=== PATIENT | male | born 1975 | race Hispanic/Latino ===

== ENCOUNTER 2016-07-16 08:17 | Inpatient (IN) | payer OTHER, SELFPAY ==
[2016-07-16 08:18] VITALS: BMI 28.1
--- NOTE | 2016-07-16 08:38 | ED PDOC ---
Arrival/HPI - General Chief Complaint: Chest Pain Time Seen by Provider: 07/16/16 08:21 Historian: Patient, Family - History of Present Illness Narrative History of Present Illness (Text): 07/16/16 08:35 41 year old male presents to the emergency department with chest pain that began at 02:00 today. Patient states the pain is constant and radiating to the left shoulder/back. 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 Patient reports he is a smoker. He denies pleuritic pain. Denies leg pain or swelling. Denies headache or neck pain. Denies fever or trauma. States he awoke with this chest pain, and it has been constant. States pain not worse with movements or exertion. Denies recent URI symptoms or cough. PMD: Dr. Paula Colon ([facility]) Time/Duration: 24 hours Symptom Onset: Sudden Symptom Course: Unchanged Modifying Factors (Text): None Associated Symptoms (Text): None Past Medical History - Provider Review Nursing Documentation Reviewed: Yes - Infectious Disease Hx of Infectious Diseases: None - Tetanus Immunization Tetanus Immunization: Unknown - Cardiac Hx Hypertension: Yes - Integumentary Other/Comment: lump on left forehead pt stated "I have had that for years" 2cm x 2cm - Musculoskeletal/Rheumatological Hx Falls: No - Psychiatric Hx Depression: No Hx Emotional Abuse: No Hx Physical Abuse: No Hx Substance Use: No - Surgical History Other/Comment: sx 2008 2 discs cervical 2 discs lumbar spine - Anesthesia Hx Anesthesia: Yes Hx Anesthesia Reactions: No Hx Malignant Hyperthermia: No - Suicidal Assessment Feels Threatened In Home Enviroment: No Family/Social History - Physician Review Nursing Documentation Reviewed: Yes Family/Social History: Unknown Family HX, Other (denies CAD or NE in mother or father, uncle reportedly with hx of NE) Smoking Status: Heavy Smoker > 10 Cigarettes Daily Hx Alcohol Use: No Hx Substance Use: No Hx Substance Use Treatment: No Allergies/Home Meds Allergies/Adverse Reactions: Allergies No Known Allergies Allergy (Verified 07/16/16 08:26) Home Medications: Home Meds Medication Instructions Recorded Confirmed Clonazepam 0.2 mg PO BID 12/11/13 07/16/16 Metoprolol Succinate 100 mg PO DAILY 12/11/13 07/16/16 OXcarbazepine [Trileptal] 300 mg PO BID 07/16/16 07/16/16 amLODIPine [Norvasc] 5 mg PO DAILY 07/16/16 07/16/16 Review of Systems - Review of Systems Constitutional: Fatigue. absent: Fevers Eyes: absent: Eye Pain ENT: absent: Hearing Changes Respiratory: absent: SOB, Other Cardiovascular: Chest Pain. absent: Edema, Calf Pain, LEYVA Gastrointestinal: absent: Abdominal Pain, Diarrhea Genitourinary Male: absent: Dysuria Musculoskeletal: Back Pain. absent: Neck Pain Skin: absent: Rash Neurological: absent: Headache, Dizziness, Focal Weakness Endocrine: absent: Polyuria Hemo/Lymphatic: absent: Easy Bleeding Psychiatric: absent: Depression Physical Exam - Physical Exam Narrative Physical Exam (Text): Head: Atraumatic. Normocephalic. Eyes: PERRL. EOMI. Conjunctivae are not pale. ENT: Mucous membranes are moist and intact. Oropharynx is clear and symmetric. Neck: Supple. Full ROM. No JVD. No lymphadenopathy. Cardiovascular: Regular rate. Regular rhythm. Mild systolic murmur. BP and pulses equal in both upper extremities. Pulmonary/Chest: No evidence of respiratory distress. Clear to auscultation bilaterally. No wheezing, rales or rhonchi. Abdominal: Soft and non-distended. There is no tenderness. No rebound, guarding, or rigidity. No organomegaly. Good bowel sounds. Back: No CVA tenderness. No reproducible back pain. Extremities: No edema. No cyanosis. No clubbing. Full range of motion in all extremities. No calf tenderness. No pain with palpation or ROM of shoulder. Skin: Skin is warm and dry. No petechiae. No purpura. Neurological: Alert, awake, and oriented to person, place, time, and situation. Normal speech. Psychiatric: Good eye contact. Normal interaction, affect, and behavior. Vital Signs Reviewed: Yes Vital Signs Temp Pulse Resp BP Pulse Ox 07/16/16 10:50 80 26 H 140/100 H 100 07/16/16 10:49 78 15 100 07/16/16 10:44 74 18 110/72 100 07/16/16 10:15 75 18 154/106 H 100 07/16/16 08:22 98.3 F 77 19 151/104 H 99 Temperature: Afebrile Blood Pressure: Hypertensive Pulse: Regular Respiratory Rate: Normal Appearance: Positive for: Non-Toxic, Uncomfortable Pain Distress: Mild Mental Status: Positive for: Alert and Oriented X 3 Medical Decision Making ED Course and Treatment: Differential Diagnosis include but are not limited to: Plan: Will obtain chest x-ray and check labs. Prior Visits: Notes and results from previous visits were reviewed. Patient last seen in ED on 12/11/13 and admitted. Progress Notes: Dr. Dejesus was paged at 08:38AM to review initial EKG. Patient has prior EKG from 12/11/13 which was reviewed. He did have some st changes noted on EKG from this date, although current EKG appears to reveal hyperacute t wave morphology and st segment elevations in inferior leads. EKG reviewed with Dr. Dejesus, on -call cardiac cath ag equipment field service technician. Patient had episode of chest pain at work recently. He states that he was recently seen by a ag equipment field service technician over the past two weeks and has a "normal' stress test and echocardiogram. Patient has equal pulses and blood pressure in both upper extremities. Mediastinum is not widened on chest x-ray. Troponin is in indeterminate range at 0.05. Patient was reevaluated and states pain had initially resolved spotaneously but has returned at 10:15 and is radiating to the left upper back. Patient took his aspirin and metoprolo PRIOR TO ARRIVAL. Patient noted to become diaphoretic and bradycardic. Repeat EKG ordered. Repeat EKG was performed at 10:23 based on new and worsening symptoms. EKG findings were consistent with acute myocardial infarction. [facility] was called. Repeat EKG and patient's new and worsening symptoms reviewed with on- call cath ag equipment field service technician, Dr. Dejesus. Plavix and heparin ordered. Morphine ordered for pain with no relief. Nausea intermittent, improved. I updated patient's family with patients change in EKG and condition, as well as discussed with patient need for emergency cardiology evaluation and intervention. BP remained stable in ED. Care transferred to house doctor in ED for transportation to cardiac cath. Case d/w Dr. Mcpherson, oncall physician, accepts care to his service. - Critical Care Critical Care Minutes: 45 minutes - Lab Interpretations Lab Results: 07/16/16 09:02 07/16/16 09:02 Lab Results 07/16/16 10:00: Urine Color Yellow, Urine Appearance Clear, Urine pH 6.0, Ur Specific [place] 1.020, Urine Protein Negative, Urine Glucose (UA) Negative, Urine Ketones Negative, Urine Blood Negative, Urine Nitrate Negative, Urine Bilirubin Negative, Urine Urobilinogen 0.2, Ur Leukocyte Esterase Negative 07/16/16 09:02: WBC 11.9 H, RBC 4.48, Hgb 15.1, Hct 43.5, MCV 97.1, MCH 33.7, MCHC 34.7, RDW 13.3, Plt Count 313, MPV 10.9, Gran % 63.5, Lymph % (Auto) 27.5, [place] % (Auto) 6.5 H, Eos % (Auto) 1.8, Baso % (Auto) 0.7, Gran # 7.58 H, Lymph # 3.3, [place] # 0.8 H, Eos # 0.2, Baso # 0.08, PT 10.0, INR 0.93, APTT 23.5 L, D- Dimer, Quantitative 0.19, Sodium 143, Potassium 4.7, Chloride 102, Carbon Dioxide 30, Anion Gap 16, BUN 8, Creatinine 0.8, Est GFR ( Amer) > 60, Est GFR (Non-Af Amer) > 60, Random Glucose 127 H, Calcium 10.8 H, Total Bilirubin 0.5, AST 24, ALT 32, Alkaline Phosphatase 74, Lactate Dehydrogenase 407, Total Creatine Kinase 61, Troponin I 0.05, Total Protein 7.5, Albumin 4.2, Globulin 3.3, Albumin/Globulin Ratio 1.3 - RAD Interpretation Radiology Orders: 07/16/16 08:37 CHEST PORTABLE [RAD] Stat - EKG Interpretation EKG Interpretation (Text): 07/16/16 18:38 EKG 08:21 normal sinus rhythm, st changes in inferior leads and lateral leads, possible early repolarization cannot exclude ischemia, compared to EKG from 2013 EKG 10:23 normal sinus rhythm rate of [address] elevations in inferior leads and leads v4-v6, acutely elevated when compared to previous Interpreted by ED Physician: Yes Type: 12 lead EKG - Medication Orders Current Medication Orders: Alprazolam (Xanax) 0.25 mg PO TID ELOISA PRN Reason: Protocol Stop: 07/23/16 18:01 Last Admin: 07/16/16 18:05 Dose: 0.25 MG Behavioural Document 07/16/16 18:05 GLI (Rec: 07/16/16 18:[address]) Maintenance Maintenance Dose Yes Nonmedicinal Nonmedicinal Interventions Redirect Behavior Behavior for Medication: Anxiety Atorvastatin Calcium (Lipitor) 80 mg PO DIN [facility] Last Admin: 07/16/16 18:04 Dose: 80 MG Clopidogrel Bisulfate (Plavix) 75 mg PO DAILY [facility] Sodium Chloride (Sodium Chloride 0.9%) 1,000 mls @ 100 mls/hr IV .Q10H [facility] Stop: 07/16/16 21:29 Last Admin: 07/16/16 18:21 Dose: 100 MLS/HR eMAR Start Stop Document 07/16/16 18:21 GLI (Rec: 07/16/16 18:[address]) Intravenous Solution Start Date 07/16/16 Start Time 18:21 End Date 07/16/16 Nitroglycerin/Dextrose (Nitroglycerin 50 Mg/250 Ml D5w) 250 mls @ 1.5 mls/hr IV .Q24H PRN; Protocol; 5 MCG/MIN PRN Reason: chest pain Last Admin: 07/16/16 12:00 Dose: 1.5 MLS/HR eMAR Start Stop Document 07/16/16 12:00 GLI (Rec: 07/16/16 12:[address]) Intravenous Solution Start Date 07/16/16 Start Time 12:00 End Date 07/16/16 Metoprolol Tartrate (Lopressor) 25 mg PO Q6H [facility] Last Admin: 07/16/16 18:05 Dose: 25 MG MAR Pulse and Blood Pressure Document 07/16/16 18:05 GLI (Rec: 07/16/16 18:[address]) Pulse Pulse Rate (60-90 beats/min) 90 Blood Pressure Blood Pressure (100/60-150/90 mm Hg) 121/88 Morphine Sulfate (Morphine) 2 mg IVP Q2H PRN PRN Reason: Pain, moderate (4-7) Last Admin: 07/16/16 18:14 Dose: 2 MG MAR Pain Assessment Document 07/16/16 18:14 GLI (Rec: 07/16/16 18:[address]) Pain Reassessment Is this a pain reassessment? No Sleep Is patient sleeping during reassessment? No Presence of Pain Presence of Pain Yes Pain Scale Used Pain Scale Used Numeric Location Left, Right or Bilateral Left Pain Location Body Site Chest Description Description Constant Intensity of Pain at present 10 Pain Behavior Rubbing Site Facial Grimacing Aggravating Factors Changing Position Alleviating Factors Medication Effects of Pain restless IVP Administration Document 07/16/16 18:14 GLI (Rec: 07/16/16 18:[address]) Charges for Administration # of IVP Administrations 1 Oxcarbazepine (Trileptal) 300 mg PO BID ELOISA PRN Reason: Protocol Last Admin: 07/16/16 18:04 Dose: 300 MG Behavioural Document 07/16/16 18:04 GLI (Rec: 07/16/16 18:[address]) Maintenance Maintenance Dose Yes Nonmedicinal Nonmedicinal Interventions Redirect Behavior Behavior for Medication: Anxiety Ramipril (Altace) 5 mg PO DAILY ELOISA Discontinued Medications Alprazolam (Xanax) 0.25 mg PO STAT STA PRN Reason: Protocol Stop: 07/16/16 12:14 Last Admin: 07/16/16 12:18 Dose: 0.25 MG Behavioural Document 07/16/16 12:18 [facility] (Rec: 07/16/16 12:[address]) Maintenance Maintenance Dose Yes Nonmedicinal Nonmedicinal Interventions Redirect Re-Assess: Reassess Psych Meds Document 07/16/16 13:18 GLI (Rec: 07/16/16 16:[address]) Reassess Psych Med Effective Aspirin (Aspirin Chewable) 81 mg PO STAT STA Stop: 07/16/16 08:41 Last Admin: 07/16/16 08:59 Dose: Atropine Sulfate (Atropine) Confirm Administered Dose 1 mg .ROUTE .STK-MED ONE Stop: 07/16/16 10:39 Last Admin: 07/16/16 11:40 Dose: Clopidogrel Bisulfate (Plavix) Confirm Administered Dose 600 mg .ROUTE .STK-MED ONE Stop: 07/16/16 10:30 Last Admin: 07/16/16 10:51 Dose: Clopidogrel Bisulfate (Plavix) 600 mg PO STAT STA Stop: 07/16/16 10:28 Last Admin: 07/16/16 10:28 Dose: 600 MG Fentanyl (Fentanyl) Confirm Administered Dose 100 mcg .ROUTE .STK-MED ONE Stop: 07/16/16 10:40 Last Admin: 07/16/16 11:14 Dose: 100 MCG Comments: IV. 50 mcg @ [address] Dejesus. 50 mcg @ [address] Dejesus MAR Pain Assessment Document 07/16/16 11:14 [facility] (Rec: 07/16/16 11:40 KMR [facility]) Pain Reassessment Is this a pain reassessment? No Sleep Is patient sleeping during reassessment? No Heparin Sodium (Porcine) (Heparin) Confirm Administered Dose 5,000 units .ROUTE .STK-MED ONE Stop: 07/16/16 10:29 Last Admin: 07/16/16 10:51 Dose: Heparin Sodium (Porcine) (Heparin) 5,000 units IV ONCE ONE PRN Reason: Protocol Stop: 07/16/16 10:28 Last Admin: 07/16/16 10:50 Dose: 5,000 UNITS eMAR Start Stop Document 07/16/16 10:50 [facility] (Rec: 07/16/16 10:50 [facility] [id number]) Intravenous Solution Start Date 07/16/16 Start Time 10:27 End Date 07/16/16 End time 10:29 Total Infusion Time 2 Heparin Sodium (Porcine) (Heparin) Confirm Administered Dose 10,000 units .ROUTE .STK-MED ONE Stop: 07/16/16 10:39 Last Admin: 07/16/16 11:13 Dose: 3,000 UNITS Comments: IV per Dr. Dejesus Nitroglycerin/Dextrose (Nitroglycerin 50 Mg/250 Ml D5w) Confirm Administered Dose 250 mls @ ud IV .STK-MED ONE Stop: 07/16/16 10:41 Last Admin: 07/16/16 11:20 Dose: 0.2 MG Comments: IC by Dr Dejesus eMAR Start Stop Document 07/16/16 11:20 [facility] (Rec: 07/16/16 11:42 [facility] Intravenous Solution Start Date 07/16/16 Start Time 11:20 End Date 07/16/16 End time 11:20 Total Infusion Time 0 Heparin Sodium (Porcine) (Heparin 1000 Units/500 Ml Ns) Confirm Administered Dose 1,500 mls @ ud IV .STK-MED ONE Stop: 07/16/16 10:41 Sodium Chloride (Sodium Chloride 0.9%) 500 mls @ 1,000 mls/hr IV .Q30M STA Stop: 07/16/16 11:11 Last Admin: 07/16/16 10:53 Dose: 1,000 MLS/HR eMAR Start Stop Document 07/16/16 10:53 [facility] (Rec: 07/16/16 10:54 [facility] [id number]) Intravenous Solution Start Date 07/16/16 Start Time 10:53 End Date 07/16/16 End time 11:25 Total Infusion Time 32 Iodixanol (Visipaque 320 Mg/Ml 100 Ml) Confirm Administered Dose 100 ml IV .STK- MED ONE Stop: 07/16/16 10:41 Last Admin: 07/16/16 11:43 Dose: Iodixanol (Visipaque 320 Mg/Ml 200 Ml) Confirm Administered Dose 200 ml IV .STK- MED ONE Stop: 07/16/16 10:41 Last Admin: 07/16/16 11:05 Dose: 200 ML Comments: During cath eMAR Start Stop Document 07/16/16 11:05 [facility] (Rec: 07/16/16 11:43 [facility] Intravenous Solution Start Date 07/16/16 Start Time 11:05 End Date 07/16/16 End time 11:05 Total Infusion Time 0 Iohexol (Omnipaque 350mg/Ml 50 Ml) Confirm Administered Dose 50 ml .ROUTE .STK- MED ONE Stop: 07/16/16 10:41 Last Admin: 07/16/16 11:05 Dose: 50 ML Comments: During cath Lidocaine HCl (Lidocaine 2% 20ml Vial) Confirm Administered Dose 20 ml .ROUTE .STK-MED ONE Stop: 07/16/16 10:39 Last Admin: 07/16/16 11:05 Dose: 8 ML Comments: SC into right groin Midazolam HCl (Versed Inj) Confirm Administered Dose 2 mg .ROUTE .STK-MED ONE Stop: 07/16/16 10:40 Last Admin: 07/16/16 11:04 Dose: 2 MG Comments: IV by Dr. Dejesus Morphine Sulfate (Morphine) Confirm Administered Dose 2 mg .ROUTE .STK-MED ONE Stop: 07/16/16 10:38 Last Admin: 07/16/16 10:35 Dose: 2 MG MAR Pain Assessment Document 07/16/16 10:35 [facility] (Rec: 07/16/16 10:53 [facility] [id number]) Pain Reassessment Is this a pain reassessment? No Sleep Is patient sleeping during reassessment? No Presence of Pain Presence of Pain Yes Pain Scale Used Pain Scale Used Numeric Location Pain Location Body Site Chest Description Intensity of Pain at present 10 Re-Assess: MAR Pain Assessment Document 07/16/16 11:35 GLI (Rec: 07/16/16 16:05 GLI [id number]) Pain Reassessment Is this a pain reassessment? Yes Sleep Is patient sleeping during reassessment? Yes Nitroglycerin (Nitrostat Sl Tab) Confirm Administered Dose 0.4 mg SL .STK-MED ONE Stop: 07/16/16 11:53 Last Admin: 07/16/16 11:58 Dose: 0.4 MG Non-Formulary Medication (Clonazepam [Clonazepam]) 0.2 mg PO BID ELOISA Ondansetron HCl (Zofran Inj) Confirm Administered Dose 4 mg .ROUTE .STK-MED ONE Stop: 07/16/16 10:49 Last Admin: 07/16/16 11:08 Dose: Ondansetron HCl (Zofran Inj) 4 mg IVP ONCE ONE Stop: 07/16/16 10:48 Last Admin: 07/16/16 10:48 Dose: 4 MG IVP Administration Document 07/16/16 10:48 [facility] (Rec: 07/16/16 10:54 [facility] [id number]) Charges for Administration # of IVP Administrations 1 - Scribe Statement The provider has reviewed the documentation as recorded by the Shilo Galarza Provider Scribe Attestation: All medical record entries made by the Shilo were at my direction and personally dictated by me. I have reviewed the chart and agree that the record accurately reflects my personal performance of the history, physical exam, medical decision making, and the department course for this patient. I have also personally directed, reviewed, and agree with the discharge instructions and disposition. Disposition/Present on Arrival - Present on Arrival Any Indicators Present on Arrival: No History of DVT/PE: No History of Uncontrolled Diabetes: No Urinary Catheter: No History of Decub. Ulcer: No History Surgical Site Infection Following: None - Disposition Have Diagnosis and Disposition been Completed?: Yes Diagnosis: Acute myocardial infarction Disposition: HOSPITALIZED Disposition Time: 10:45 Patient Plan: Admission, ICU Condition: CRITICAL
[2016-07-16 09:03] LABS: ADD MANUAL DIFF? NO
[2016-07-16 09:06] LABS: BASO # 0.08 [, K/mm3] (0.0-2.0); BASO % 0.7 % (0.0-3.0); EOS # 0.2 (0.0-0.7); EOS % 1.8 % (1.5-5.0); GRAN # 7.58 (1.4-6.5); GRAN % 63.5 % (50.0-68.0); HEMATOCRIT 43.5 % (42.0-52.0); LYMPH # 3.3 (1.2-3.4); LYMPH % 27.5 % (22.0-35.0); MEAN CELL VOLUME 97.1 fL (80.0-105.0); MEAN CORPUSCULAR HEMOGLOBIN 33.7 pg (25.0-35.0); MEAN CORPUSCULAR HGB CONC 34.7 g/dl (31.0-37.0); MEAN PLATELET VOLUME 10.9 fl (7.0-11.0); MONO # 0.8 (0.1-0.6); MONO % 6.5 % (1.0-6.0); PLATELET COUNT 313 [, 10^3/uL] (120.0-450.0); RED CELL DISTRIBUTION WIDTH 13.3 % (11.5-14.5); WHITE BLOOD COUNT 11.9 [, 10^3/ul] (4.5-11.0)
[2016-07-16 09:19] LABS: ALB/GLOB RATIO 1.3 (1.1-1.8); ALKALINE PHOSPHATASE 74 U/L (38-133); ALT/SGPT 32 U/L (7-56); AST/SGOT 24 U/L (15-59); BILIRUBIN,TOTAL 0.5 mg/dL (0.2-1.3); BLOOD UREA NITROGEN 8 mg/dL (7-21); CALCIUM 10.8 mg/dL (8.4-10.5); CARBON DIOXIDE 30 mmol/L (21-33); CHLORIDE 102 mmol/L (98-107); GFR AFRICAN-AMERICAN > 60; GLUCOSE,RANDOM 127 mg/dL (70-110); POTASSIUM 4.7 mmol/L (3.6-5.0); SODIUM 143 mmol/L (132-148); TOTAL PROTEIN 7.5 g/dL (5.8-8.3)
[2016-07-16 09:24] LABS: INR 0.93 (0.93-1.08); PARTIAL THROMBOPLASTIN TIME 23.5 Seconds (23.7-30.8)
[2016-07-16 09:25] LABS: D DIMER 0.19 mg/L FEU (0-0.50)
[2016-07-16 09:31] LABS: TROPONIN I 0.05 ng/mL
[2016-07-16 10:04] LABS: URINE BILIRUBIN NEGATIVE (NEGATIVE); URINE BLOOD NEGATIVE (NEGATIVE); URINE GLUCOSE (UA) NEGATIVE (NEGATIVE); URINE KETONE NEGATIVE (NEGATIVE); URINE LEUKOCYTE ESTERASE NEGATIVE Leu/uL (NEGATIVE); URINE PROTEIN NEGATIVE mg/dL (<30 mg/dL); URINE UROBILINOGEN 0.2 E.U./dL (<1 E.U./dL)
[2016-07-16 10:09] LABS: URINE APPEARANCE CLEAR (CLEAR); URINE COLOR YELLOW (YELLOW)
[2016-07-16] MEDS ORDERED: Nitroglycerin 2% Ointment Foilpak UD TOP STA (10:12)
[2016-07-16] MEDS ORDERED: Morphine 2 mg/ml ISec ONE (10:37)
[2016-07-16] MEDS ORDERED: Lidocaine 2% Inj (20ml) ONE (10:38)
[2016-07-16] MEDS ORDERED: Midazolam 2 MG/2 ML VIAL ONE (10:39)
[2016-07-16] MEDS ORDERED: Nitroglycerin 50mg in D5W 250 ML IV ONE (10:40)
[2016-07-16] MEDS ORDERED: Iohexol 350mgl/ml 50 ML ONE (10:40)
[2016-07-16] MEDS ORDERED: Iodixanol 320 MG/ML 100 ML BOTTLE IV ONE (10:40)
[2016-07-16] MEDS ORDERED: Iodixanol 320 MG/ML 200 ML BOTTLE IV ONE (10:40)
[2016-07-16] MEDS ORDERED: Sodium Chloride 0.9% 500 ML IV STA (10:42)
--- NOTE | 2016-07-16 11:42 | CP.PCM.PN ---
Subjective - Date & Time of Evaluation Date of Evaluation: 07/16/16 Time of Evaluation: 10:27 - Subjective Subjective: Responded stat to "[facility] in the ER". After initial treatment in the ER,with O2 and cardiac moniter in place and accompanied by the staff from the ER and myself,pt was transferred to the dental laboratory technician apprentice and endorsed to the staff there. Objective - Vital Signs/Intake and Output Vital Signs (last 24 hours): Temp Pulse Resp BP Pulse Ox 98.3 F 74 18 110/72 100 07/16/16 08:22 07/16/16 10:44 07/16/16 10:44 07/16/16 10:44 07/16/16 10:44 - Medications Medications: Current Medications Amlodipine Besylate (Norvasc) 5 mg PO DAILY ELOISA Atorvastatin Calcium (Lipitor) 80 mg PO DIN ELOISA Metoprolol Succinate (Toprol Xl) 50 mg PO DAILY ELOISA Oxcarbazepine (Trileptal) 300 mg PO BID ELOISA PRN Reason: Protocol - Labs Labs: PT 10.0 Seconds (9.9-11.8) 07/16/16 09:02 INR 0.93 (0.93-1.08) 07/16/16 09:02 APTT 23.5 Seconds (23.7-30.8) L 07/16/16 09:02
[2016-07-16] MEDS: Nitroglycerin 50mg in D5W 250 ML IV PRN (12:00)
[2016-07-16] MEDS: Morphine 2 mg/ml ISec IVP PRN ×3 (12:00→20:57)
[2016-07-16] MEDS: Sodium Chloride 0.9% 1,000 ML IV SCH ×2 (12:06→18:21)
--- NOTE | 2016-07-16 12:49 | RAD ---
HISTORY: Chest pain COMPARISON: 12/11/2013. FINDINGS: LUNGS: No active pulmonary disease. PLEURA: No significant pleural effusion identified, no pneumothorax apparent. CARDIOVASCULAR: No radiographic findings to suggest acute or significant cardiovascular disease. OSSEOUS STRUCTURES: No significant abnormalities. VISUALIZED UPPER ABDOMEN: Normal. OTHER FINDINGS: None. IMPRESSION: No active disease. No significant interval change compared to the prior examination(s).
--- NOTE | 2016-07-16 15:51 | CARD ---
APPROVED REPORT EKG Measurement Heart [id number] <Conclusion> Normal sinus rhythm Inferior infarct, possibly acute Lateral injury pattern ACUTE LA Abnormal ECG
--- NOTE | 2016-07-16 15:56 | CARD ---
APPROVED REPORT EKG Measurement Heart [id number] <Conclusion> Normal sinus rhythm Early repolarization vs early injury pattern Normal ECG
[2016-07-16] MEDS ORDERED: CLONAZEPAM PO SCH (18:00)
--- NOTE | 2016-07-16 20:13 | CARDCATH ---
PROCEDURE DATE: 07/16/2016 HISTORY: This is a 41-year-old man with a history of hypertension and tobacco abuse who presents to the Emergency Room with severe chest discomfort. He reportedly has had chest pain on and off for the past week and had a recent stress test and echocardiogram which were reportedly unremarkable. Initial EKG was nondiagnostic; however, repeat cardiogram with persistent pain and marked bradycardia revealed evidence of marked inferolateral ST elevations. He was brought emergently to the cardiac catheterization lab. INDICATION: Acute myocardial infarction. FINDINGS: HEMODYNAMICS: The aortic pressure was 140/90 with a left ventricular pressure of 140/15. CORONARY ANATOMY: 1. The left mainstem was short and normal. 2. Left anterior descending artery had mild irregularities in its mid and distal segment. A large first diagonal branch had a long 90% stenosis. This was a moderate size vessel. 3. The left circumflex artery gave rise to 2 obtuse marginal branches, the second which was large and occluded proximally. 4. The right coronary artery was codominant and had mild irregularities. LEFT VENTRICULOGRAPHY: Hand injection performed in the left ventricle revealing evidence of relatively normal wall motion with an ejection fraction of 60%. CORONARY INTERVENTION: The patient received 5000 units of heparin in the Emergency Room. However, the ACT was still only 160 seconds. An additional 3000 units of heparin was administered. A 3.5 EBU guide catheter was utilized and the lesion in the obtuse marginal branch successfully crossed with use of a Irma wire. Following this, initial inflations were performed with a 2.5 x 10 mm balloon. Subsequently, after reconstitution f the flow there was evidence of a long diffuse 90% stenosis in the proximal segment of the first obtuse marginal branch. Subsequently, a 3.0 x 30 mm Resolut drug-eluting stent was taken and advanced into the obtuse marginal and inflated to 14 atmospheres. There was 0% residual stenosis following the intervention. There was no evidence of significant thrombus seen. VLAD grade 0 flow was present before intervention and VLAD grade 3 flow present following intervention. RIGHT FEMORAL ARTERIOGRAPHY: Right femoral arteriogram revealed no evidence of significant disease and appropriate level of arterial puncture. The puncture site was then closed with deployment of an Angio-Seal device. CONCLUSION: Acute myocardial infarction secondary to occluded large obtuse marginal branch, severe first diagonal disease and normal LV function. Staged PCI of obtuse marginal branch with a 3.0 x 30 mm Resolut drug-eluting stent. RECOMMENDATIONS: Aspirin and Plavix therapy will be continued for at least 1 year. Beta jose and statin therapy as well as TUNG inhibitor has been initiated. Consideration will be given to staged PCI of this diagonal branch. Hector Dejesus MD cc: [id number] TT: 07/16/2016 20:13:03 sn MTDD
--- NOTE | 2016-07-16 20:20 | CON ---
DATE: 07/16/2016 REQUESTING PHYSICIAN: Dr. Mcpherson REASON FOR CONSULTATION: Acute myocardial infarction. HISTORY: This is a 41-year-old man who presents to the Emergency Room with severe retrosternal chest discomfort. Initial electrocardiogram was nondiagnostic. While in the Emergency Room, he had worse jackie pain with an episode of bradycardia. Repeat electrocardiogram showed evidence of marked ST elev ations in the inferolateral leads. He was brought emergently to the cardiac catheterization lab. He continues to have ongoing chest pain. He apparently has been having pain for the past 2 weeks and w as seen by his physician and underwent a stress test and echocardiogram which was reportedly unremark able. He has no prior cardiac history. He is a smoker of 1-2 packs per day. He also has a history of hypertension. There is no family history of premature heart disease. His cholesterol status is u ncertain. PAST MEDICAL HISTORY: Notable for the problems mentioned above. He underwent prior back surgery for lumbar and cervical disk issues. MEDICATIONS AT HOME: Metoprolol, Norvasc, and Trileptal, as well as clonazepam. ALLERGIES: He has no reported allergies. 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 He drinks occasionally. FAMILY HISTORY: Both parents are alive and well. REVIEW OF SYSTEMS: A 10 point review of systems limited, but unremarkable. PHYSICAL EXAMINATION: GENERAL: He is an anxious appearing middle-aged man. VITAL SIGNS: His blood pressure is 110/70 with a pulse of 74 in sinus, respirations are 16. He is a febrile. HEENT: Male pattern baldness present. Normocephalic, atraumatic. NECK: Supple, no JVD. CHEST: A few scattered rhonchi. HEART: PMI normal position. No pathologic gallops noted. ABDOMEN: Soft, nontender with normoactive bowel sounds. EXTREMITIES: No clubbing, cyanosis or edema. SKIN: Warm and dry. PSYCHIATRIC: Normal mood and affect. DIAGNOSTIC DATA: Electrocardiogram reveals sinus rhythm with marked ST elevations in the inferolater al leads. Chest x-ray will be reviewed. DIAGNOSTIC DATA: White count is 11.9. Hemoglobin and hematocrit 15.1 and 43.5 with a platelet count of 313,000. PT, PTT are normal. Potassium 4.7. BUN and creatinine 8 and 0.8. Glucose 127. Initi al troponin 0.05. IMPRESSION: 1. Acute inferolateral wall myocardial infarction. 2. History of hypertension and tobacco abuse. RECOMMENDATIONS: The patient will be brought emergently to the catheterization lab to undergo cardia c catheterization and possible coronary intervention if suitable anatomy is found. Risks and benefit s have been discussed with him. Smoking abstinence will be encouraged. Further plans will be made b ased upon the results of catheterization. Thank you for this consultation. Hector Dejesus MD cc: [id number] TT: 07/16/2016 20:19:55 Confirmation # [id number] Dictation # [id number]
--- NOTE | 2016-07-16 20:40 | CON ---
DATE: 07/16/2016 SUBJECTIVE: This is a 41-year-old gentleman without significant past medical history who presented with chest pain that began at 2:00 p.m. today. The pain was described as constant, radiating to the left shoulder. The patient did have similar episodes about 2 weeks ago, which was attributed to musculoskeletal origin at that time. The pain resolved at that time as well; however, came back earlier today. The pain appeared to be getting worse with exertion and relieved to some degree at rest. However, pain again is constant. PAST MEDICAL HISTORY: Hypertension. SOCIAL HISTORY: The patient is a heavy smoker. He smokes more than 10 cigarettes a day. No alcohol or illicit drug abuse. FAMILY HISTORY: Noncontributory. MEDICATIONS AT HOME: Metoprolol, Trileptal, and Norvasc. ALLERGIES: NKDA. REVIEW OF SYSTEMS: Revealed 12 organ system other than mentioned in history of present illness is negative. PHYSICAL EXAMINATION: VITAL SIGNS: Heart rate 78, blood pressure 130/86, oxygen saturation 100% on nasal cannula, respiratory rate 18, temperature 98.2. HEAD AND NECK: Atraumatic. LUNGS: Clear to auscultation bilaterally. HEART: Regular rate and rhythm. S1, S2 normal. ABDOMEN: Soft, nontender, nondistended. MUSCULOSKELETAL: No C/C/E. NEUROLOGIC: The patient moves all extremities spontaneously. SKIN: Moist. PSYCHIATRIC: The patient is alert and oriented x 3. LABORATORY DATA: WBC 11.9, hemoglobin 15.1, platelet count 313. Sodium 143, potassium 4.7, chloride 102, carbon dioxide 30, BUN 8, creatinine 0.8, glucose 127, AST 24, ALT 32, troponin 0.05. INR 0.923, PTT 23.5. EKG showed ST elevation in III, aVF, V4, V5, V6, and reciprocal changes avL. Chest x-ray showed no active disease, no significant interval change compared with the prior examination. ASSESSMENT AND PLAN: This is a 41-year-old gentleman with ST elevated myocardial infarction, status post percutaneous coronary intervention and stent placement in the right coronary artery. The patient had some chest pain after procedure. Nitroglycerin drip started. Morphine given. The patient will be continued on Plavix, aspirin, Leif inhibitors, beta blockers, Lipitor. We will continue to target euvolemia, euglycemia, normothermia and oxygen saturation more than 90%. We will continue with deep venous thrombosis and gastrointestinal prophylaxis. Addendum: patient started to have chest pain post procedure. Nitro drip started , Dr. Dejesus notified--agreed with nitro, ordered Ms04, no trip to director of labor and delivery. ccm time 40 min Giancarlo Harrell MD cc: [id number] TT: 07/16/2016 20:40:08 Confirmation # [id number] Dictation # [id number] MTDD
--- NOTE | 2016-07-16 21:21 | CP.PCM.HP ---
History of Present Illness - History of Present Illness History of Present Illness: CC: Chest Pain History of Present Illness: A 41 year old male presents to the emergency department with chest pain that began at 02:00 today. Patient states the pain is constant and radiating to the left shoulder/back. 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 Patient reports he is a smoker. He denies pleuritic pain. Denies leg pain or swelling. Denies headache or neck pain. Denies fever or trauma. States he awoke with this chest pain, and it has been constant. States pain not worse with movements or exertion. Denies recent URI symptoms or cough. In the ER, Code heart was called for worsening symptoms and ST elevation in the inferior leads. Emergent Cardiac Catheterization showed 1st Obtuse Marginal Branch of the LCX Coronary artery was completely occluded and angioplasty with stent was done. EF 60%. Currently still C/o on and off chest pain, and on nitroglycerine drip. Denies dyspnea or orthopnea. Had recent Cardiac Stress test and Holter monitor for persistent tachycardia. PMD: Dr. Paula Colon ([facility]) Present on Admission - Present on Admission Any Indicators Present on Admission: No History of DVT/PE: No History of Uncontrolled Diabetes: No Urinary Catheter: No Decubitus Ulcer Present: No Review of Systems - Review of Systems All systems: reviewed and no additional remarkable complaints except - Cardiovascular Cardiovascular: As Per HPI Past Patient History - Infectious Disease Hx of Infectious Diseases: None - Tetanus Immunizations Tetanus Immunization: Unknown - Past Medical History & Family History Past Medical History?: Yes Pertinent Family History: Uncle Heart attack - Past Social History Smoking Status: Heavy Smoker > 10 Cigarettes Daily Alcohol: Social Drugs: Denies - CARDIAC Hx Hypertension: Yes - INTEGUMENTARY Other/Comment: lump on left forehead pt stated "I have had that for years" 2cm x 2cm - MUSCULOSKELETAL/RHEUMATOLOGICAL Hx Falls: No - PSYCHIATRIC Hx Depression: No Hx Emotional Abuse: No Hx Physical Abuse: No Hx Substance Use: No - SURGICAL HISTORY Other/Comment: sx 2008 2 discs cervical 2 discs lumbar spine - ANESTHESIA Hx Anesthesia: Yes Hx Anesthesia Reactions: No Hx Malignant Hyperthermia: No Meds Allergies/Adverse Reactions: Allergies Allergy/AdvReac Type Severity Reaction Status Date / Time No Known Allergies Allergy Verified 07/16/16 08:26 Physical Exam - Constitutional Appears: Well, No Acute Distress - Head Exam Head Exam: ATRAUMATIC, NORMAL INSPECTION, NORMOCEPHALIC - Eye Exam Eye Exam: EOMI, Normal appearance, PERRL Pupil Exam: NORMAL ACCOMODATION, PERRL - ENT Exam ENT Exam: Mucous Membranes Moist, Normal Exam - Neck Exam Neck exam: Positive for: Full Rom, Normal Inspection - Respiratory Exam Respiratory Exam: Clear to Auscultation Bilateral, NORMAL BREATHING PATTERN. absent: Rales - Cardiovascular Exam Cardiovascular Exam: REGULAR RHYTHM, +S1, +S2 - GI/Abdominal Exam GI & Abdominal Exam: Normal Bowel Sounds, Soft. absent: Tenderness - Extremities Exam Extremities exam: Positive for: full ROM, normal capillary refill, normal inspection. Negative for: pedal edema Additional comments: Right Groin with no hematoma. Dorsalis pedis palpable and good volumem warm LE on the same side of the cath site. - Back Exam Back exam: FULL ROM, NORMAL INSPECTION - Neurological Exam Neurological exam: Alert, CN II-XII Intact, Normal Gait, Oriented x3, Reflexes Normal - Psychiatric Exam Psychiatric exam: Normal Affect, Normal Mood - Skin Skin Exam: Dry, Intact, Normal Color, Warm Results - Vital Signs Recent Vital Signs: Last Vital Signs Temp 98.2 F 07/16/16 11:30 Pulse 90 07/16/16 18:05 Resp 20 07/16/16 16:31 BP 121/88 07/16/16 18:05 Pulse Ox 99 07/16/16 16:31 - Labs Result Diagrams: 07/16/16 09:02 07/16/16 09:02 Labs: Laboratory Results - last 24 hr 07/16/16 07/16/16 11:10 14:14 Troponin I 1.91 H* D TSH 3rd Generation 1.35 - EKG Data Interpretation: Acute Ischemia EKG comments: ST Elevation Inferior Leads. - Imaging and Cardiology Chest x-ray Status: Report reviewed by me Additional comment: No Acute cardiopulmonary finding Assessment & Plan (1) Acute myocardial infarction Assessment and Plan: S/p Cardiac Catheterization and angioplasty with Stent in LCX 1st OM Oxygen Continue Tridil drip Plavix/ASA/Lopressor/Altase Morphine PRN Status: Acute Priority: High
[2016-07-17] MEDS: Morphine 2 mg/ml ISec IVP PRN ×3 (01:00→20:53)
[2016-07-17 05:56] LABS: ADD MANUAL DIFF? NO
[2016-07-17 06:02] LABS: BASO # 0.03 [, K/mm3] (0.0-2.0); BASO % 0.2 % (0.0-3.0); EOS # 0.1 (0.0-0.7); EOS % 0.3 % (1.5-5.0); GRAN # 14.06 (1.4-6.5); GRAN % 79.1 % (50.0-68.0); HEMATOCRIT 35.5 % (42.0-52.0); LYMPH # 2.4 (1.2-3.4); LYMPH % 13.3 % (22.0-35.0); MEAN CORPUSCULAR HEMOGLOBIN 33.6 pg (25.0-35.0); MEAN CORPUSCULAR HGB CONC 34.6 g/dl (31.0-37.0); MEAN PLATELET VOLUME 10.6 fl (7.0-11.0); MONO # 1.3 (0.1-0.6); MONO % 7.1 % (1.0-6.0); PLATELET COUNT 265 [, 10^3/uL] (120.0-450.0); RED CELL DISTRIBUTION WIDTH 13.5 % (11.5-14.5); WHITE BLOOD COUNT 17.8 [, 10^3/ul] (4.5-11.0)
[2016-07-17 06:48] LABS: BLOOD UREA NITROGEN 10 mg/dL (7-21); CALCIUM 8.8 mg/dL (8.4-10.5); CARBON DIOXIDE 29 mmol/L (21-33); CHLORIDE 103 mmol/L (98-107); CHOLESTEROL 118 mg/dL (130-200); GFR AFRICAN-AMERICAN > 60; GLUCOSE,RANDOM 103 mg/dL (70-110); POTASSIUM 3.9 mmol/L (3.6-5.0); SODIUM 139 mmol/L (132-148)
--- NOTE | 2016-07-17 08:03 | CP.PCM.PN ---
Subjective - Date & Time of Evaluation Date of Evaluation: 07/17/16 Time of Evaluation: 08:00 - Subjective Subjective: Continued CP in ICU. On IV NTG and got MS. Still pain across the chest. Cath report noted. S/P acute ILMI with PCI 2nd OM yesterday. Residual diag br. stenoses noted. V/S noted. RSR PE: Lungs: clear Cor.: S1S2 Abd.: soft Ext.: no edema Neuro.: alert I/O 2000/800 Labs noted: trop 26.6 yesterday. TC = 118, LDL= 61 ECG: RSR, mild ST elevations 2,3,F, V 5,6. Peaked T waves V2,3 Objective - Vital Signs/Intake and Output Vital Signs (last 24 hours): Temp Pulse Resp BP Pulse Ox 98.2 F 77 20 117/71 96 07/16/16 11:30 07/17/16 06:30 07/17/16 06:30 07/17/16 06:30 07/17/16 06:30 - Medications Medications: Current Medications Alprazolam (Xanax) 0.25 mg PO TID [facility] PRN Reason: Protocol Stop: 07/23/16 18:01 Last Admin: 07/16/16 18:05 Dose: 0.25 mg Aspirin (Aspirin) 325 mg PO DAILY [facility] Atorvastatin Calcium (Lipitor) 80 mg PO DIN [facility] Last Admin: 07/16/16 18:04 Dose: 80 mg Clopidogrel Bisulfate (Plavix) 75 mg PO DAILY [facility] Nitroglycerin/Dextrose (Nitroglycerin 50 Mg/250 Ml D5w) 250 mls @ 1.5 mls/hr IV .Q24H PRN; Protocol; 5 MCG/MIN PRN Reason: chest pain Last Admin: 07/16/16 12:00 Dose: 1.5 mls/hr Metoprolol Tartrate (Lopressor) 25 mg PO Q6H [facility] Last Admin: 07/17/16 05:57 Dose: 25 mg Morphine Sulfate (Morphine) 2 mg IVP Q2H PRN PRN Reason: Pain, moderate (4-7) Last Admin: 07/17/16 01:00 Dose: 2 mg Oxcarbazepine (Trileptal) 300 mg PO BID [facility] PRN Reason: Protocol Last Admin: 07/16/16 18:04 Dose: 300 mg Ramipril (Altace) 5 mg PO DAILY [facility] - Labs Labs: 07/17/16 05:50 07/17/16 06:36 PT 10.0 Seconds (9.9-11.8) 07/16/16 09:02 INR 0.93 (0.93-1.08) 07/16/16 09:02 APTT 23.5 Seconds (23.7-30.8) L 07/16/16 09:02 Assessment and Plan - Assessment and Plan (Free Text) Plan: Assessment. Continue CP s/p acute ILMI with PCI 2nd OM Residual large diag br. stenoses Smoker Discogenic disease/back surgery Plan: NPO Cardiac cath later this AM. Case D/W Dr. Dejesus. Additional recs to follow.
--- NOTE | 2016-07-17 08:54 | CP.PCM.PN ---
Subjective - Date & Time of Evaluation Date of Evaluation: 07/17/16 Time of Evaluation: 07:15 - Subjective Subjective: Seen and examined at the bed side. S/P Cardiac Cath and has been complaining chest pain despite Nitroglycerin Infusion overnight. Patient is also on Plavix, BB, Altace, Statin,and Oxygen. Chest pain 8/10 on and off despite iv Morphine with radiation to the left shoulder and Jaw. Repeat troponin is high 26.5. The Privacy Manager reevaluated the patient and going for repeat Cardiac catheterization. Denies sob. Objective - Vital Signs/Intake and Output Vital Signs (last 24 hours): Temp Pulse Resp BP Pulse Ox 98.2 F 77 20 117/71 96 07/16/16 11:30 07/17/16 06:30 07/17/16 06:30 07/17/16 06:30 07/17/16 06:30 - Medications Medications: Current Medications Alprazolam (Xanax) 0.25 mg PO TID [facility] PRN Reason: Protocol Stop: 07/23/16 18:01 Last Admin: 07/16/16 18:05 Dose: 0.25 mg Aspirin (Aspirin) 325 mg PO DAILY [facility] Atorvastatin Calcium (Lipitor) 80 mg PO DIN [facility] Last Admin: 07/16/16 18:04 Dose: 80 mg Clopidogrel Bisulfate (Plavix) 75 mg PO DAILY [facility] Nitroglycerin/Dextrose (Nitroglycerin 50 Mg/250 Ml D5w) 250 mls @ 1.5 mls/hr IV .Q24H PRN; Protocol; 5 MCG/MIN PRN Reason: chest pain Last Admin: 07/16/16 12:00 Dose: 1.5 mls/hr Metoprolol Tartrate (Lopressor) 25 mg PO Q6H [facility] Last Admin: 07/17/16 05:57 Dose: 25 mg Morphine Sulfate (Morphine) 2 mg IVP Q2H PRN PRN Reason: Pain, moderate (4-7) Last Admin: 07/17/16 01:00 Dose: 2 mg Oxcarbazepine (Trileptal) 300 mg PO BID [facility] PRN Reason: Protocol Last Admin: 07/16/16 18:04 Dose: 300 mg Ramipril (Altace) 5 mg PO DAILY [facility] - Labs Labs: 07/17/16 05:50 07/17/16 06:36 PT 10.0 Seconds (9.9-11.8) 07/16/16 09:02 INR 0.93 (0.93-1.08) 07/16/16 09:02 APTT 23.5 Seconds (23.7-30.8) L 07/16/16 09:02 - Constitutional Appears: Non-toxic, In Acute Distress - Head Exam Head Exam: ATRAUMATIC, NORMAL INSPECTION, NORMOCEPHALIC - Eye Exam Eye Exam: EOMI, Normal appearance, PERRL Pupil Exam: NORMAL ACCOMODATION, PERRL - ENT Exam ENT Exam: Mucous Membranes Moist, Normal Exam - Neck Exam Neck Exam: Full ROM, Normal Inspection. absent: Lymphadenopathy - Respiratory Exam Respiratory Exam: Clear to Ausculation Bilateral, NORMAL BREATHING PATTERN - Cardiovascular Exam Cardiovascular Exam: REGULAR RHYTHM, +S1, +S2. absent: Murmur - GI/Abdominal Exam GI & Abdominal Exam: Soft, Normal Bowel Sounds. absent: Tenderness - Extremities Exam Extremities Exam: Full ROM, Normal Capillary Refill, Normal Inspection. absent : Joint Swelling, Pedal Edema - Back Exam Back Exam: NORMAL INSPECTION - Neurological Exam Neurological Exam: Alert, Awake, CN II-XII Intact, Normal Gait, Oriented x3 - Psychiatric Exam Psychiatric exam: Normal Affect, Normal Mood - Skin Skin Exam: Dry, Intact, Normal Color, Warm Assessment and Plan (1) Acute myocardial infarction Assessment & Plan: R/O Coronary Spasm Vs Thrombosis Vs Dissection EKG stat O2 Via NC Add ASA Morphine IV PRN Continue Current Care including Tridil drip Will Repeat Trop Status: Acute
[2016-07-17] MEDS ORDERED: Lidocaine 2% Inj (20ml) ONE (09:28)
[2016-07-17] MEDS ORDERED: Iodixanol 320 MG/ML 200 ML BOTTLE IV ONE (09:29)
[2016-07-17] MEDS ORDERED: Midazolam 2 MG/2 ML VIAL ONE ×2 (09:29→10:59)
[2016-07-17] MEDS ORDERED: Iodixanol 320 MG/ML 100 ML BOTTLE IV ONE (09:29)
[2016-07-17] MEDS ORDERED: Iohexol 350mgl/ml 50 ML ONE (09:29)
[2016-07-17] MEDS ORDERED: Metoprolol Succinate 50 mg XL Tab PO SCH (10:00)
--- NOTE | 2016-07-17 10:36 | CARD ---
APPROVED REPORT EKG Measurement Heart [id number] 164P-6 [id number] <Conclusion> Normal sinus rhythm Left axis deviation Evolving ILMI T waves are peaked V2,3
[2016-07-17] MEDS ORDERED: Eptifibatide 0.75 mg/ml 100 ML IV ONE (10:53)
[2016-07-17] MEDS ORDERED: Eptifibatide 20 mg/10mL Inj IVP ONE (10:54)
[2016-07-17] MEDS ORDERED: Sodium Chloride 0.9% 1,000 ML IV SCH (11:30)
[2016-07-17 11:57] LABS: HEMATOCRIT 37.3 % (42.0-52.0); MEAN CELL VOLUME 97.1 fL (80.0-105.0); MEAN CORPUSCULAR HEMOGLOBIN 33.3 pg (25.0-35.0); MEAN CORPUSCULAR HGB CONC 34.3 g/dl (31.0-37.0); MEAN PLATELET VOLUME 10.7 fl (7.0-11.0); RED CELL DISTRIBUTION WIDTH 13.7 % (11.5-14.5); WHITE BLOOD COUNT 17.6 [, 10^3/ul] (4.5-11.0)
--- NOTE | 2016-07-17 11:57 | CARDCATH ---
PROCEDURE DATE: 07/17/2016 CARDIAC CATHETERIZATION AND CORONARY INTERVENTION REPORT HISTORY: This is a 41-year-old man who underwent emergency PCI of his left circumflex artery yesterd ay in the setting of an acute anterolateral wall myocardial infarction. He had recurrent pain overni ght and again early this morning. His EKG improved. However, his troponin was elevated. Repeat car diac catheterization was advised given his symptoms. INDICATION: As above. FINDINGS: The aortic pressure was 130/76, and left ventricular pressure was not measured. CORONARY ANATOMY: 1. The left main stem was normal. 2. The left anterior descending artery had mild irregularities present, and an 80% stenosis of a fir st diagonal branch, which was unchanged. 3. The left circumflex artery revealed occlusion of the previously placed stent in a large obtuse ma rginal branch. 4. The right coronary artery was not injected. CORONARY INTERVENTION: Given the above findings, attempted PCI of the occluded obtuse marginal was t hen performed. A 3.5 EBU guide catheter was utilized, and 4000 units of heparin was administered. T he ACT was greater than 200 seconds during the procedure. A Ivins wire was advanced, and attempts w ere made to cross through the stented segment. However, this was unsuccessful. A 2.5 mm x 12 mm bal loon was then taken and advanced over the wire. Multiple attempts were made to advance the wire dist ally. However, this was unsuccessful. The system was removed, and alternative wires were attempted. A Choice PT wire, as well as a [place] wire, was utilized. Ultimately, a trace PT extra support wire was delivered distally through a 2.5 mm balloon. However, the 2.5 mm balloon could not be full y advanced through the stented segment. An injection was made through the balloon confirming that th e distal vessel had been accessed. Subsequently, the trace PT extra support wire was again reintrodu mariia, and a 1.5 mm x 20 mm balloon taken and advanced distally beyond the stent. Multiple inflations were performed distally and within the stented segment. The 1.5 mm balloon was then removed, and a 2 .5 mm balloon advanced distally. Low pressure inflations were performed beyond the stent and through out the stented segment. Subsequently, there appeared to be a hazy region in the proximal area of th e stent, and a 3.0 mm x 15 mm Resolute drug-eluting stent was deployed overlapping the first stent. There was 0% residual stenosis at that site. Followup injection showed evidence of a hazy region and possible dissection at the distal edge of the original stent. For this, a 2.75 mm x 12 mm Resolute drug-eluting stent was taken and advanced to the site and inflated to 12 atmospheres. Multiple high pressure inflations were performed within the stented segment. There was no evidence of residual les ion following intervention. IV Integrilin was administered as well. VLAD grade III flow was present at the end of the procedure. However, there did appear to be some vessel cutoff of sub-branches in the distal segment of the vessel. CONCLUSION: Acute thrombosis of previously placed stent and obtuse marginal branch, successful recan alization and PCI utilizing 2 additional stents and multiple balloon inflations. RECOMMENDATIONS: IV Integrilin will be continued for 18 hours. Aspirin and Plavix therapy will be c ontinued as well. A platelet reactivity test was performed revealing adequate inhibition with Plavix use. Continued risk factor control and smoking abstinence will be recommended. Hector Dejesus MD cc: [id number] TT: 07/17/2016 11:57:11 jn
--- NOTE | 2016-07-17 12:28 | PN ---
DATE: 07/17/2016 The patient is seen and examined at bedside. He is a little bit somnolent, however, easily arousable, alert and oriented x 3. He is status post repeated PCI with 2 stents in OM-1. PHYSICAL EXAMINATION: At present time: VITAL SIGNS: Heart rate 85, oxygen saturation 95%, respiratory rate ____, blood pressure 117/68. HEAD AND NECK: Atraumatic. LUNGS: Clear to auscultation bilaterally. HEART: Regular rate and rhythm. S1, S2 normal. ABDOMEN: Soft, nontender, nondistended. MUSCULOSKELETAL: No C/C/E. NEUROLOGIC: The patient moves all extremities spontaneously. SKIN: Moist. PSYCHIATRIC: The patient is alert and oriented x 3. LABORATORY DATA: WBC 17.8, hemoglobin 12.3, platelet count 265. Sodium 139, potassium 3.9, chloride 103, carbon dioxide 29, BUN 10, creatinine 0.7, glucose 103. MEDICATIONS: Ramipril, aspirin, Integrilin, Lipitor, metoprolol, morphine p.r.n., nitroglycerin drip, Plavix, normal saline, Trileptal, Xanax. ASSESSMENT AND PLAN: This is a 41-year-old gentleman who presented with ST elevated myocardial infarction, status post percutaneous coronary intervention yesterday. He continued to have chest pain and was started on nitroglycerin and morphine p.r.n.. However, chest pain persisted. He was taken back to coronary lab where another percutaneous coronary intervention with placement of 2 drug-eluting stents was done, and the patient was transferred back to ICU for further management and monitoring. PRU was more than 100. Chest pain substantially improved. I discussed antiplatelet therapy with Dr. Dejesus, and decision was made to proceed with Effient rather than Plavix at present time. We will continue to target euvolemia, euglycemia, normothermia, and oxygen saturation more than 90%. We will continue with dual antiplatelet therapy+integrillin, statins, beta-blockers, nitroglycerin drip. ccm time 40 min Giancarlo Harrell MD cc: [id number] TT: 07/17/2016 12:27:34 Confirmation # [id number] Dictation # [id number] jn SENTHIL
[2016-07-17] MEDS: Eptifibatide 0.75 mg/ml 100 ML IV SCH ×2 (13:08→18:06)
--- NOTE | 2016-07-17 17:06 | CARD ---
APPROVED REPORT EKG Measurement Heart [id number] [id number] <Conclusion> Normal sinus rhythm Inferior-posterior infarct, evolving LVH by voltage. LAD
[2016-07-17] MEDS: Nitroglycerin 50mg in D5W 250 ML IV PRN (18:10)
[2016-07-17] MEDS ORDERED: Nitroglycerin 50mg in D5W 250 ML IV PRN (18:10)
[2016-07-17] MEDS ORDERED: Menthol/Phenol (Cepastat) Lozenge MT PRN (18:35)
[2016-07-17] MEDS ORDERED: Benzocaine/Menthol (Cepacol) Lozenge MT PRN (18:48)
[2016-07-17 19:37] LABS: ADD MANUAL DIFF? NO
[2016-07-17 19:41] LABS: BASO # 0.01 [, K/mm3] (0.0-2.0); BASO % 0.1 % (0.0-3.0); GRAN # 13.27 (1.4-6.5); HEMATOCRIT 31.8 % (42.0-52.0); LYMPH # 1.5 (1.2-3.4); LYMPH % 9.2 % (22.0-35.0); MEAN CELL VOLUME 96.7 fL (80.0-105.0); MEAN CORPUSCULAR HEMOGLOBIN 33.1 pg (25.0-35.0); MEAN CORPUSCULAR HGB CONC 34.3 g/dl (31.0-37.0); MONO # 1.6 (0.1-0.6); MONO % 9.7 % (1.0-6.0); PLATELET COUNT 245 [, 10^3/uL] (120.0-450.0); RED CELL DISTRIBUTION WIDTH 13.4 % (11.5-14.5); WHITE BLOOD COUNT 16.4 [, 10^3/ul] (4.5-11.0)
[2016-07-17 19:52] LABS: INR 1.01 (0.93-1.08); PARTIAL THROMBOPLASTIN TIME 27.5 Seconds (23.7-30.8)
[2016-07-17 19:53] LABS: ALB/GLOB RATIO 1.2 (1.1-1.8); ALKALINE PHOSPHATASE 47 U/L (38-133); ALT/SGPT 88 U/L (7-56); AST/SGOT 524 U/L (15-59); BILIRUBIN,TOTAL 0.4 mg/dL (0.2-1.3); BLOOD UREA NITROGEN 11 mg/dL (7-21); CALCIUM 8.4 mg/dL (8.4-10.5); CARBON DIOXIDE 29 mmol/L (21-33); CHLORIDE 100 mmol/L (98-107); GFR AFRICAN-AMERICAN > 60; GLUCOSE,RANDOM 134 mg/dL (70-110); MAGNESIUM 1.8 mg/dL (1.7-2.2); PHOSPHOROUS 3.3 mg/dL (2.5-4.5); POTASSIUM 3.5 mmol/L (3.6-5.0); SODIUM 134 mmol/L (132-148); TOTAL PROTEIN 5.9 g/dL (5.8-8.3)
[2016-07-17] MEDS ORDERED: Nitroglycerin 0.2 mg/hr Top Patch TD STA (20:44)
[2016-07-17] MEDS ORDERED: Famotidine 20mg/50ml 50 ML IVPB STA (20:46)
--- NOTE | 2016-07-17 20:53 | CP.PCM.PCO ---
Physician Communication Note - Physician Communication Note Physician Communication Note: Pt c/o CP; Dr. Hutchison didn't want to see stat EKG but said it was normal
[2016-07-18] MEDS: Eptifibatide 0.75 mg/ml 100 ML IV SCH (02:00)
[2016-07-18 02:39] LABS: TROPONIN I 70.4 ng/mL
[2016-07-18 07:49] LABS: ADD MANUAL DIFF? NO
[2016-07-18 07:57] LABS: BASO # 0.02 [, K/mm3] (0.0-2.0); BASO % 0.1 % (0.0-3.0); GRAN % 76.9 % (50.0-68.0); HEMATOCRIT 31.1 % (42.0-52.0); MEAN CELL VOLUME 95.4 fL (80.0-105.0); MEAN CORPUSCULAR HEMOGLOBIN 33.1 pg (25.0-35.0); MEAN CORPUSCULAR HGB CONC 34.7 g/dl (31.0-37.0); MEAN PLATELET VOLUME 10.7 fl (7.0-11.0); MONO # 2.2 (0.1-0.6); PLATELET COUNT 229 [, 10^3/uL] (120.0-450.0); RED CELL DISTRIBUTION WIDTH 13.2 % (11.5-14.5); WHITE BLOOD COUNT 18.5 [, 10^3/ul] (4.5-11.0)
--- NOTE | 2016-07-18 08:00 | CP.PCM.PN ---
Subjective - Date & Time of Evaluation Date of Evaluation: 07/18/16 Time of Evaluation: 08:00 - Subjective Subjective: S/P re-cath yesterday>occluded, thrombosed stent in OM>opened with additional stents placed>see report. Case d/w Dr. Dejesus. Today still left sided chest pain on and off> on IV NTG and MS PRN. Got integrillin. On Effient now. V/S noted. RSR PE: Lungs: clear Cor.: S1S2 Abd.: soft Ext.: no edema Neuro.: alert I/O 2650/700 Labs 07/17 noted. trops 105 > 70. Today's labs pending. ECG 07/17: RSR, evolving IMI, mild ST elevations 2,3,F, V 5,6. Peaked T waves V2, 3 Echo: prelim: Nl. LV fx. Objective - Vital Signs/Intake and Output Vital Signs (last 24 hours): Temp Pulse Resp BP Pulse Ox 98.2 F 103 H 35 H 117/61 91 L 07/18/16 04:00 07/18/16 06:00 07/18/16 03:00 07/18/16 06:00 07/18/16 03:00 Intake and Output: 07/18/16 07/18/16 06:59 18:59 Intake Total 1150 Output Total 700 Balance 450 - Medications Medications: Current Medications Alprazolam (Xanax) 0.25 mg PO TID [facility] PRN Reason: Protocol Stop: 07/23/16 18:01 Last Admin: 07/17/16 18:11 Dose: Not Given Aspirin (Aspirin) 325 mg PO DAILY [facility] Last Admin: 07/17/16 13:20 Dose: 325 mg Atorvastatin Calcium (Lipitor) 80 mg PO DIN [facility] Last Admin: 07/17/16 18:08 Dose: 80 mg Benzocaine/Menthol (Cepacol Sore Throat) 1 meera MT Q4H PRN PRN Reason: Sore Throat Last Admin: 07/17/16 19:14 Dose: 1 meera Nitroglycerin/Dextrose (Nitroglycerin 50 Mg/250 Ml D5w) 250 mls @ 1.5 mls/hr IV .Q24H PRN; Protocol; 5 MCG/MIN PRN Reason: Other Metoprolol Tartrate (Lopressor) 25 mg PO Q6H [facility] Last Admin: 07/18/16 06:00 Dose: 25 mg Morphine Sulfate (Morphine) 2 mg IVP Q2H PRN PRN Reason: Pain, moderate (4-7) Last Admin: 07/17/16 20:53 Dose: 2 mg Oxcarbazepine (Trileptal) 300 mg PO BID ELOISA PRN Reason: Protocol Last Admin: 07/17/16 18:08 Dose: 300 mg Prasugrel (Effient) 10 mg PO DAILY [facility] Prasugrel (Effient) 60 mg PO ONCE ONE Stop: 07/18/16 10:01 Ramipril (Altace) 5 mg PO DAILY [facility] Last Admin: 07/17/16 13:20 Dose: 5 mg - Labs Labs: 07/17/16 19:36 07/17/16 19:36 PT 10.9 Seconds (9.9-11.8) 07/17/16 19:36 INR 1.01 (0.93-1.08) 07/17/16 19:36 APTT 27.5 Seconds (23.7-30.8) 07/17/16 19:36 Assessment and Plan - Assessment and Plan (Free Text) Plan: Assessment. CP s/p MO with PCIs Continue CP>re-cath 07/17/16: thrombosed OM stent> reopened with 2 additional Hector s/p acute ILMI with PCI 2nd OM 07/16/16 Residual large diag br. stenosis Smoker Discogenic disease/back surgery Plan: Continue in CCU with IV NTG, IV MS Await AM labs, trops, ECG Check echo OOB to chair as tolerated Monitor: labs, I/O, sats., trops., ECG. Will follow.
[2016-07-18 08:12] LABS: BLOOD UREA NITROGEN 10 mg/dL (7-21); CALCIUM 8.4 mg/dL (8.4-10.5); CARBON DIOXIDE 31 mmol/L (21-33); CHLORIDE 101 mmol/L (98-107); GFR AFRICAN-AMERICAN > 60; GLUCOSE,RANDOM 120 mg/dL (70-110); POTASSIUM 3.5 mmol/L (3.6-5.0); SODIUM 136 mmol/L (132-148)
[2016-07-18] MEDS ORDERED: Potassium Chloride 20 mEq ER Tab PO SCH (09:00)
[2016-07-18 10:03] LABS: MAGNESIUM 1.7 mg/dL (1.7-2.2); PHOSPHOROUS 3.5 mg/dL (2.5-4.5)
[2016-07-18] MEDS: Morphine 2 mg/ml ISec IVP PRN ×3 (10:36→19:17)
--- NOTE | 2016-07-18 11:48 | CARD ---
APPROVED REPORT EXAM: Two-dimensional and M-mode echocardiogram with Doppler and color Doppler. Other Information Quality : GoodRhythm : INDICATION Acute UT, s/p PCI 2D DIMENSIONS Left Atrium (2D)4.0 (1.6-4.0cm)IVSd1.1 (0.7-1.1cm) LVDd4.8 (3.9-5.9cm)PWd1.2 (0.7-1.1cm) LVDs2.9 (2.5-4.0cm)FS (%) 40.3 % LVEF (%)70.0 (>50%) M-Mode DIMENSIONS Aortic Root3.10 (2.2-3.7cm)Aortic Cusp Exc.2.10 (1.5-2.0cm) Aortic Valve AoV Peak Yiprzlgm810.0cm/s Mitral Valve MV E Xjyvnykr592.0cm/sMV A Rnyhibjh27.5cm/sE/A ratio1.2 TDI E/Lateral E'0.0E/Medial E'0.0 Tricuspid Valve TR Peak [id number]/sRAP [id number] Peak Gr.6mmHg [id number] LEFT VENTRICLE The left ventricle is normal size. There is normal left ventricular wall thickness. The left ventricular function is normal. The left ventricular ejection fraction is within the normal range. There is normal LV segmental wall motion. RIGHT VENTRICLE The right ventricle is normal size. ATRIA The left atrium size is normal. The right atrium size is normal. The interatrial septum is intact with no evidence for an atrial septal defect. AORTIC VALVE The aortic valve is normal in structure. MITRAL VALVE The mitral valve is normal in structure. TRICUSPID VALVE The tricuspid valve is normal in structure. There is trace tricuspid regurgitation. PULMONIC VALVE The pulmonic valve is not well visualized. GREAT VESSELS The aortic root is normal in size. PERICARDIAL EFFUSION There is no pericardial effusion. <Conclusion> The left ventricle is normal size. There is normal left ventricular wall thickness. The left ventricular function is normal.
--- NOTE | 2016-07-18 12:18 | CARD ---
APPROVED REPORT EKG Measurement Heart [id number] <Conclusion> Normal sinus rhythm Left axis deviation ILMI, evolving LVH by voltage No change
--- NOTE | 2016-07-18 12:29 | CP.CCUPN ---
<Janell Garcia - Last Filed: 07/18/16 13:24> CCU Subjective - Physician Review Events Since Last Encounter (Free Text): 07/18/16 08:17 Patient seen and examined bedside. Patient still complaining of substernal CP radiating to neck and left arm. Patient was seen by Dr. Hutchison overnight, troponins trending down, stated to continue monitoring clinically. 07/18/16 13:00 Patient complains of persistent CP, diaphoresis, SOB, headache. Critical Care Time Spent (in minutes): 35 CCU Objective - Vital Signs / Intake & Output Intake and Output (Last 8hrs): Intake & Output 07/17/16 07/18/16 07/18/16 22:59 06:59 14:59 Intake Total 1500 1150 Output Total 700 Balance 1500 450 Intake: IV 1000 650 IVF 1000 650 Oral 500 500 Output: Urine 700 Urine, Voided 700 Other: Voiding Method Urinal # Voids Urine, Voided 3 # Bowel Movements 0 - Physical Exam Head: Positive for: Atraumatic, Normocephalic Pupils: Positive for: PERRL Extroacular Muscles: Positive for: EOMI Conjunctiva: Positive for: Normal Mouth: Positive for: Moist Mucous Membranes Nose (External): Positive for: Atraumatic Nose (Internal): Positive for: Normal Inspection Neck: Positive for: Normal Range of Motion Respiratory/Chest: Positive for: Clear to Auscultation, Respiratory Distress Cardiovascular: Positive for: Tachycardic Abdomen: Positive for: Normal Bowel Sounds. Negative for: Tenderness, Distention, Peritoneal Signs Upper Extremity: Positive for: Normal Inspection Lower Extremity: Positive for: Normal Inspection Neurological: Positive for: GCS=15 Skin: Positive for: Warm, Diaphoretic Psychiatric: Positive for: Alert, Oriented x 3 - Medications Active Medications: Active Medications Generic Name Dose Route Start Last Admin Trade Name Freq PRN Reason Stop Dose Admin Alprazolam 0.25 mg 07/16/16 18:00 07/18/16 10:35 Xanax PO 07/23/16 18:01 0.25 mg TID ELOISA Administration Protocol Aspirin 325 mg 07/17/16 10:00 07/18/16 10:35 Aspirin PO 325 mg DAILY ELOISA Administration Atorvastatin Calcium 80 mg 07/16/16 17:00 07/17/16 18:08 Lipitor PO 80 mg DIN ELOISA Administration Benzocaine/Menthol 1 meera 07/17/16 18:48 07/17/16 19:14 Cepacol Sore Throat MT 1 meera Q4H PRN Administration Sore Throat Famotidine 40 mg 07/18/16 22:00 Pepcid PO HS ELOISA Heparin Sodium (Porcine) 5,000 units 07/18/16 10:00 07/18/16 10:37 Heparin SC 5,000 units Q12 ELOISA Administration Protocol Nitroglycerin/Dextrose 250 mls @ 1.5 mls/hr 07/17/16 18:10 Nitroglycerin 50 Mg/250 Ml D5w IV .Q24H PRN Other Protocol 5 MCG/MIN Metoprolol Tartrate 25 mg 07/16/16 12:15 07/18/16 06:00 Lopressor PO 25 mg Q6H ELOISA Administration Morphine Sulfate 2 mg 07/16/16 11:51 07/18/16 10:36 Morphine IVP 2 mg Q2H PRN Administration Pain, moderate (4-7) Oxcarbazepine 300 mg 07/16/16 18:00 07/18/16 10:35 Trileptal PO 300 mg BID [facility] Administration Protocol Prasugrel 10 mg 07/19/16 10:00 Effient PO DAILY [facility] Ramipril 5 mg 07/16/16 12:02 07/17/16 13:20 Altace PO 5 mg DAILY [facility] Administration - Patient Studies Lab Studies: Lab Studies 07/18/16 07/18/16 07/18/16 Range/Units 07:45 07:32 01:35 WBC 18.5 H (4.5-11.0) 10^3/ul RBC 3.26 L (3.5-6.1) 10^6/uL Hgb 10.8 L (14.0-18.0) gm/dL Hct 31.1 L (42.0-52.0) % MCV 95.4 (80.0-105.0) fL MCH 33.1 (25.0-35.0) pg MCHC 34.7 (31.0-37.0) g/dl RDW 13.2 (11.5-14.5) % Plt Count 229 (120.0-450.0) 10^3/uL MPV 10.7 (7.0-11.0) fl Gran % 76.9 H (50.0-68.0) % Lymph % (Auto) 11.0 L (22.0-35.0) % Hopkins % (Auto) 12.0 H (1.0-6.0) % Eos % (Auto) 0.0 L (1.5-5.0) % Baso % (Auto) 0.1 (0.0-3.0) % Gran # 14.20 H (1.4-6.5) Lymph # 2.0 (1.2-3.4) Hopkins # 2.2 H (0.1-0.6) Eos # 0.0 (0.0-0.7) Baso # 0.02 (0.0-2.0) K/mm3 PT (9.9-11.8) Seconds INR (0.93-1.08) APTT (23.7-30.8) Seconds Sodium 136 (132-148) mmol/L Potassium 3.5 L (3.6-5.0) mmol/L Chloride 101 (98-107) mmol/L Carbon Dioxide 31 (21-33) mmol/L Anion Gap 8 L (10-20) BUN 10 (7-21) mg/dL Creatinine 0.7 (0.5-1.4) mg/dL Est GFR ( Amer) > 60 Est GFR (Non-Af Amer) > 60 Random Glucose 120 H (70-110) mg/dL Hemoglobin A1c (4.2-6.5) % Calcium 8.4 (8.4-10.5) mg/dL Phosphorus 3.5 (2.5-4.5) mg/dL Magnesium 1.7 (1.7-2.2) mg/dL Total Bilirubin (0.2-1.3) mg/dL AST (15-59) U/L ALT (7-56) U/L Alkaline Phosphatase (38-133) U/L Lactate Dehydrogenase 2717 H 2811 H (333-699) U/L Total Creatine Kinase 1534 H 2523 H (35-230) U/L CK-MB (CK-2) 33.4 H 58.4 H (0.0-3.6) ng/mL CK-MB (CK-2) % 2.2 L 2.3 L (2.5-3.0) % Troponin I 49.90 H* D 70.40 H* D ng/mL Total Protein (5.8-8.3) g/dL Albumin (3.0-4.8) g/dL Globulin gm/dL Albumin/Globulin Ratio (1.1-1.8) 07/17/16 07/17/16 Range/Units 19:36 05:50 WBC 16.4 H (4.5-11.0) 10^3/ul RBC 3.29 L (3.5-6.1) 10^6/uL Hgb 10.9 L (14.0-18.0) gm/dL Hct 31.8 L (42.0-52.0) % MCV 96.7 (80.0-105.0) fL MCH 33.1 (25.0-35.0) pg MCHC 34.3 (31.0-37.0) g/dl RDW 13.4 (11.5-14.5) % Plt Count 245 (120.0-450.0) 10^3/uL MPV 10.0 (7.0-11.0) fl Gran % 81.0 H (50.0-68.0) % Lymph % (Auto) 9.2 L (22.0-35.0) % Hopkins % (Auto) 9.7 H (1.0-6.0) % Eos % (Auto) 0.0 L (1.5-5.0) % Baso % (Auto) 0.1 (0.0-3.0) % Gran # 13.27 H (1.4-6.5) Lymph # 1.5 (1.2-3.4) Hopkins # 1.6 H (0.1-0.6) Eos # 0.0 (0.0-0.7) Baso # 0.01 (0.0-2.0) K/mm3 PT 10.9 (9.9-11.8) Seconds INR 1.01 (0.93-1.08) APTT 27.5 (23.7-30.8) Seconds Sodium 134 (132-148) mmol/L Potassium 3.5 L (3.6-5.0) mmol/L Chloride 100 (98-107) mmol/L Carbon Dioxide 29 (21-33) mmol/L Anion Gap 9 L (10-20) BUN 11 (7-21) mg/dL Creatinine 0.7 (0.5-1.4) mg/dL Est GFR ( Amer) > 60 Est GFR (Non-Af Amer) > 60 Random Glucose 134 H (70-110) mg/dL Hemoglobin A1c 6.0 (4.2-6.5) % Calcium 8.4 (8.4-10.5) mg/dL Phosphorus 3.3 (2.5-4.5) mg/dL Magnesium 1.8 (1.7-2.2) mg/dL Total Bilirubin 0.4 (0.2-1.3) mg/dL AST 524 H (15-59) U/L ALT 88 H (7-56) U/L Alkaline Phosphatase 47 (38-133) U/L Lactate Dehydrogenase 2834 H (333-699) U/L Total Creatine Kinase 3897 H (35-230) U/L CK-MB (CK-2) 125.0 H (0.0-3.6) ng/mL CK-MB (CK-2) % 3.2 H (2.5-3.0) % Troponin I 105.00 H* D ng/mL Total Protein 5.9 (5.8-8.3) g/dL Albumin 3.2 (3.0-4.8) g/dL Globulin 2.6 gm/dL Albumin/Globulin Ratio 1.2 (1.1-1.8) Laboratory Results - last 24 hr 07/17/16 07/17/16 07/18/16 05:50 19:36 01:35 WBC 16.4 H RBC 3.29 L Hgb 10.9 L Hct 31.8 L MCV 96.7 MCH 33.1 MCHC 34.3 RDW 13.4 Plt Count 245 MPV 10.0 Gran % 81.0 H Lymph % (Auto) 9.2 L Hopkins % (Auto) 9.7 H Eos % (Auto) 0.0 L Baso % (Auto) 0.1 Gran # 13.27 H Lymph # 1.5 Hopkins # 1.6 H Eos # 0.0 Baso # 0.01 PT 10.9 INR 1.01 APTT 27.5 Sodium 134 Potassium 3.5 L Chloride 100 Carbon Dioxide 29 Anion Gap 9 L BUN 11 Creatinine 0.7 Est GFR ( Amer) > 60 Est GFR (Non-Af Amer) > 60 Random Glucose 134 H Hemoglobin A1c 6.0 Calcium 8.4 Phosphorus 3.3 Magnesium 1.8 Total Bilirubin 0.4 AST 524 H ALT 88 H Alkaline Phosphatase 47 Lactate Dehydrogenase 2834 H 2811 H Total Creatine Kinase 3897 H 2523 H CK-MB (CK-2) 125.0 H 58.4 H CK-MB (CK-2) % 3.2 H 2.3 L Troponin I 105.00 H* D 70.40 H* D Total Protein 5.9 Albumin 3.2 Globulin 2.6 Albumin/Globulin Ratio 1.2 07/18/16 07/18/16 07:32 07:45 WBC 18.5 H RBC 3.26 L Hgb 10.8 L Hct 31.1 L MCV 95.4 MCH 33.1 MCHC 34.7 RDW 13.2 Plt Count 229 MPV 10.7 Gran % 76.9 H Lymph % (Auto) 11.0 L Hopkins % (Auto) 12.0 H Eos % (Auto) 0.0 L Baso % (Auto) 0.1 Gran # 14.20 H Lymph # 2.0 Hopkins # 2.2 H Eos # 0.0 Baso # 0.02 PT INR APTT Sodium 136 Potassium 3.5 L Chloride 101 Carbon Dioxide 31 Anion Gap 8 L BUN 10 Creatinine 0.7 Est GFR ( Amer) > 60 Est GFR (Non-Af Amer) > 60 Random Glucose 120 H Hemoglobin A1c Calcium 8.4 Phosphorus 3.5 Magnesium 1.7 Total Bilirubin AST ALT Alkaline Phosphatase Lactate Dehydrogenase 2717 H Total Creatine Kinase 1534 H CK-MB (CK-2) 33.4 H CK-MB (CK-2) % 2.2 L Troponin I 49.90 H* D Total Protein Albumin Globulin Albumin/Globulin Ratio EKG/Cardiology Studies: Cardiology / EKG Studies 07/17/16 11:17 ELECTROCARDIOGRAM Urgent Comment: 12 lead EKG upon arrival in unit Reason For Exam: post ptca 07/17/16 19:08 EKG [ELECTROCARDIOGRAM] Stat Comment: Reason For Exam: Pressure chest pain 07/18/16 08:53 EKG [ELECTROCARDIOGRAM] Stat Comment: Reason For Exam: followup 07/19/16 06:00 ELECTROCARDIOGRAM Routine Comment: Reason For Exam: CP Review of Systems - Constitutional Constitutional: Sweats. absent: Fever - EENT Eyes: absent: Change in Vision Ears: absent: Dizziness - Cardiovascular Cardiovascular: Chest Pain, Dyspnea, Pain Radiating to Arm/Neck/Jaw, Lightheadedness - Respiratory Respiratory: Dyspnea, Dyspnea on Exertion, Pain on Inspiration - Gastrointestinal Gastrointestinal: Nausea. absent: Abdominal Pain, Vomiting - Genitourinary Genitourinary: absent: Dysuria - Integumentary Integumentary: absent: New Lesions - Neurological Neurological: Headaches (mild) Critical Care Progress Note - Ventilator Checklist PUD Prophalyxis: Yes - Nutrition Nutrition: Nutrition Category Date Time Status Heart Healthy Diet [DIET] Diets 07/16/16 Dinner Ordered Assessment/Plan - Assessment and Plan (Free Text) Assessment: 41 yo M w h/o HTN and tobacco abuse admitted to ICU with acute inferolateral STEMI now s/p cath x2 withe persistent CP Plan: Neuro: AAO x 3 CV: Mild tachycardia low 100s. EKG shows no changes. Troponin continues to trend down. Spoke with Dr. Dejesus, continue nitro drip, lipitor, lopressor, ramipril, ASA, effient. Morphine PRN CP Pulm: Will place on NRB, monitor resp function GI: GI ppx Endo: No acute issues Renal: Renal function stable. ID: Afebrile. WBC count up to 18.5. Will obtain blood and urine cx and r/o occult infection. Heme: Hb down to 10.8 from 15.1 at admission. No signs of bleeding. CT A/P ordered by primary team to r/o retroperitoneal hematoma-- will hold off until patient is clinically stable. FEN: Continue HHD Mild hypokalemia 3.5 - replaced. Borderline Magnesium 1.7. Mag ox 400 x2. Recheck labs in AM. DVT/GI ppx: Effient, Pepcid, HHD - Date & Time Date: 07/18/16 Time: 13:15 <Polo Mckeon - Last Filed: 07/18/16 14:14> CCU Objective - Vital Signs / Intake & Output Vital Signs (Last 4 hours): Vital Signs Pulse Resp BP Pulse Ox 07/18/16 13:34 109 H 105/69 07/18/16 12:00 108 H 41 H 105/69 100 07/18/16 11:00 108 H 38 H 118/65 91 L 07/18/16 10:35 110/67 Intake and Output (Last 8hrs): Intake & Output 07/17/16 07/18/16 07/18/16 22:59 06:59 14:59 Intake Total 1500 1150 Output Total 700 Balance 1500 450 Intake: IV 1000 650 IVF 1000 650 Oral 500 500 Output: Urine 700 Urine, Voided 700 Other: Voiding Method Urinal Urinal # Voids Urine, Voided 3 # Bowel Movements 0 - Medications Active Medications: Active Medications Generic Name Dose Route Start Last Admin Trade Name Freq PRN Reason Stop Dose Admin Alprazolam 0.25 mg 07/16/16 18:00 07/18/16 10:35 Xanax PO 07/23/16 18:01 0.25 mg TID [facility] Administration Protocol Aspirin 325 mg 07/17/16 10:00 07/18/16 10:35 Aspirin PO 325 mg DAILY ELOISA Administration Atorvastatin Calcium 80 mg 07/16/16 17:00 07/17/16 18:08 Lipitor PO 80 mg DIN ELOISA Administration Benzocaine/Menthol 1 meera 07/17/16 18:48 07/17/16 19:14 Cepacol Sore Throat MT 1 meera Q4H PRN Administration Sore Throat Famotidine 40 mg 07/18/16 22:00 Pepcid PO HS [facility] Nitroglycerin/Dextrose 250 mls @ 1.5 mls/hr 07/17/16 18:10 Nitroglycerin 50 Mg/250 Ml D5w IV .Q24H PRN Other Protocol 5 MCG/MIN Magnesium Oxide 400 mg 07/18/16 18:00 Mag-Ox PO 07/19/16 10:01 BID [facility] Metoprolol Tartrate 25 mg 07/16/16 12:15 07/18/16 13:34 Lopressor PO 25 mg Q6H ELOISA Administration Morphine Sulfate 2 mg 07/16/16 11:51 07/18/16 13:33 Morphine IVP 2 mg Q2H PRN Administration Pain, moderate (4-7) Oxcarbazepine 300 mg 07/16/16 18:00 07/18/16 10:35 Trileptal PO 300 mg BID [facility] Administration Protocol Prasugrel 10 mg 07/19/16 10:00 Effient PO DAILY ELOISA Ramipril 5 mg 07/16/16 12:02 07/18/16 10:35 Altace PO 5 mg DAILY ELOISA Administration - Patient Studies Lab Studies: Lab Studies 07/18/16 07/18/16 07/18/16 Range/Units 13:21 12:58 07:45 WBC 18.5 H (4.5-11.0) 10^3/ul RBC 3.26 L (3.5-6.1) 10^6/uL Hgb 10.8 L (14.0-18.0) gm/dL Hct 31.1 L (42.0-52.0) % MCV 95.4 (80.0-105.0) fL MCH 33.1 (25.0-35.0) pg MCHC 34.7 (31.0-37.0) g/dl RDW 13.2 (11.5-14.5) % Plt Count 229 (120.0-450.0) 10^3/uL MPV 10.7 (7.0-11.0) fl Gran % 76.9 H (50.0-68.0) % Lymph % (Auto) 11.0 L (22.0-35.0) % Hopkins % (Auto) 12.0 H (1.0-6.0) % Eos % (Auto) 0.0 L (1.5-5.0) % Baso % (Auto) 0.1 (0.0-3.0) % Gran # 14.20 H (1.4-6.5) Lymph # 2.0 (1.2-3.4) Hopkins # 2.2 H (0.1-0.6) Eos # 0.0 (0.0-0.7) Baso # 0.02 (0.0-2.0) K/mm3 PT (9.9-11.8) Seconds INR (0.93-1.08) APTT (23.7-30.8) Seconds pCO2 27 L (35-45) mm/Hg pO2 115.0 H (80-100) mm/Hg HCO3 24.7 (21-28) mmol/L ABG pH 7.57 H (7.35-7.45) ABG Total CO2 25.5 (22-28) mmol.L ABG O2 Saturation 98.7 H (95-98) % ABG O2 Content 14.4 L (15-23) ML/dl ABG Base Excess 3.2 H (-2.0-3.0) mmol/L ABG Hemoglobin 10.5 L (11.7-17.4) g/dL ABG Carboxyhemoglobin 2.1 H (0.5-1.5) % POC ABG HHb (Measured) 1.3 (0-5) % ABG Methemoglobin 0.7 (0.0-3.0) % ABG O2 Capacity 14.6 L (16-24) mL/dl Hgb O2 Saturation 96.0 (95.0-98.0) % FiO2 100.0 % Sodium 136 (132-148) mmol/L Potassium 3.5 L (3.6-5.0) mmol/L Chloride 101 (98-107) mmol/L Carbon Dioxide 31 (21-33) mmol/L Anion Gap 8 L (10-20) BUN 10 (7-21) mg/dL Creatinine 0.7 (0.5-1.4) mg/dL Est GFR ( Amer) > 60 Est GFR (Non-Af Amer) > 60 Random Glucose 120 H (70-110) mg/dL Calcium 8.4 (8.4-10.5) mg/dL Phosphorus (2.5-4.5) mg/dL Magnesium (1.7-2.2) mg/dL Total Bilirubin (0.2-1.3) mg/dL AST (15-59) U/L ALT (7-56) U/L Alkaline Phosphatase (38-133) U/L Lactate Dehydrogenase 2717 H (333-699) U/L Total Creatine Kinase 1534 H (35-230) U/L CK-MB (CK-2) 33.4 H (0.0-3.6) ng/mL CK-MB (CK-2) % 2.2 L (2.5-3.0) % Troponin I 44.30 H* 49.90 H* D ng/mL Total Protein (5.8-8.3) g/dL Albumin (3.0-4.8) g/dL Globulin gm/dL Albumin/Globulin Ratio (1.1-1.8) 07/18/16 07/18/16 07/17/16 Range/Units 07:32 01:35 19:36 WBC 16.4 H (4.5-11.0) 10^3/ul RBC 3.29 L (3.5-6.1) 10^6/uL Hgb 10.9 L (14.0-18.0) gm/dL Hct 31.8 L (42.0-52.0) % MCV 96.7 (80.0-105.0) fL MCH 33.1 (25.0-35.0) pg MCHC 34.3 (31.0-37.0) g/dl RDW 13.4 (11.5-14.5) % Plt Count 245 (120.0-450.0) 10^3/uL MPV 10.0 (7.0-11.0) fl Gran % 81.0 H (50.0-68.0) % Lymph % (Auto) 9.2 L (22.0-35.0) % Hopkins % (Auto) 9.7 H (1.0-6.0) % Eos % (Auto) 0.0 L (1.5-5.0) % Baso % (Auto) 0.1 (0.0-3.0) % Gran # 13.27 H (1.4-6.5) Lymph # 1.5 (1.2-3.4) Hopkins # 1.6 H (0.1-0.6) Eos # 0.0 (0.0-0.7) Baso # 0.01 (0.0-2.0) K/mm3 PT 10.9 (9.9-11.8) Seconds INR 1.01 (0.93-1.08) APTT 27.5 (23.7-30.8) Seconds pCO2 (35-45) mm/Hg pO2 (80-100) mm/Hg HCO3 (21-28) mmol/L ABG pH (7.35-7.45) ABG Total CO2 (22-28) mmol.L ABG O2 Saturation (95-98) % ABG O2 Content (15-23) ML/dl ABG Base Excess (-2.0-3.0) mmol/L ABG Hemoglobin (11.7-17.4) g/dL ABG Carboxyhemoglobin (0.5-1.5) % POC ABG HHb (Measured) (0-5) % ABG Methemoglobin (0.0-3.0) % ABG O2 Capacity (16-24) mL/dl Hgb O2 Saturation (95.0-98.0) % FiO2 % Sodium 134 (132-148) mmol/L Potassium 3.5 L (3.6-5.0) mmol/L Chloride 100 (98-107) mmol/L Carbon Dioxide 29 (21-33) mmol/L Anion Gap 9 L (10-20) BUN 11 (7-21) mg/dL Creatinine 0.7 (0.5-1.4) mg/dL Est GFR ( Amer) > 60 Est GFR (Non-Af Amer) > 60 Random Glucose 134 H (70-110) mg/dL Calcium 8.4 (8.4-10.5) mg/dL Phosphorus 3.5 3.3 (2.5-4.5) mg/dL Magnesium 1.7 1.8 (1.7-2.2) mg/dL Total Bilirubin 0.4 (0.2-1.3) mg/dL AST 524 H (15-59) U/L ALT 88 H (7-56) U/L Alkaline Phosphatase 47 (38-133) U/L Lactate Dehydrogenase 2811 H 2834 H (333-699) U/L Total Creatine Kinase 2523 H 3897 H (35-230) U/L CK-MB (CK-2) 58.4 H 125.0 H (0.0-3.6) ng/mL CK-MB (CK-2) % 2.3 L 3.2 H (2.5-3.0) % Troponin I 70.40 H* D 105.00 H* D ng/mL Total Protein 5.9 (5.8-8.3) g/dL Albumin 3.2 (3.0-4.8) g/dL Globulin 2.6 gm/dL Albumin/Globulin Ratio 1.2 (1.1-1.8) Laboratory Results - last 24 hr 07/17/16 07/18/16 07/18/16 19:36 01:35 07:32 WBC 16.4 H RBC 3.29 L Hgb 10.9 L Hct 31.8 L MCV 96.7 MCH 33.1 MCHC 34.3 RDW 13.4 Plt Count 245 MPV 10.0 Gran % 81.0 H Lymph % (Auto) 9.2 L Hopkins % (Auto) 9.7 H Eos % (Auto) 0.0 L Baso % (Auto) 0.1 Gran # 13.27 H Lymph # 1.5 Hopkins # 1.6 H Eos # 0.0 Baso # 0.01 PT 10.9 INR 1.01 APTT 27.5 pCO2 pO2 HCO3 ABG pH ABG Total CO2 ABG O2 Saturation ABG O2 Content ABG Base Excess ABG Hemoglobin ABG Carboxyhemoglobin POC ABG HHb (Measured) ABG Methemoglobin ABG O2 Capacity Hgb O2 Saturation FiO2 Sodium 134 Potassium 3.5 L Chloride 100 Carbon Dioxide 29 Anion Gap 9 L BUN 11 Creatinine 0.7 Est GFR ( Amer) > 60 Est GFR (Non-Af Amer) > 60 Random Glucose 134 H Calcium 8.4 Phosphorus 3.3 3.5 Magnesium 1.8 1.7 Total Bilirubin 0.4 AST 524 H ALT 88 H Alkaline Phosphatase 47 Lactate Dehydrogenase 2834 H 2811 H Total Creatine Kinase 3897 H 2523 H CK-MB (CK-2) 125.0 H 58.4 H CK-MB (CK-2) % 3.2 H 2.3 L Troponin I 105.00 H* D 70.40 H* D Total Protein 5.9 Albumin 3.2 Globulin 2.6 Albumin/Globulin Ratio 1.2 07/18/16 07/18/16 07/18/16 07:45 12:58 13:21 WBC 18.5 H RBC 3.26 L Hgb 10.8 L Hct 31.1 L MCV 95.4 MCH 33.1 MCHC 34.7 RDW 13.2 Plt Count 229 MPV 10.7 Gran % 76.9 H Lymph % (Auto) 11.0 L Hopkins % (Auto) 12.0 H Eos % (Auto) 0.0 L Baso % (Auto) 0.1 Gran # 14.20 H Lymph # 2.0 Hopkins # 2.2 H Eos # 0.0 Baso # 0.02 PT INR APTT pCO2 27 L pO2 115.0 H HCO3 24.7 ABG pH 7.57 H ABG Total CO2 25.5 ABG O2 Saturation 98.7 H ABG O2 Content 14.4 L ABG Base Excess 3.2 H ABG Hemoglobin 10.5 L ABG Carboxyhemoglobin 2.1 H POC ABG HHb (Measured) 1.3 ABG Methemoglobin 0.7 ABG O2 Capacity 14.6 L Hgb O2 Saturation 96.0 FiO2 100.0 Sodium 136 Potassium 3.5 L Chloride 101 Carbon Dioxide 31 Anion Gap 8 L BUN 10 Creatinine 0.7 Est GFR ( Amer) > 60 Est GFR (Non-Af Amer) > 60 Random Glucose 120 H Calcium 8.4 Phosphorus Magnesium Total Bilirubin AST ALT Alkaline Phosphatase Lactate Dehydrogenase 2717 H Total Creatine Kinase 1534 H CK-MB (CK-2) 33.4 H CK-MB (CK-2) % 2.2 L Troponin I 49.90 H* D 44.30 H* Total Protein Albumin Globulin Albumin/Globulin Ratio EKG/Cardiology Studies: Cardiology / EKG Studies 07/17/16 19:08 EKG [ELECTROCARDIOGRAM] Stat Comment: Reason For Exam: Pressure chest pain 07/18/16 08:53 EKG [ELECTROCARDIOGRAM] Stat Comment: Reason For Exam: followup 07/18/16 12:53 ELECTROCARDIOGRAM Stat Comment: Reason For Exam: CP 07/19/16 06:00 ELECTROCARDIOGRAM Routine Comment: Reason For Exam: CP Critical Care Progress Note - Nutrition Nutrition: Nutrition Category Date Time Status Heart Healthy Diet [DIET] Diets 07/16/16 Dinner Ordered Attending/Attestation - Attestation I have personally seen and examined this patient.: Yes I have fully participated in the care of the patient.: Yes I have reviewed all pertinent clinical information: Yes Notes (Text): 07/18/16 14:12 The patient was seen and examined at the bedside. Patient care was discussed with resident Medical records, lab studies, and imaging were reviewed and management issues were discussed and formulated. Last 24H events reviewed. Agree with above treatment plans as outlined in 's note with addition of the following: -hemodynamic monitoring to maintain MAP>65; currently stable -f\u ECho; f\u serial CE and ECG -continue ACS medications (Asa, Effient, Statin , BBlocker and TUNG) -continue Nitro drip and morphine PRN -pt continue to have chest pain, this was discussed with cardiology team who are following closely -o2 supplementation to maintain Spo2>90 Pao2>60; currently on 100% non- rebreather mask -f\u Bun\Cr and U\o -PO diet (cardiac ) and aspiration precautions -LE pulse checks -f\u LE duplex -f\u cultures -DVT \ PUD prophylaxis CCm f\u 35min
--- NOTE | 2016-07-18 12:37 | CARD ---
APPROVED REPORT EKG Measurement Heart [id number] <Conclusion> Sinus tachycardia Left axis deviation ILMI, evolving with persistent ST elevations
[2016-07-18 13:23] LABS: ARTERIAL BLOOD GAS HCO3 24.7 mmol/L (21-28); ARTERIAL BLOOD GAS O2 CAPACITY 14.6 mL/dl (16-24); ARTERIAL BLOOD GAS O2 CONTENT 14.4 ML/dl (15-23); ARTERIAL BLOOD GAS PH 7.57 (7.35-7.45); CARBOXYHEMOGLOBIN 2.1 % (0.5-1.5); HHB 1.3 % (0-5); METHEMOGLOBIN 0.7 % (0.0-3.0)
--- NOTE | 2016-07-18 13:48 | RAD ---
PROCEDURE: Portable chest HISTORY: CP COMPARISON: 07/16/2016. TECHNIQUE: Technique: Single view portable semi erect @ 13:04. FINDINGS: No active pulmonary disease. No pulmonary nodules, masses or infiltrates. No evidence of acute, significant cardiovascular disease. No significant pleural, osseous or subdiaphragmatic abnormalities. IMPRESSION: No active disease. No acute/significant interval changes.
[2016-07-18] MEDS: Magnesium Oxide 400 mg Tab UD PO SCH (17:28)
--- NOTE | 2016-07-19 01:29 | CP.PCM.PN ---
Subjective - Date & Time of Evaluation Date of Evaluation: 07/18/16 Time of Evaluation: 19:00 - Subjective Subjective: As er the Notes, he has been complaining of Chest pain after Second CAth Chart Reviewed and HGb dropped significantly and CT abdomen/Pelvis Ordered too R /O Retroperitoneal Hematoma. Objective - Vital Signs/Intake and Output Vital Signs (last 24 hours): Temp Pulse Resp BP Pulse Ox 98.4 F 115 H 46 H 122/66 100 07/19/16 00:00 07/18/16 23:00 07/18/16 23:00 07/18/16 23:00 07/18/16 23:00 - Medications Medications: Current Medications Alprazolam (Xanax) 0.25 mg PO TID [facility] PRN Reason: Protocol Stop: 07/23/16 18:01 Last Admin: 07/18/16 17:27 Dose: 0.25 mg Aspirin (Aspirin) 325 mg PO DAILY [facility] Last Admin: 07/18/16 10:35 Dose: 325 mg Atorvastatin Calcium (Lipitor) 80 mg PO DIN [facility] Last Admin: 07/18/16 17:28 Dose: 80 mg Benzocaine/Menthol (Cepacol Sore Throat) 1 meera MT Q4H PRN PRN Reason: Sore Throat Last Admin: 07/17/16 19:14 Dose: 1 meera Famotidine (Pepcid) 40 mg PO HS [facility] Last Admin: 07/18/16 22:44 Dose: 40 mg Nitroglycerin/Dextrose (Nitroglycerin 50 Mg/250 Ml D5w) 250 mls @ 1.5 mls/hr IV .Q24H PRN; Protocol; 5 MCG/MIN PRN Reason: Other Last Admin: 07/18/16 19:27 Dose: 1.5 mls/hr Magnesium Oxide (Mag-Ox) 400 mg PO BID [facility] Stop: 07/19/16 10:01 Last Admin: 07/18/16 17:28 Dose: 400 mg Metoprolol Tartrate (Lopressor) 25 mg PO Q6H [facility] Last Admin: 07/18/16 17:29 Dose: 25 mg Morphine Sulfate (Morphine) 2 mg IVP Q2H PRN PRN Reason: Pain, moderate (4-7) Last Admin: 07/18/16 19:17 Dose: 2 mg Oxcarbazepine (Trileptal) 300 mg PO BID [facility] PRN Reason: Protocol Last Admin: 07/18/16 17:25 Dose: 300 mg Prasugrel (Effient) 10 mg PO DAILY [facility] Ramipril (Altace) 5 mg PO DAILY [facility] Last Admin: 07/18/16 10:35 Dose: 5 mg - Labs Labs: 07/18/16 07:45 07/18/16 07:45 PT 10.9 Seconds (9.9-11.8) 07/17/16 19:36 INR 1.01 (0.93-1.08) 07/17/16 19:36 APTT 27.5 Seconds (23.7-30.8) 07/17/16 19:36 Assessment and Plan (1) Acute myocardial infarction Assessment & Plan: Continue [employer] Recommendations 2. H/H drop R/O Retroperitoneal Hematoma CT abdomen/Pelvis W/O Contrast Monitor H/H Continue to Monitor in ICU/CCU 3. SCD after Ruling out DVT Status: Acute
[2016-07-19] MEDS ORDERED: DiphenhydrAMINE 50 mg/ml Inj IVP ONE (01:50)
[2016-07-19 06:06] LABS: ADD MANUAL DIFF? NO
[2016-07-19] MEDS: Morphine 2 mg/ml ISec IVP PRN (06:16)
[2016-07-19 06:34] LABS: BASO # 0.01 [, K/mm3] (0.0-2.0); BASO % 0.1 % (0.0-3.0); GRAN # 15.65 (1.4-6.5); GRAN % 79.4 % (50.0-68.0); HEMATOCRIT 31.1 % (42.0-52.0); LYMPH % 10.2 % (22.0-35.0); MEAN CELL VOLUME 95.7 fL (80.0-105.0); MEAN CORPUSCULAR HEMOGLOBIN 33.5 pg (25.0-35.0); MEAN PLATELET VOLUME 11.1 fl (7.0-11.0); MONO % 10.3 % (1.0-6.0); PLATELET COUNT 237 [, 10^3/uL] (120.0-450.0); RED CELL DISTRIBUTION WIDTH 13.3 % (11.5-14.5); WHITE BLOOD COUNT 19.7 [, 10^3/ul] (4.5-11.0)
[2016-07-19 06:38] LABS: ALB/GLOB RATIO 1.1 (1.1-1.8); ALKALINE PHOSPHATASE 54 U/L (38-133); ALT/SGPT 52 U/L (7-56); AST/SGOT 99 U/L (15-59); BLOOD UREA NITROGEN 13 mg/dL (7-21); CARBON DIOXIDE 28 mmol/L (21-33); CHLORIDE 101 mmol/L (98-107); GFR AFRICAN-AMERICAN > 60; GLUCOSE,RANDOM 114 mg/dL (70-110); POTASSIUM 3.8 mmol/L (3.6-5.0); SODIUM 136 mmol/L (132-148); TOTAL PROTEIN 6.4 g/dL (5.8-8.3)
--- NOTE | 2016-07-19 07:24 | CARD ---
APPROVED REPORT EKG Measurement Heart [id number] <Conclusion> Sinus tachycardia Left axis deviation Lateral infarct, possibly acute Evolvong Inferior-posterior infarct Abnormal ECG
--- NOTE | 2016-07-19 07:53 | CP.CCUPN ---
<Janell Garcia - Last Filed: 07/19/16 11:21> CCU Subjective - Physician Review Events Since Last Encounter (Free Text): 07/19/16 11:21 Patient seen and examined bedside. No acute events overnight. Patient states CP is improved. Currently admits to 4/10 L-sided CP with movement. Admits to CP with inspiration. Denies SOB, abd pain, n/v, fevers, chills, diaphoresis, headache, dizziness. Off nitro drip as per cardiology, OOB to chair, tolerating diet without problems. Critical Care Time Spent (in minutes): 35 CCU Objective - Vital Signs / Intake & Output Vital Signs (Last 4 hours): Vital Signs Temp Pulse Resp BP Pulse Ox 07/19/16 07:40 98.2 F 07/19/16 06:16 112 H 117/67 07/19/16 06:00 106 H 29 H 114/74 100 07/19/16 05:00 113 H 28 H 117/67 99 07/19/16 04:00 111 H 32 H 116/73 99 - Physical Exam Head: Positive for: Atraumatic, Normocephalic Pupils: Positive for: PERRL Extroacular Muscles: Positive for: EOMI Conjunctiva: Positive for: Normal Mouth: Positive for: Moist Mucous Membranes Pharnyx: Positive for: Muffled/Hoarse Voice Nose (External): Positive for: Atraumatic Nose (Internal): Positive for: Normal Inspection Neck: Positive for: Normal Range of Motion Respiratory/Chest: Positive for: Clear to Auscultation, Respiratory Distress Cardiovascular: Positive for: Tachycardic Abdomen: Positive for: Normal Bowel Sounds. Negative for: Tenderness, Distention, Peritoneal Signs Upper Extremity: Positive for: Normal Inspection Lower Extremity: Positive for: Normal Inspection Neurological: Positive for: GCS=15 Skin: Positive for: Warm, Diaphoretic Psychiatric: Positive for: Alert, Oriented x 3 - Medications Active Medications: Active Medications Generic Name Dose Route Start Last Admin Trade Name Freq PRN Reason Stop Dose Admin Alprazolam 0.25 mg 07/16/16 18:00 07/18/16 17:27 Xanax PO 07/23/16 18:01 0.25 mg TID ELOISA Administration Protocol Aspirin 325 mg 07/17/16 10:00 07/18/16 10:35 Aspirin PO 325 mg DAILY ELOISA Administration Atorvastatin Calcium 80 mg 07/16/16 17:00 07/18/16 17:28 Lipitor PO 80 mg DIN ELOISA Administration Benzocaine/Menthol 1 meera 07/17/16 18:48 07/17/16 19:14 Cepacol Sore Throat MT 1 meera Q4H PRN Administration Sore Throat Famotidine 40 mg 07/18/16 22:00 07/18/16 22:44 Pepcid PO 40 mg HS ELOISA Administration Nitroglycerin/Dextrose 250 mls @ 1.5 mls/hr 07/17/16 18:10 07/18/16 19:27 Nitroglycerin 50 Mg/250 Ml D5w IV 1.5 mls/hr .Q24H PRN Administration Other Protocol 5 MCG/MIN Magnesium Oxide 400 mg 07/18/16 18:00 07/18/16 17:28 Mag-Ox PO 07/19/16 10:01 400 mg BID ELOISA Administration Metoprolol Tartrate 25 mg 07/16/16 12:15 07/19/16 06:16 Lopressor PO 25 mg Q6H ELOISA Administration Morphine Sulfate 2 mg 07/16/16 11:51 07/19/16 06:16 Morphine IVP 2 mg Q2H PRN Administration Pain, moderate (4-7) Oxcarbazepine 300 mg 07/16/16 18:00 07/18/16 17:25 Trileptal PO 300 mg BID ELOISA Administration Protocol Prasugrel 10 mg 07/19/16 10:00 Effient PO DAILY ELOISA Ramipril 5 mg 07/16/16 12:02 07/18/16 10:35 Altace PO 5 mg DAILY [facility] Administration - Patient Studies Lab Studies: Lab Studies 07/19/16 07/18/16 07/18/16 Range/Units 05:30 13:21 12:58 WBC 19.7 H (4.5-11.0) 10^3/ul RBC 3.25 L (3.5-6.1) 10^6/uL Hgb 10.9 L (14.0-18.0) gm/dL Hct 31.1 L (42.0-52.0) % MCV 95.7 (80.0-105.0) fL MCH 33.5 (25.0-35.0) pg MCHC 35.0 (31.0-37.0) g/dl RDW 13.3 (11.5-14.5) % Plt Count 237 (120.0-450.0) 10^3/uL MPV 11.1 H (7.0-11.0) fl Gran % 79.4 H (50.0-68.0) % Lymph % (Auto) 10.2 L (22.0-35.0) % [place] % (Auto) 10.3 H (1.0-6.0) % Eos % (Auto) 0.0 L (1.5-5.0) % Baso % (Auto) 0.1 (0.0-3.0) % Gran # 15.65 H (1.4-6.5) Lymph # 2.0 (1.2-3.4) [place] # 2.0 H (0.1-0.6) Eos # 0.0 (0.0-0.7) Baso # 0.01 (0.0-2.0) K/mm3 pCO2 27 L (35-45) mm/Hg pO2 115.0 H (80-100) mm/Hg HCO3 24.7 (21-28) mmol/L ABG pH 7.57 H (7.35-7.45) ABG Total CO2 25.5 (22-28) mmol.L ABG O2 Saturation 98.7 H (95-98) % ABG O2 Content 14.4 L (15-23) ML/dl ABG Base Excess 3.2 H (-2.0-3.0) mmol/L ABG Hemoglobin 10.5 L (11.7-17.4) g/dL ABG Carboxyhemoglobin 2.1 H (0.5-1.5) % POC ABG HHb (Measured) 1.3 (0-5) % ABG Methemoglobin 0.7 (0.0-3.0) % ABG O2 Capacity 14.6 L (16-24) mL/dl Hgb O2 Saturation 96.0 (95.0-98.0) % FiO2 100.0 % Sodium 136 (132-148) mmol/L Potassium 3.8 (3.6-5.0) mmol/L Chloride 101 (98-107) mmol/L Carbon Dioxide 28 (21-33) mmol/L Anion Gap 11 (10-20) BUN 13 (7-21) mg/dL Creatinine 0.7 (0.5-1.4) mg/dL Est GFR ( Amer) > 60 Est GFR (Non-Af Amer) > 60 Random Glucose 114 H (70-110) mg/dL Calcium 8.7 (8.4-10.5) mg/dL Phosphorus (2.5-4.5) mg/dL Magnesium (1.7-2.2) mg/dL Total Bilirubin 1.0 (0.2-1.3) mg/dL AST 99 H (15-59) U/L ALT 52 (7-56) U/L Alkaline Phosphatase 54 (38-133) U/L Lactate Dehydrogenase (333-699) U/L Total Creatine Kinase (35-230) U/L CK-MB (CK-2) (0.0-3.6) ng/mL CK-MB (CK-2) % (2.5-3.0) % Troponin I 21.70 H* D 44.30 H* ng/mL Total Protein 6.4 (5.8-8.3) g/dL Albumin 3.3 (3.0-4.8) g/dL Globulin 3.1 gm/dL Albumin/Globulin Ratio 1.1 (1.1-1.8) 07/18/16 07/18/16 Range/Units 07:45 07:32 WBC 18.5 H (4.5-11.0) 10^3/ul RBC 3.26 L (3.5-6.1) 10^6/uL Hgb 10.8 L (14.0-18.0) gm/dL Hct 31.1 L (42.0-52.0) % MCV 95.4 (80.0-105.0) fL MCH 33.1 (25.0-35.0) pg MCHC 34.7 (31.0-37.0) g/dl RDW 13.2 (11.5-14.5) % Plt Count 229 (120.0-450.0) 10^3/uL MPV 10.7 (7.0-11.0) fl Gran % 76.9 H (50.0-68.0) % Lymph % (Auto) 11.0 L (22.0-35.0) % [place] % (Auto) 12.0 H (1.0-6.0) % Eos % (Auto) 0.0 L (1.5-5.0) % Baso % (Auto) 0.1 (0.0-3.0) % Gran # 14.20 H (1.4-6.5) Lymph # 2.0 (1.2-3.4) [place] # 2.2 H (0.1-0.6) Eos # 0.0 (0.0-0.7) Baso # 0.02 (0.0-2.0) K/mm3 pCO2 (35-45) mm/Hg pO2 (80-100) mm/Hg HCO3 (21-28) mmol/L ABG pH (7.35-7.45) ABG Total CO2 (22-28) mmol.L ABG O2 Saturation (95-98) % ABG O2 Content (15-23) ML/dl ABG Base Excess (-2.0-3.0) mmol/L ABG Hemoglobin (11.7-17.4) g/dL ABG Carboxyhemoglobin (0.5-1.5) % POC ABG HHb (Measured) (0-5) % ABG Methemoglobin (0.0-3.0) % ABG O2 Capacity (16-24) mL/dl Hgb O2 Saturation (95.0-98.0) % FiO2 % Sodium 136 (132-148) mmol/L Potassium 3.5 L (3.6-5.0) mmol/L Chloride 101 (98-107) mmol/L Carbon Dioxide 31 (21-33) mmol/L Anion Gap 8 L (10-20) BUN 10 (7-21) mg/dL Creatinine 0.7 (0.5-1.4) mg/dL Est GFR ( Amer) > 60 Est GFR (Non-Af Amer) > 60 Random Glucose 120 H (70-110) mg/dL Calcium 8.4 (8.4-10.5) mg/dL Phosphorus 3.5 (2.5-4.5) mg/dL Magnesium 1.7 (1.7-2.2) mg/dL Total Bilirubin (0.2-1.3) mg/dL AST (15-59) U/L ALT (7-56) U/L Alkaline Phosphatase (38-133) U/L Lactate Dehydrogenase 2717 H (333-699) U/L Total Creatine Kinase 1534 H (35-230) U/L CK-MB (CK-2) 33.4 H (0.0-3.6) ng/mL CK-MB (CK-2) % 2.2 L (2.5-3.0) % Troponin I 49.90 H* D ng/mL Total Protein (5.8-8.3) g/dL Albumin (3.0-4.8) g/dL Globulin gm/dL Albumin/Globulin Ratio (1.1-1.8) Laboratory Results - last 24 hr 07/18/16 07/18/16 07/18/16 07:32 07:45 12:58 WBC 18.5 H RBC 3.26 L Hgb 10.8 L Hct 31.1 L MCV 95.4 MCH 33.1 MCHC 34.7 RDW 13.2 Plt Count 229 MPV 10.7 Gran % 76.9 H Lymph % (Auto) 11.0 L [place] % (Auto) 12.0 H Eos % (Auto) 0.0 L Baso % (Auto) 0.1 Gran # 14.20 H Lymph # 2.0 [place] # 2.2 H Eos # 0.0 Baso # 0.02 pCO2 pO2 HCO3 ABG pH ABG Total CO2 ABG O2 Saturation ABG O2 Content ABG Base Excess ABG Hemoglobin ABG Carboxyhemoglobin POC ABG HHb (Measured) ABG Methemoglobin ABG O2 Capacity Hgb O2 Saturation FiO2 Sodium 136 Potassium 3.5 L Chloride 101 Carbon Dioxide 31 Anion Gap 8 L BUN 10 Creatinine 0.7 Est GFR ( Amer) > 60 Est GFR (Non-Af Amer) > 60 Random Glucose 120 H Calcium 8.4 Phosphorus 3.5 Magnesium 1.7 Total Bilirubin AST ALT Alkaline Phosphatase Lactate Dehydrogenase 2717 H Total Creatine Kinase 1534 H CK-MB (CK-2) 33.4 H CK-MB (CK-2) % 2.2 L Troponin I 49.90 H* D 44.30 H* Total Protein Albumin Globulin Albumin/Globulin Ratio 07/18/16 07/19/16 13:21 05:30 WBC 19.7 H RBC 3.25 L Hgb 10.9 L Hct 31.1 L MCV 95.7 MCH 33.5 MCHC 35.0 RDW 13.3 Plt Count 237 MPV 11.1 H Gran % 79.4 H Lymph % (Auto) 10.2 L [place] % (Auto) 10.3 H Eos % (Auto) 0.0 L Baso % (Auto) 0.1 Gran # 15.65 H Lymph # 2.0 [place] # 2.0 H Eos # 0.0 Baso # 0.01 pCO2 27 L pO2 115.0 H HCO3 24.7 ABG pH 7.57 H ABG Total CO2 25.5 ABG O2 Saturation 98.7 H ABG O2 Content 14.4 L ABG Base Excess 3.2 H ABG Hemoglobin 10.5 L ABG Carboxyhemoglobin 2.1 H POC ABG HHb (Measured) 1.3 ABG Methemoglobin 0.7 ABG O2 Capacity 14.6 L Hgb O2 Saturation 96.0 FiO2 100.0 Sodium 136 Potassium 3.8 Chloride 101 Carbon Dioxide 28 Anion Gap 11 BUN 13 Creatinine 0.7 Est GFR ( Amer) > 60 Est GFR (Non-Af Amer) > 60 Random Glucose 114 H Calcium 8.7 Phosphorus Magnesium Total Bilirubin 1.0 AST 99 H ALT 52 Alkaline Phosphatase 54 Lactate Dehydrogenase Total Creatine Kinase CK-MB (CK-2) CK-MB (CK-2) % Troponin I 21.70 H* D Total Protein 6.4 Albumin 3.3 Globulin 3.1 Albumin/Globulin Ratio 1.1 EKG/Cardiology Studies: Cardiology / EKG Studies 07/18/16 08:53 EKG [ELECTROCARDIOGRAM] Stat Comment: Reason For Exam: followup 07/18/16 12:53 ELECTROCARDIOGRAM Stat Comment: Reason For Exam: CP 07/19/16 06:00 ELECTROCARDIOGRAM Routine Comment: Reason For Exam: CP Review of Systems - Constitutional Constitutional: absent: Fever, Chills - EENT Eyes: absent: Blurred Vision Ears: absent: Dizziness - Cardiovascular Cardiovascular: Chest Pain (4/10 Left). absent: Diaphoresis, Lightheadedness - Respiratory Respiratory: Pain on Inspiration. absent: Dyspnea - Gastrointestinal Gastrointestinal: Constipation. absent: Abdominal Pain, Nausea, Vomiting - Genitourinary Genitourinary: absent: Dysuria - Integumentary Integumentary: absent: New Lesions, Skin Ulcer - Psychiatric Psychiatric: Anxiety Critical Care Progress Note - Ventilator Checklist PUD Prophalyxis: Yes DVT Prophylaxis: Yes - Nutrition Nutrition: Nutrition Category Date Time Status Heart Healthy Diet [DIET] Diets 07/16/16 Dinner Ordered Assessment/Plan - Assessment and Plan (Free Text) Assessment: 41 yo M w h/o HTN and tobacco abuse admitted to ICU with acute inferolateral STEMI now s/p cath x2 Plan: Neuro: AAO x 3, Significant anxiety CV: Mild tachycardia low 100s. EKG shows no changes. Troponin continues to trend down. Off nitro drip. Continue lipitor, lopressor, ramipril, ASA, effient. Morphine PRN CP. CTA chest to r/o PE. BL LE venous dopplers showed no signs of DVT yesterday. Pulm: Will place on NRB, monitor resp function GI: GI ppx Transaminitis improving. Continue to trend Endo: No acute issues Renal: Renal function stable. ID: Afebrile. WBC count up to 19.7. Blood cultures negative at 25 hours. Will obtain blood and urine cx and r/o occult infection. Heme: Hb down to 10.9 from 15.1 at admission, but stable. No signs of bleeding. CT A/P shows no retroperitoneal hematoma. FEN: Continue HHD Mild hypokalemia yesterday resolved s/p replacement. Recheck labs in AM. DVT/GI ppx: Effient, Pepcid, HHD Dispo: CTA to r/o PE. If CTA negative to PE, will transfer to telemetry - Date & Time Date: 07/19/16 Time: 11:26 <Polo Mckeon - Last Filed: 07/19/16 13:07> CCU Objective - Vital Signs / Intake & Output Vital Signs (Last 4 hours): Vital Signs Pulse Resp BP Pulse Ox 07/19/16 11:56 126 H 07/19/16 11:52 124 H 136/81 07/19/16 09:37 138/73 07/19/16 09:00 120 H 128/77 96 07/19/16 08:37 119 H 22 138/73 95 Intake and Output (Last 8hrs): Intake & Output 07/18/16 07/19/16 07/19/16 22:59 06:59 14:59 Other: Voiding Method Urinal - Medications Active Medications: Active Medications Generic Name Dose Route Start Last Admin Trade Name Freq PRN Reason Stop Dose Admin Alprazolam 0.5 mg 07/19/16 09:34 07/19/16 10:58 Xanax PO 07/23/16 18:01 Not Given TID [facility] Protocol Aspirin 325 mg 07/17/16 10:00 07/19/16 09:39 Aspirin PO 325 mg DAILY ELOISA Administration Atorvastatin Calcium 80 mg 07/16/16 17:00 07/18/16 17:28 Lipitor PO 80 mg DIN ELOISA Administration Benzocaine/Menthol 1 meera 07/17/16 18:48 07/17/16 19:14 Cepacol Sore Throat MT 1 meera Q4H PRN Administration Sore Throat Famotidine 40 mg 07/18/16 22:00 07/18/16 22:44 Pepcid PO 40 mg HS ELOISA Administration Sodium Chloride 1,000 mls @ 75 mls/hr 07/19/16 10:30 07/19/16 11:04 Sodium Chloride 0.9% IV 75 mls/hr .[id number] ELOISA Administration Metoprolol Tartrate 50 mg 07/19/16 11:00 07/19/16 11:52 Lopressor PO 50 mg Q6H ELOISA Administration Morphine Sulfate 2 mg 07/16/16 11:51 07/19/16 06:16 Morphine IVP 2 mg Q2H PRN Administration Pain, moderate (4-7) Oxcarbazepine 300 mg 07/16/16 18:00 07/19/16 09:39 Trileptal PO 300 mg BID ELOISA Administration Protocol Prasugrel 10 mg 07/19/16 10:00 07/19/16 09:40 Effient PO 10 mg DAILY ELOISA Administration Ramipril 5 mg 07/16/16 12:02 07/19/16 09:37 Altace PO 5 mg DAILY ELOISA Administration - Patient Studies Lab Studies: Microbiology Studies 07/18/16 10:00 Blood Culture - Preliminary Blood NO GROWTH AFTER 24 HOURS Lab Studies 07/19/16 07/18/16 07/18/16 Range/Units 05:30 13:21 12:58 WBC 19.7 H (4.5-11.0) 10^3/ul RBC 3.25 L (3.5-6.1) 10^6/uL Hgb 10.9 L (14.0-18.0) gm/dL Hct 31.1 L (42.0-52.0) % MCV 95.7 (80.0-105.0) fL MCH 33.5 (25.0-35.0) pg MCHC 35.0 (31.0-37.0) g/dl RDW 13.3 (11.5-14.5) % Plt Count 237 (120.0-450.0) 10^3/uL MPV 11.1 H (7.0-11.0) fl Gran % 79.4 H (50.0-68.0) % Lymph % (Auto) 10.2 L (22.0-35.0) % [place] % (Auto) 10.3 H (1.0-6.0) % Eos % (Auto) 0.0 L (1.5-5.0) % Baso % (Auto) 0.1 (0.0-3.0) % Gran # 15.65 H (1.4-6.5) Lymph # 2.0 (1.2-3.4) [place] # 2.0 H (0.1-0.6) Eos # 0.0 (0.0-0.7) Baso # 0.01 (0.0-2.0) K/mm3 pCO2 27 L (35-45) mm/Hg pO2 115.0 H (80-100) mm/Hg HCO3 24.7 (21-28) mmol/L ABG pH 7.57 H (7.35-7.45) ABG Total CO2 25.5 (22-28) mmol.L ABG O2 Saturation 98.7 H (95-98) % ABG O2 Content 14.4 L (15-23) ML/dl ABG Base Excess 3.2 H (-2.0-3.0) mmol/L ABG Hemoglobin 10.5 L (11.7-17.4) g/dL ABG Carboxyhemoglobin 2.1 H (0.5-1.5) % POC ABG HHb (Measured) 1.3 (0-5) % ABG Methemoglobin 0.7 (0.0-3.0) % ABG O2 Capacity 14.6 L (16-24) mL/dl Hgb O2 Saturation 96.0 (95.0-98.0) % FiO2 100.0 % Sodium 136 (132-148) mmol/L Potassium 3.8 (3.6-5.0) mmol/L Chloride 101 (98-107) mmol/L Carbon Dioxide 28 (21-33) mmol/L Anion Gap 11 (10-20) BUN 13 (7-21) mg/dL Creatinine 0.7 (0.5-1.4) mg/dL Est GFR ( Amer) > 60 Est GFR (Non-Af Amer) > 60 Random Glucose 114 H (70-110) mg/dL Calcium 8.7 (8.4-10.5) mg/dL Phosphorus 3.4 (2.5-4.5) mg/dL Magnesium 2.2 (1.7-2.2) mg/dL Total Bilirubin 1.0 (0.2-1.3) mg/dL AST 99 H (15-59) U/L ALT 52 (7-56) U/L Alkaline Phosphatase 54 (38-133) U/L Troponin I 21.70 H* D 44.30 H* ng/mL Total Protein 6.4 (5.8-8.3) g/dL Albumin 3.3 (3.0-4.8) g/dL Globulin 3.1 gm/dL Albumin/Globulin Ratio 1.1 (1.1-1.8) Laboratory Results - last 24 hr 07/18/16 07/18/16 07/19/16 12:58 13:21 05:30 WBC 19.7 H RBC 3.25 L Hgb 10.9 L Hct 31.1 L MCV 95.7 MCH 33.5 MCHC 35.0 RDW 13.3 Plt Count 237 MPV 11.1 H Gran % 79.4 H Lymph % (Auto) 10.2 L [place] % (Auto) 10.3 H Eos % (Auto) 0.0 L Baso % (Auto) 0.1 Gran # 15.65 H Lymph # 2.0 [place] # 2.0 H Eos # 0.0 Baso # 0.01 pCO2 27 L pO2 115.0 H HCO3 24.7 ABG pH 7.57 H ABG Total CO2 25.5 ABG O2 Saturation 98.7 H ABG O2 Content 14.4 L ABG Base Excess 3.2 H ABG Hemoglobin 10.5 L ABG Carboxyhemoglobin 2.1 H POC ABG HHb (Measured) 1.3 ABG Methemoglobin 0.7 ABG O2 Capacity 14.6 L Hgb O2 Saturation 96.0 FiO2 100.0 Sodium 136 Potassium 3.8 Chloride 101 Carbon Dioxide 28 Anion Gap 11 BUN 13 Creatinine 0.7 Est GFR ( Amer) > 60 Est GFR (Non-Af Amer) > 60 Random Glucose 114 H Calcium 8.7 Phosphorus 3.4 Magnesium 2.2 Total Bilirubin 1.0 AST 99 H ALT 52 Alkaline Phosphatase 54 Troponin I 44.30 H* 21.70 H* D Total Protein 6.4 Albumin 3.3 Globulin 3.1 Albumin/Globulin Ratio 1.1 EKG/Cardiology Studies: Cardiology / EKG Studies 07/18/16 12:53 ELECTROCARDIOGRAM Stat Comment: Reason For Exam: CP 07/19/16 06:00 ELECTROCARDIOGRAM Routine Comment: Reason For Exam: CP Critical Care Progress Note - Nutrition Nutrition: Nutrition Category Date Time Status Heart Healthy Diet [DIET] Diets 07/16/16 Dinner Ordered Attending/Attestation - Attestation I have personally seen and examined this patient.: Yes I have fully participated in the care of the patient.: Yes I have reviewed all pertinent clinical information: Yes Notes (Text): 07/19/16 12:00 The patient was seen and examined at the bedside. Patient care was discussed with resident Medical records, lab studies, and imaging were reviewed and management issues were discussed and formulated. Last 24H events reviewed. Agree with above treatment plans as outlined in 's note with addition of the following: -hemodynamic monitoring to maintain MAP>65; currently stable -f\u ECho; f\u serial CE and ECG -continue ACS medications (Asa, Effient, Statin , BBlocker and TUNG) -pt stated his chest pain is improved -o2 supplementation to maintain Spo2>90 Pao2>60; currently on NC -start incentive spirometry -f\u CTA chest -B\L lower lobe consolidations noted with air bronchograms; suspicious for PNA -start broad spectum Abx for hospital acquired PNA and f\u cultures -consider ID eval -f\u Bun\Cr and U\o -PO diet (cardiac ) and aspiration precautions -f\u LE duplex -DVT \ PUD prophylaxis CCm f\u 35min 07/19/16 13:06 Addendum: -moderate pericardial effusion seen on CT chest -stat Echo ordered -CT surgery eval -cardiology team aware
[2016-07-19 09:19] LABS: MAGNESIUM 2.2 mg/dL (1.7-2.2); PHOSPHOROUS 3.4 mg/dL (2.5-4.5)
[2016-07-19 09:24] LABS: CALCIUM 8.7 mg/dL (8.4-10.5)
[2016-07-19] MEDS: Magnesium Oxide 400 mg Tab UD PO SCH (09:40)
--- NOTE | 2016-07-19 09:45 | CT ---
PROCEDURE: CT Abdomen and Pelvis without intravenous contrast HISTORY: R/O Retroperitoneal Hematoma COMPARISON: None. TECHNIQUE: Axial and reformatted coronal and sagittal CT images of the abdomen and pelvis were obtained without IV or oral contrast administration.. Contrast Dose: 0 Radiation dose: Total exam DLP = 648.69 mGy-cm. FINDINGS: LOWER THORAX: Small bilateral pleural effusions associated with bilateral lower lobe consolidation. Small to moderate amount of pericardial effusion LIVER: No evidence of acute pathology. Mild hepatomegaly is seen. GALLBLADDER AND BILE DUCTS: No evidence of cholecystitis. The gallbladder is contracted. PANCREAS: Unremarkable. No gross lesion or ductal dilatation. SPLEEN: Unremarkable. ADRENALS: Unremarkable. No mass. KIDNEYS AND URETERS: Unremarkable. No hydronephrosis. No solid mass. Nonspecific mild perinephric stranding seen bilaterally. VASCULATURE: Unremarkable. No aortic aneurysm. BOWEL: Unremarkable. No obstruction. No gross mural thickening. APPENDIX: Unremarkable. Normal appendix. PERITONEUM: Unremarkable. No free fluid. No free air. LYMPH NODES: Unremarkable. No enlarged lymph nodes. BLADDER: The urinary bladder is mildly distended. REPRODUCTIVE: Unremarkable. BONES: No acute fracture. OTHER FINDINGS: None. IMPRESSION: No evidence of retroperitoneal hematoma or fluid collection. No evidence of ascites or hematoma in the abdomen and pelvis. Small bilateral pleural effusions associated with almost complete collapse of the lower lobes . Small to moderate size pericardial effusion. Cardiomegaly. No CT evidence of acute pathology in the abdomen and pelvis.
[2016-07-19] MEDS ORDERED: POLYETHYLENE GLYCOL 3350 17 GM/Dose PACKET PO ONE (10:47)
[2016-07-19] MEDS ORDERED: Iodixanol 320 MG/ML 100 ML BOTTLE IV ONE (10:49)
[2016-07-19] MEDS: Sodium Chloride 0.9% 1,000 ML IV SCH (11:04)
--- NOTE | 2016-07-19 11:16 | PN ---
DATE: 07/19/2016 SUBJECTIVE: The patient is seen lying in bed in the ICU. He remains on intravenous nitroglycerin. He feels somewhat better. His chest pain is improved. At this time, there is a pleuritic component to his pain. His dyspnea is improved as well. He remains somewhat tachycardic. He appears somewhat anxious as well. CURRENT MEDICATIONS: Include intravenous nitroglycerin, Altace 5 mg daily, aspirin, Effient 10 mg da alethea, Lipitor 80 mg daily, metoprolol 25 mg q. 6 hours, morphine p.r.n., Nicoderm patch, Pepcid 40 mg daily, Trileptal 300 mg b.i.d. and Xanax. OBJECTIVE: GENERAL: He is a middle-aged man who appears somewhat anxious. VITAL SIGNS: His blood pressure is 116/66 with a pulse of 115, in sinus, respirations are 14, he is afebrile. HEENT: No JVD. CHEST: A few scattered rhonchi. HEART: PMI in normal position. No pathologic murmur or gallops audible. ABDOMEN: Soft, nontender, normoactive bowel sounds. EXTREMITIES: No edema. DIAGNOSTIC DATA: Potassium is 3.8, BUN and creatinine 13 and 0.7. Hemoglobin and hematocrit are 10. 9 and 31.7 with a white count 19.7, platelet count 237,000. Troponin is 21.7, down from 44.3 yesterd ay. Electrocardiogram reveals sinus rhythm with a recent inferolateral myocardial infarction pattern . Chest x-ray revealed a normal cardiac silhouette with clear lung barboza. IMPRESSION: 1. Recent inferolateral myocardial infarction, secondary to occluded large obtuse marginal branch. 2. Status post percutaneous coronary intervention of obtuse marginal branch with acute stent thrombo sis and vessel closure, status post repeat percutaneous intervention. 3. Persistent pain postoperatively, somewhat improved today. 4. Persistent tachycardia. 5. Chest pain today, sounds somewhat pleuritic in nature, doubt cardiac ischemia. Consideration for possible pulmonary embolus has been raised, although this would be somewhat less likely given his re cent anticoagulation with antiplatelet therapy, heparin and Integrilin. RECOMMENDATIONS: IV nitroglycerin will be discontinued. He should be gotten out of bed. Followup e nzymes will be planned for the morning. His beta jose dose will be increased as tolerated. Tiffany nued smoking abstinence is advised. His CT angiogram will be checked and followed. We will continue to follow along closely through his hospital stay and make further recommendations as appropriate. Hector Dejesus MD cc: [id number] TT: 07/19/2016 11:15:30 Confirmation # [id number] Dictation # [id number]
--- NOTE | 2016-07-19 12:04 | CT ---
PROCEDURE: CT Chest with contrast (Pulmonary Angiogram) HISTORY: r/o PE COMPARISON: None available. TECHNIQUE: Axial computed tomography images were obtained of the chest in the pulmonary arterial phase of enhancement. Coronal and sagittal reformatted images were created and reviewed. Intravenous contrast dose: 100 cc of Visipaque Radiation dose: Total exam DLP = 574 mGy-cm. FINDINGS: PULMONARY ARTERIES: Unremarkable. No pulmonary embolism. AORTA: No acute findings. No thoracic aortic aneurysm. LUNGS: Consolidation in both lung bases adjacent to small effusions PLEURAL SPACES: There is a moderate size pericardial effusion measuring 16 mm in thickness. Small bilateral pleural effusions are seen with adjacent consolidation HEART: Unremarkable. No cardiomegaly. No significant pericardial effusion. LYMPH NODES: No lymphadenopathy. BONES, CHEST WALL: Unremarkable. No fracture or destructive lesion OTHER FINDINGS: Unremarkable. IMPRESSION: Moderate size pericardial effusion. Small bilateral pleural effusions with adjacent consolidation. No evidence of pulmonary embolus
[2016-07-19] MEDS: Vancomycin 1gm in NS 250ml 250 ML IVPB SCH (12:36)
--- NOTE | 2016-07-19 16:38 | CARD ---
APPROVED REPORT EKG Measurement Heart [id number] MD [id number] <Conclusion> Sinus tachycardia Left anterior fascicular block Inferolateral MA with persisting ST elevations multiple leads, consider pericarditis, pericardial effusion, etc.
[2016-07-19] MEDS ORDERED: Piperacill/Tazo 4.5gm in NS 100 ML IVPB SCH (18:00)
--- NOTE | 2016-07-19 18:23 | US ---
HISTORY: Leg pain and swelling. Evaluate for DVT PHYSICIAN(S): Derrick Haider MD. TECHNIQUE: Duplex sonography and color-flow Doppler with graded compression were used to evaluate the deep venous systems of both lower extremities. FINDINGS: The visualized deep venous systems of both lower extremities are sonographically normal and compressible. Normal wave forms and augmentation are seen. There is no sonographic evidence for deep venous thrombosis in the visualized segments of both lower extremities. IMPRESSION: No sonographic evidence for deep venous thrombosis in the visualized segments of both lower extremities.
[2016-07-19] MEDS: Meropenem 1 GM in Sodium Chloride 0.9% 100 ML IVPB SCH (21:41)
--- NOTE | 2016-07-19 23:56 | CP.PCM.PN ---
Subjective - Date & Time of Evaluation Date of Evaluation: 07/19/16 Time of Evaluation: 20:15 - Subjective Subjective: Still continues to complain cp, and persistent Tachycardia. He states the chest pain is better than last night. Admits using drugs and was in Rehab Objective - Vital Signs/Intake and Output Vital Signs (last 24 hours): Temp Pulse Resp BP Pulse Ox 98.6 F 106 H 34 H 112/71 93 L 07/19/16 20:00 07/19/16 21:00 07/19/16 21:00 07/19/16 21:00 07/19/16 21:00 Intake and Output: 07/19/16 07/20/16 18:59 06:59 Intake Total 1864 Output Total 500 Balance 1364 - Medications Medications: Current Medications Acetaminophen (Tylenol 325mg Tab) 650 mg PO Q6H PRN PRN Reason: Fever >100.4 F Last Admin: 07/19/16 16:16 Dose: 650 mg Alprazolam (Xanax) 0.5 mg PO Q8 [facility] PRN Reason: Protocol Stop: 07/23/16 18:01 Last Admin: 07/19/16 20:00 Dose: 0.5 mg Aspirin (Aspirin) 325 mg PO DAILY [facility] Last Admin: 07/19/16 09:39 Dose: 325 mg Atorvastatin Calcium (Lipitor) 80 mg PO DIN [facility] Last Admin: 07/19/16 17:31 Dose: 80 mg Benzocaine/Menthol (Cepacol Sore Throat) 1 meera MT Q4H PRN PRN Reason: Sore Throat Last Admin: 07/17/16 19:14 Dose: 1 meera Famotidine (Pepcid) 40 mg PO HS [facility] Last Admin: 07/19/16 21:41 Dose: 40 mg Sodium Chloride (Sodium Chloride 0.9%) 1,000 mls @ 75 mls/hr IV .[id number] [facility] Last Admin: 07/19/16 11:04 Dose: 75 mls/hr Vancomycin HCl (Vancomycin 1gm) 250 mls @ 167 mls/hr IVPB Q12H [facility] PRN Reason: Protocol Last Admin: 07/19/16 12:36 Dose: 167 mls/hr Meropenem 1 gm/ Sodium (Chloride) 100 mls @ 100 mls/hr IVPB Q8 [facility] PRN Reason: Protocol Stop: 07/26/16 22:01 Last Admin: 07/19/16 21:41 Dose: 100 mls/hr Metoprolol Tartrate (Lopressor) 50 mg PO Q6H [facility] Last Admin: 07/19/16 17:32 Dose: 50 mg Morphine Sulfate (Morphine) 2 mg IVP Q2H PRN PRN Reason: Pain, moderate (4-7) Last Admin: 07/19/16 06:16 Dose: 2 mg Oxcarbazepine (Trileptal) 300 mg PO BID [facility] PRN Reason: Protocol Last Admin: 07/19/16 17:31 Dose: 300 mg Prasugrel (Effient) 10 mg PO DAILY [facility] Last Admin: 07/19/16 09:40 Dose: 10 mg Ramipril (Altace) 5 mg PO DAILY [facility] Last Admin: 07/19/16 09:37 Dose: 5 mg - Labs Labs: 07/19/16 05:30 07/19/16 05:30 PT 10.9 Seconds (9.9-11.8) 07/17/16 19:36 INR 1.01 (0.93-1.08) 07/17/16 19:36 APTT 27.5 Seconds (23.7-30.8) 07/17/16 19:36 - Constitutional Appears: In Acute Distress - Head Exam Head Exam: ATRAUMATIC, NORMAL INSPECTION, NORMOCEPHALIC - Eye Exam Eye Exam: EOMI, Normal appearance, PERRL Pupil Exam: NORMAL ACCOMODATION, PERRL - ENT Exam ENT Exam: Mucous Membranes Moist, Normal Exam - Neck Exam Neck Exam: Full ROM, Normal Inspection. absent: Lymphadenopathy - Respiratory Exam Respiratory Exam: Clear to Ausculation Bilateral, NORMAL BREATHING PATTERN - Cardiovascular Exam Cardiovascular Exam: Tachycardia, REGULAR RHYTHM, +S1, +S2. absent: Murmur - GI/Abdominal Exam GI & Abdominal Exam: Soft, Normal Bowel Sounds. absent: Tenderness - Exam Bimanual exam: NORMAL BIMANUAL EXAM - Extremities Exam Extremities Exam: absent: Joint Swelling, Pedal Edema - Back Exam Back Exam: NORMAL INSPECTION - Neurological Exam Neurological Exam: Alert, Awake, CN II-XII Intact, Normal Gait, Oriented x3 - Psychiatric Exam Psychiatric exam: Normal Affect, Normal Mood - Skin Skin Exam: Dry, Intact, Normal Color, Warm Assessment and Plan (1) Acute myocardial infarction Assessment & Plan: Hemodynamic monitoring to maintain MAP>65; currently stable F\u ECho; f\u serial CE and ECG Continue ACS medications (Asa, Effient, Statin , BBlocker and ACEI O2 supplementation F\u CTA chest Status: Acute (2) Sepsis Assessment & Plan: Persistent TAchycardia, Leukocytosis and B\L lower lobe consolidations which are suspicious for PNA Broad spectum Abx for hospital acquired PNA started F/U Cultures Serial CBCD ID Consulted Status: Acute (3) Tachycardia Assessment & Plan: Cardiac Event Vs Sepsis Vs Withdrawal from drug Ativan PRMN Status: Acute
[2016-07-20] MEDS: Vancomycin 1gm in NS 250ml 250 ML IVPB SCH ×2 (00:46→12:38)
[2016-07-20] MEDS: Morphine 2 mg/ml ISec IVP PRN ×3 (01:44→21:39)
[2016-07-20 06:29] LABS: ALB/GLOB RATIO 0.9 (1.1-1.8); ALKALINE PHOSPHATASE 61 U/L (38-133); ALT/SGPT 42 U/L (7-56); AST/SGOT 52 U/L (15-59); BILIRUBIN,TOTAL 0.6 mg/dL (0.2-1.3); BLOOD UREA NITROGEN 14 mg/dL (7-21); CALCIUM 8.4 mg/dL (8.4-10.5); CARBON DIOXIDE 27 mmol/L (21-33); CHLORIDE 102 mmol/L (98-107); GFR AFRICAN-AMERICAN > 60; GLUCOSE,RANDOM 119 mg/dL (70-110); MAGNESIUM 2.5 mg/dL (1.7-2.2); PHOSPHOROUS 3.4 mg/dL (2.5-4.5); SODIUM 135 mmol/L (132-148); TOTAL PROTEIN 6.6 g/dL (5.8-8.3)
[2016-07-20] MEDS: Meropenem 1 GM in Sodium Chloride 0.9% 100 ML IVPB SCH ×3 (06:29→21:27)
[2016-07-20] MEDS: Sodium Chloride 0.9% 1,000 ML IV SCH (06:47)
--- NOTE | 2016-07-20 07:48 | CP.PCM.PN ---
Subjective - Date & Time of Evaluation Date of Evaluation: 07/20/16 Time of Evaluation: 08:00 - Subjective Subjective: Stable in CCU. Less chest pain. CT Chest was neg for PE but + for mod. peric. effusion. Echo shows small effusion only. V/S noted. RSR PE: Lungs: clear Cor.: S1S2 Abd.: soft Ext.: no edema Neuro.: alert I/Q=5975/1000 Labs 07/19 noted. Trops trending down. BMP today NL. ECG 07/19: Sinus tachycardia, LAHB, ILMI with persisting ST elevations F/U Echo 07/19: prelim: Nl. LV fx. with small peric effusion. CT Chest: noted BC x1 NG at 24 hrs. Objective - Vital Signs/Intake and Output Vital Signs (last 24 hours): Temp Pulse Resp BP Pulse Ox 98.8 F 115 H 38 H 137/69 92 L 07/20/16 04:00 07/20/16 05:26 07/20/16 05:26 07/20/16 05:26 07/20/16 05:26 Intake and Output: 07/20/16 07/20/16 06:59 18:59 Intake Total 1350 Output Total 500 Balance 850 - Medications Medications: Current Medications Acetaminophen (Tylenol 325mg Tab) 650 mg PO Q6H PRN PRN Reason: Fever >100.4 F Last Admin: 07/19/16 16:16 Dose: 650 mg Alprazolam (Xanax) 0.5 mg PO Q8 [facility] PRN Reason: Protocol Stop: 07/23/16 18:01 Last Admin: 07/19/16 20:00 Dose: 0.5 mg Aspirin (Aspirin) 325 mg PO DAILY [facility] Last Admin: 07/19/16 09:39 Dose: 325 mg Atorvastatin Calcium (Lipitor) 80 mg PO DIN [facility] Last Admin: 07/19/16 17:31 Dose: 80 mg Benzocaine/Menthol (Cepacol Sore Throat) 1 meera MT Q4H PRN PRN Reason: Sore Throat Last Admin: 07/17/16 19:14 Dose: 1 meera Famotidine (Pepcid) 40 mg PO HS [facility] Last Admin: 07/19/16 21:41 Dose: 40 mg Sodium Chloride (Sodium Chloride 0.9%) 1,000 mls @ 75 mls/hr IV .[id number] [facility] Last Admin: 07/20/16 06:47 Dose: 75 mls/hr Vancomycin HCl (Vancomycin 1gm) 250 mls @ 167 mls/hr IVPB Q12H [facility] PRN Reason: Protocol Last Admin: 07/20/16 00:46 Dose: 167 mls/hr Meropenem 1 gm/ Sodium (Chloride) 100 mls @ 100 mls/hr IVPB Q8 [facility] PRN Reason: Protocol Stop: 07/26/16 22:01 Last Admin: 07/20/16 06:29 Dose: 100 mls/hr Metoprolol Tartrate (Lopressor) 50 mg PO Q6H [facility] Last Admin: 07/20/16 05:20 Dose: 50 mg Morphine Sulfate (Morphine) 2 mg IVP Q2H PRN PRN Reason: Pain, moderate (4-7) Last Admin: 07/20/16 01:44 Dose: 2 mg Oxcarbazepine (Trileptal) 300 mg PO BID [facility] PRN Reason: Protocol Last Admin: 07/19/16 17:31 Dose: 300 mg Prasugrel (Effient) 10 mg PO DAILY [facility] Last Admin: 07/19/16 09:40 Dose: 10 mg Ramipril (Altace) 5 mg PO DAILY [facility] Last Admin: 07/19/16 09:37 Dose: 5 mg - Labs Labs: 07/19/16 05:30 07/20/16 06:00 PT 10.9 Seconds (9.9-11.8) 07/17/16 19:36 INR 1.01 (0.93-1.08) 07/17/16 19:36 APTT 27.5 Seconds (23.7-30.8) 07/17/16 19:36 Assessment and Plan - Assessment and Plan (Free Text) Plan: Assessment. CP s/p SD with PCIs Pericardial effusion s/p PCI, small on echo, possible cor perf during procedure> hemopericardium. Continued CP>re-cath 07/17/16: thrombosed OM stent> reopened with 2 additional Hector s/p acute ILMI with PCI 2nd OM 07/16/16 Residual large diag br. stenosis Smoker Discogenic disease/back surgery Plan: Continue in CCU: OOB to chair as sarbjit. D/C IVF Monitor: labs, I/O, sats., trops., ECG. Will follow.
[2016-07-20 07:54] LABS: ADD MANUAL DIFF? NO
[2016-07-20 07:57] LABS: BASO # 0.02 [, K/mm3] (0.0-2.0); BASO % 0.1 % (0.0-3.0); EOS % 0.1 % (1.5-5.0); GRAN # 12.12 (1.4-6.5); GRAN % 79.2 % (50.0-68.0); LYMPH # 1.9 (1.2-3.4); LYMPH % 12.4 % (22.0-35.0); MEAN CELL VOLUME 96.8 fL (80.0-105.0); MEAN CORPUSCULAR HEMOGLOBIN 33.1 pg (25.0-35.0); MEAN CORPUSCULAR HGB CONC 34.2 g/dl (31.0-37.0); MEAN PLATELET VOLUME 11.2 fl (7.0-11.0); MONO # 1.3 (0.1-0.6); MONO % 8.2 % (1.0-6.0); PLATELET COUNT 250 [, 10^3/uL] (120.0-450.0); RED CELL DISTRIBUTION WIDTH 13.6 % (11.5-14.5); WHITE BLOOD COUNT 15.3 [, 10^3/ul] (4.5-11.0)
--- NOTE | 2016-07-20 09:42 | CARD ---
APPROVED REPORT EXAM: Two-dimensional and M-mode echocardiogram with Doppler and color Doppler. Other Information Quality : GoodRhythm : INDICATION Chest Pain, s/p AL/PCIs 2D DIMENSIONS Left Atrium (2D)4.0 (1.6-4.0cm)IVSd1.2 (0.7-1.1cm) LVDd4.8 (3.9-5.9cm)PWd1.2 (0.7-1.1cm) LVDs3.4 (2.5-4.0cm)FS (%) 29.0 % LVEF (%)55.0 (>50%) M-Mode DIMENSIONS Aortic Root3.60 (2.2-3.7cm)Aortic Cusp Exc.2.10 (1.5-2.0cm) Aortic Valve AoV Peak Rifoaaav083.0cm/s Mitral Valve MV E Skrmupbh74.0cm/sMV A Hzbyqska19.6cm/sE/A ratio1.1 TDI E/Lateral E'0.0E/Medial E'0.0 Pulmonary Valve PV Peak Aamfxxss76.4cm/sPV Peak Grad.3mmHg Tricuspid Valve TR Peak [id number]/sRAP [id number] Peak Gr.12mmHg [id number] LEFT VENTRICLE The left ventricle is normal size. There is normal left ventricular wall thickness. Normal overall EF. Mild inferolateral hypokinesis. RIGHT VENTRICLE The right ventricle is normal size. ATRIA The left atrium size is normal. The right atrium size is normal. The interatrial septum is intact with no evidence for an atrial septal defect. AORTIC VALVE The aortic valve is normal in structure. MITRAL VALVE The mitral valve is normal in structure. Mitral regurgitation is trace. TRICUSPID VALVE The tricuspid valve is normal in structure. There is trace tricuspid regurgitation. PULMONIC VALVE The pulmonic valve is not well visualized. GREAT VESSELS The aortic root is normal in size. PERICARDIAL EFFUSION There is a small circumferential pericardial effusion. <Conclusion> The left ventricle is normal size. There is normal left ventricular wall thickness. Normal overall EF. Mild inferolateral hypokinesis. There is a small circumferential pericardial effusion.
--- NOTE | 2016-07-20 10:10 | CP.PCM.CON ---
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 He had a similar episode 2 weeks ago which spontaneously resolved then. The paitnet was then found to have STEMI and underwent cardiac cath. He was then placed in the ICU for closer observation. Yesterday the patient developed fever and CT chest was done yesterday which showed bilateral pleural effusions and possible consolidations on both lower lobes. Infectious diseases consult is requested to further evaluate and manage. Currently the patient was able to walk around the hallways but still feels a little weak. He still has some dyspnea on exertion but no shortness of breath at rest. This morning he has no fever or chills, no nausea or vomiting, no chest pain, no abdominal pain, no body aches, no rhinorrhea, no cough, no dysphagia or odynophagia, no diarrhea, no hematuria or dysuria. He denies travel outside of [place] in the past 3 months and he has no known ill contact and no animal contacts. Review of Systems - Review of Systems All systems: reviewed and no additional remarkable complaints except (as per HPI ) Past Patient History - Infectious Disease Hx of Infectious Diseases: None - Tetanus Immunizations Tetanus Immunization: Unknown - Past Medical History & Family History Past Medical History?: Yes - Past Social History Smoking Status: Heavy Smoker > 10 Cigarettes Daily Alcohol: Social Drugs: Denies - CARDIAC Hx Hypertension: Yes - INTEGUMENTARY Other/Comment: lump on left forehead pt stated "I have had that for years" 2cm x 2cm - MUSCULOSKELETAL/RHEUMATOLOGICAL Hx Falls: No - PSYCHIATRIC Hx Depression: No Hx Emotional Abuse: No Hx Physical Abuse: No Hx Substance Use: No - SURGICAL HISTORY Other/Comment: sx 2008 2 discs cervical 2 discs lumbar spine - ANESTHESIA Hx Anesthesia: Yes Hx Anesthesia Reactions: No Hx Malignant Hyperthermia: No Meds Allergies/Adverse Reactions: Allergies Allergy/AdvReac Type Severity Reaction Status Date / Time No Known Allergies Allergy Verified 07/16/16 08:26 - Medications Medications: Current Medications Acetaminophen (Tylenol 325mg Tab) 650 mg PO Q6H PRN PRN Reason: Fever >100.4 F Last Admin: 07/19/16 16:16 Dose: 650 mg Alprazolam (Xanax) 0.5 mg PO Q8 [facility] PRN Reason: Protocol Stop: 07/23/16 18:01 Aspirin (Aspirin) 325 mg PO DAILY [facility] Last Admin: 07/19/16 09:39 Dose: 325 mg Atorvastatin Calcium (Lipitor) 80 mg PO DIN [facility] Last Admin: 07/19/16 17:31 Dose: 80 mg Benzocaine/Menthol (Cepacol Sore Throat) 1 meera MT Q4H PRN PRN Reason: Sore Throat Last Admin: 07/17/16 19:14 Dose: 1 meera Famotidine (Pepcid) 40 mg PO HS [facility] Last Admin: 07/18/16 22:44 Dose: 40 mg Sodium Chloride (Sodium Chloride 0.9%) 1,000 mls @ 75 mls/hr IV .[id number] [facility] Last Admin: 07/19/16 11:04 Dose: 75 mls/hr Vancomycin HCl (Vancomycin 1gm) 250 mls @ 167 mls/hr IVPB Q12H [facility] PRN Reason: Protocol Last Admin: 07/19/16 12:36 Dose: 167 mls/hr Meropenem 1 gm/ Sodium (Chloride) 100 mls @ 100 mls/hr IVPB Q8 [facility] PRN Reason: Protocol Stop: 07/26/16 22:01 Metoprolol Tartrate (Lopressor) 50 mg PO Q6H [facility] Last Admin: 07/19/16 17:32 Dose: 50 mg Morphine Sulfate (Morphine) 2 mg IVP Q2H PRN PRN Reason: Pain, moderate (4-7) Last Admin: 07/19/16 06:16 Dose: 2 mg Oxcarbazepine (Trileptal) 300 mg PO BID [facility] PRN Reason: Protocol Last Admin: 07/19/16 17:31 Dose: 300 mg Prasugrel (Effient) 10 mg PO DAILY [facility] Last Admin: 07/19/16 09:40 Dose: 10 mg Ramipril (Altace) 5 mg PO DAILY [facility] Last Admin: 07/19/16 09:37 Dose: 5 mg Physical Exam - Constitutional Appears: Non-toxic, No Acute Distress - Head Exam Head Exam: NORMAL INSPECTION - Eye Exam Eye Exam: Normal appearance - ENT Exam ENT Exam: Mucous Membranes Moist - Neck Exam Neck exam: Negative for: Meningismus - Respiratory Exam Respiratory Exam: Decreased Breath Sounds (at the bases with some crackles noted ) - Cardiovascular Exam Cardiovascular Exam: +S1, +S2 - GI/Abdominal Exam GI & Abdominal Exam: Soft. absent: Tenderness Results - Vital Signs Recent Vital Signs: Last Vital Signs Temp 101.1 F H 07/19/16 16:16 Pulse 107 H 07/19/16 17:32 Resp 38 H 07/19/16 15:00 BP 127/63 07/19/16 17:32 Pulse Ox 93 L 07/19/16 15:21 - Labs Result Diagrams: 07/20/16 06:45 07/20/16 06:00 Labs: Laboratory Results - last 24 hr 07/19/16 05:30 WBC 19.7 H RBC 3.25 L Hgb 10.9 L Hct 31.1 L MCV 95.7 MCH 33.5 MCHC 35.0 RDW 13.3 Plt Count 237 MPV 11.1 H Gran % 79.4 H Lymph % (Auto) 10.2 L Luce % (Auto) 10.3 H Eos % (Auto) 0.0 L Baso % (Auto) 0.1 Gran # 15.65 H Lymph # 2.0 Luce # 2.0 H Eos # 0.0 Baso # 0.01 Sodium 136 Potassium 3.8 Chloride 101 Carbon Dioxide 28 Anion Gap 11 BUN 13 Creatinine 0.7 Est GFR ( Amer) > 60 Est GFR (Non-Af Amer) > 60 Random Glucose 114 H Calcium 8.7 Phosphorus 3.4 Magnesium 2.2 Total Bilirubin 1.0 AST 99 H ALT 52 Alkaline Phosphatase 54 Troponin I 21.70 H* D Total Protein 6.4 Albumin 3.3 Globulin 3.1 Albumin/Globulin Ratio 1.1 Assessment & Plan - Assessment and Plan (Free Text) Plan: Assessment Consider sepsis secondary to bilateral lower lobe healthcare-associated pneumonia with possible gram positive cocci and/or gram negative bacilli ST elevation myocardial infarction S/P cardiac catheterization and intervention heavy smoking lumbar spine disc herniation s/p surgery in 2007 Plan Started patient on Vancomycin and Meropenem pending sputum cx, blood cx, PCT; will add PO Doxycycline and check urine Legionella Ag; reviewed CT chest and discussed with Dr. Mckeon (ICU physician) Will follow clinical response, trend fever curve and WBC count
--- NOTE | 2016-07-20 11:06 | CP.CCUPN ---
<Janell Garcia - Last Filed: 07/20/16 12:16> CCU Subjective - Physician Review Events Since Last Encounter (Free Text): 07/20/16 12:16 Patient seen and examined bedside. No acute events overnight. Patient was febrile yesterday with new infiltrated on CT chest, no PE. Now on abx for new BL LL PNA. Patient currently denies CP. Admits to mild SOB and tremulousness. Admits to withdrawing from narcotics. Tolerating diet without difficulty. Has not had BM since admission. Critical Care Time Spent (in minutes): 30 CCU Objective - Vital Signs / Intake & Output Vital Signs (Last 4 hours): Vital Signs Temp Pulse BP 07/20/16 09:09 131/75 07/20/16 08:30 114 H 07/20/16 08:00 98.2 F Intake and Output (Last 8hrs): Intake & Output 07/19/16 07/20/16 07/20/16 22:59 06:59 14:59 Intake Total 1864 1350 Output Total 500 500 Balance 1364 850 Weight 194 lb 8 oz Intake: IV 764 1350 Right Antecubital 764 Right Hand 450 IVF 900 Oral 1100 Output: Urine 500 500 Urine, Voided 500 500 Other: Voiding Method Urinal Urinal # Bowel Movements 0 - Physical Exam Head: Positive for: Atraumatic, Normocephalic Pupils: Positive for: PERRL Extroacular Muscles: Positive for: EOMI Conjunctiva: Positive for: Normal Mouth: Positive for: Moist Mucous Membranes Pharnyx: Positive for: Muffled/Hoarse Voice Nose (External): Positive for: Atraumatic Nose (Internal): Positive for: Normal Inspection Neck: Positive for: Normal Range of Motion Respiratory/Chest: Positive for: Clear to Auscultation, Respiratory Distress Cardiovascular: Positive for: Tachycardic Abdomen: Positive for: Normal Bowel Sounds. Negative for: Tenderness, Distention, Peritoneal Signs Upper Extremity: Positive for: Normal Inspection Lower Extremity: Positive for: Normal Inspection Neurological: Positive for: GCS=15 Skin: Positive for: Warm, Diaphoretic Psychiatric: Positive for: Alert, Oriented x 3 - Medications Active Medications: Active Medications Generic Name Dose Route Start Last Admin Trade Name Freq PRN Reason Stop Dose Admin Acetaminophen 650 mg 07/19/16 15:45 07/19/16 16:16 Tylenol 325mg Tab PO 650 mg Q6H PRN Administration Fever >100.4 F Alprazolam 0.5 mg 07/19/16 20:00 07/20/16 07:00 Xanax PO 07/23/16 18:01 0.5 mg Q8 ELOISA Administration Protocol Aspirin 325 mg 07/17/16 10:00 07/20/16 09:08 Aspirin PO 325 mg DAILY ELOISA Administration Atorvastatin Calcium 80 mg 07/16/16 17:00 07/19/16 17:31 Lipitor PO 80 mg DIN ELOISA Administration Benzocaine/Menthol 1 meera 07/17/16 18:48 07/17/16 19:14 Cepacol Sore Throat MT 1 meera Q4H PRN Administration Sore Throat Doxycycline Hyclate 100 mg 07/20/16 10:15 07/20/16 10:25 Doryx PO 100 mg Q12 ELOISA Administration Protocol Famotidine 40 mg 07/18/16 22:00 07/19/16 21:41 Pepcid PO 40 mg HS ELOISA Administration Sodium Chloride 1,000 mls @ 75 mls/hr 07/19/16 10:30 07/20/16 06:47 Sodium Chloride 0.9% IV 75 mls/hr .[id number] ELOISA Administration Vancomycin HCl 250 mls @ 167 mls/hr 07/19/16 12:15 07/20/16 00:46 Vancomycin 1gm IVPB 167 mls/hr Q12H ELOISA Administration Protocol Meropenem 1 gm/ Sodium 100 mls @ 100 mls/hr 07/19/16 22:00 07/20/16 06:29 Chloride IVPB 07/26/16 22:01 100 mls/hr Q8 ELOISA Administration Protocol Metoprolol Tartrate 50 mg 07/19/16 11:00 07/20/16 05:20 Lopressor PO 50 mg Q6H ELOISA Administration Morphine Sulfate 2 mg 07/16/16 11:51 07/20/16 01:44 Morphine IVP 2 mg Q2H PRN Administration Pain, moderate (4-7) Oxcarbazepine 300 mg 07/16/16 18:00 07/20/16 09:10 Trileptal PO 300 mg BID ELOISA Administration Protocol Prasugrel 10 mg 07/19/16 10:00 07/20/16 09:08 Effient PO 10 mg DAILY ELOISA Administration Ramipril 5 mg 07/16/16 12:02 07/20/16 09:09 Altace PO 5 mg DAILY ELOISA Administration - Patient Studies Lab Studies: Microbiology Studies 07/18/16 10:00 Blood Culture - Preliminary Blood NO GROWTH AFTER 48 HOURS Lab Studies 07/20/16 07/20/16 Range/Units 06:45 06:00 WBC 15.3 H D (4.5-11.0) 10^3/ul RBC 3.41 L (3.5-6.1) 10^6/uL Hgb 11.3 L (14.0-18.0) gm/dL Hct 33.0 L (42.0-52.0) % MCV 96.8 (80.0-105.0) fL MCH 33.1 (25.0-35.0) pg MCHC 34.2 (31.0-37.0) g/dl RDW 13.6 (11.5-14.5) % Plt Count 250 (120.0-450.0) 10^3/uL MPV 11.2 H (7.0-11.0) fl Gran % 79.2 H (50.0-68.0) % Lymph % (Auto) 12.4 L (22.0-35.0) % [place] % (Auto) 8.2 H (1.0-6.0) % Eos % (Auto) 0.1 L (1.5-5.0) % Baso % (Auto) 0.1 (0.0-3.0) % Gran # 12.12 H (1.4-6.5) Lymph # 1.9 (1.2-3.4) [place] # 1.3 H (0.1-0.6) Eos # 0.0 (0.0-0.7) Baso # 0.02 (0.0-2.0) K/mm3 Sodium 135 (132-148) mmol/L Potassium 4.0 (3.6-5.0) mmol/L Chloride 102 (98-107) mmol/L Carbon Dioxide 27 (21-33) mmol/L Anion Gap 10 (10-20) BUN 14 (7-21) mg/dL Creatinine 0.7 (0.5-1.4) mg/dL Est GFR ( Amer) > 60 Est GFR (Non-Af Amer) > 60 Random Glucose 119 H (70-110) mg/dL Calcium 8.4 (8.4-10.5) mg/dL Phosphorus 3.4 (2.5-4.5) mg/dL Magnesium 2.5 H (1.7-2.2) mg/dL Total Bilirubin 0.6 (0.2-1.3) mg/dL AST 52 (15-59) U/L ALT 42 (7-56) U/L Alkaline Phosphatase 61 (38-133) U/L Total Protein 6.6 (5.8-8.3) g/dL Albumin 3.2 (3.0-4.8) g/dL Globulin 3.4 gm/dL Albumin/Globulin Ratio 0.9 L (1.1-1.8) Laboratory Results - last 24 hr 07/20/16 07/20/16 06:00 06:45 WBC 15.3 H D RBC 3.41 L Hgb 11.3 L Hct 33.0 L MCV 96.8 MCH 33.1 MCHC 34.2 RDW 13.6 Plt Count 250 MPV 11.2 H Gran % 79.2 H Lymph % (Auto) 12.4 L [place] % (Auto) 8.2 H Eos % (Auto) 0.1 L Baso % (Auto) 0.1 Gran # 12.12 H Lymph # 1.9 [place] # 1.3 H Eos # 0.0 Baso # 0.02 Sodium 135 Potassium 4.0 Chloride 102 Carbon Dioxide 27 Anion Gap 10 BUN 14 Creatinine 0.7 Est GFR ( Amer) > 60 Est GFR (Non-Af Amer) > 60 Random Glucose 119 H Calcium 8.4 Phosphorus 3.4 Magnesium 2.5 H Total Bilirubin 0.6 AST 52 ALT 42 Alkaline Phosphatase 61 Total Protein 6.6 Albumin 3.2 Globulin 3.4 Albumin/Globulin Ratio 0.9 L Review of Systems - Constitutional Constitutional: absent: Fever, Chills - EENT Eyes: absent: Change in Vision Ears: absent: Dizziness - Cardiovascular Cardiovascular: Dyspnea (mild). absent: Chest Pain, Dyspnea on Exertion, Edema , Palpitations - Respiratory Respiratory: absent: Cough - Gastrointestinal Gastrointestinal: Constipation. absent: Abdominal Pain, Diarrhea, Nausea, Vomiting - Genitourinary Genitourinary: absent: Dysuria - Integumentary Integumentary: absent: New Lesions - Neurological Neurological: absent: Disequilibrium, Dizziness, Headaches Critical Care Progress Note - Ventilator Checklist PUD Prophalyxis: Yes DVT Prophylaxis: Yes - Nutrition Nutrition: Nutrition Category Date Time Status Heart Healthy Diet [DIET] Diets 07/16/16 Dinner Ordered Assessment/Plan - Assessment and Plan (Free Text) Assessment: 41 yo M w h/o HTN and tobacco abuse admitted to ICU with acute inferolateral STEMI now s/p cath x2 Plan: Neuro: AAO x 3, Significant anxiety. Continue Xanax Q8hr Maintain normothermia CV: Mild tachycardia low 100s. EKG shows no changes. Troponin continues to trend down. Off nitro drip. Continue lipitor, lopressor, ramipril, ASA, effient. Morphine PRN CP. CTA chest showed no evidence of PE. Small BL pleural effusions with adjacent consolidation. Moderate pericardial effusion. Moderate pericardial effusion seen on CTA chest. Small pericardial effusion on 2D ECHO. Repeat ECHO tomorrow as per cardio recs to ensure stability. Pulm: Stable, on NC. Continue to monitor. GI: GI ppx Miralax Qday PRN constipation Transaminitis resolved Endo: No acute issues. Maintain euglycemia 140-180 Renal: Renal function stable. ID: BL LL PNA. Currently afebrile. Tmax 101.1 in past 24 hours. WBC count improved 15.3 now on Doxy, meropenem and Vanc as per ID. Blood cultures negative at 48 hours. Heme: Hb down to 11.3 from 15.1 at admission, but currently stable. No signs of bleeding. CT A/P shows no retroperitoneal hematoma. FEN: Continue HHD DVT/GI ppx: Effient, Pepcid, HHD Dispo: Transfer to telemetry - Date & Time Date: 07/20/16 Time: 12:20 <Polo Mckeon - Last Filed: 07/20/16 13:18> CCU Objective - Vital Signs / Intake & Output Vital Signs (Last 4 hours): Vital Signs Pulse BP 07/20/16 12:38 108 H 120/64 Intake and Output (Last 8hrs): Intake & Output 07/19/16 07/20/16 07/20/16 22:59 06:59 14:59 Intake Total 1864 1350 Output Total 500 500 Balance 1364 850 Weight 194 lb 8 oz Intake: IV 764 1350 Right Antecubital 764 Right Hand 450 IVF 900 Oral 1100 Output: Urine 500 500 Urine, Voided 500 500 Other: Voiding Method Urinal Urinal # Bowel Movements 0 - Medications Active Medications: Active Medications Generic Name Dose Route Start Last Admin Trade Name Freq PRN Reason Stop Dose Admin Acetaminophen 650 mg 07/19/16 15:45 07/19/16 16:16 Tylenol 325mg Tab PO 650 mg Q6H PRN Administration Fever >100.4 F Alprazolam 0.5 mg 07/19/16 20:00 07/20/16 07:00 Xanax PO 07/23/16 18:01 0.5 mg Q8 ELOISA Administration Protocol Aspirin 325 mg 07/17/16 10:00 07/20/16 09:08 Aspirin PO 325 mg DAILY ELOISA Administration Atorvastatin Calcium 80 mg 07/16/16 17:00 07/19/16 17:31 Lipitor PO 80 mg DIN ELOISA Administration Benzocaine/Menthol 1 meera 07/17/16 18:48 07/17/16 19:14 Cepacol Sore Throat MT 1 meera Q4H PRN Administration Sore Throat Doxycycline Hyclate 100 mg 07/20/16 10:15 07/20/16 10:25 Doryx PO 100 mg Q12 ELOISA Administration Protocol Famotidine 40 mg 07/18/16 22:00 07/19/16 21:41 Pepcid PO 40 mg HS ELOISA Administration Sodium Chloride 1,000 mls @ 75 mls/hr 07/19/16 10:30 07/20/16 06:47 Sodium Chloride 0.9% IV 75 mls/hr .[id number] ELOISA Administration Vancomycin HCl 250 mls @ 167 mls/hr 07/19/16 12:15 07/20/16 12:38 Vancomycin 1gm IVPB 167 mls/hr Q12H ELOISA Administration Protocol Meropenem 1 gm/ Sodium 100 mls @ 100 mls/hr 07/19/16 22:00 07/20/16 06:29 Chloride IVPB 07/26/16 22:01 100 mls/hr Q8 ELOISA Administration Protocol Metoprolol Tartrate 50 mg 07/19/16 11:00 07/20/16 12:38 Lopressor PO 50 mg Q6H ELOISA Administration Morphine Sulfate 2 mg 07/16/16 11:51 07/20/16 01:44 Morphine IVP 2 mg Q2H PRN Administration Pain, moderate (4-7) Oxcarbazepine 300 mg 07/16/16 18:00 07/20/16 09:10 Trileptal PO 300 mg BID ELOISA Administration Protocol Polyethylene Glycol 17 gm 07/20/16 12:18 Miralax PO DAILY PRN Constipation Prasugrel 10 mg 07/19/16 10:00 07/20/16 09:08 Effient PO 10 mg DAILY ELOISA Administration Ramipril 5 mg 07/16/16 12:02 07/20/16 09:09 Altace PO 5 mg DAILY ELOISA Administration - Patient Studies Lab Studies: Microbiology Studies 07/18/16 10:00 Blood Culture - Preliminary Blood NO GROWTH AFTER 48 HOURS Lab Studies 07/20/16 07/20/16 Range/Units 06:45 06:00 WBC 15.3 H D (4.5-11.0) 10^3/ul RBC 3.41 L (3.5-6.1) 10^6/uL Hgb 11.3 L (14.0-18.0) gm/dL Hct 33.0 L (42.0-52.0) % MCV 96.8 (80.0-105.0) fL MCH 33.1 (25.0-35.0) pg MCHC 34.2 (31.0-37.0) g/dl RDW 13.6 (11.5-14.5) % Plt Count 250 (120.0-450.0) 10^3/uL MPV 11.2 H (7.0-11.0) fl Gran % 79.2 H (50.0-68.0) % Lymph % (Auto) 12.4 L (22.0-35.0) % [place] % (Auto) 8.2 H (1.0-6.0) % Eos % (Auto) 0.1 L (1.5-5.0) % Baso % (Auto) 0.1 (0.0-3.0) % Gran # 12.12 H (1.4-6.5) Lymph # 1.9 (1.2-3.4) [place] # 1.3 H (0.1-0.6) Eos # 0.0 (0.0-0.7) Baso # 0.02 (0.0-2.0) K/mm3 Sodium 135 (132-148) mmol/L Potassium 4.0 (3.6-5.0) mmol/L Chloride 102 (98-107) mmol/L Carbon Dioxide 27 (21-33) mmol/L Anion Gap 10 (10-20) BUN 14 (7-21) mg/dL Creatinine 0.7 (0.5-1.4) mg/dL Est GFR ( Amer) > 60 Est GFR (Non-Af Amer) > 60 Random Glucose 119 H (70-110) mg/dL Calcium 8.4 (8.4-10.5) mg/dL Phosphorus 3.4 (2.5-4.5) mg/dL Magnesium 2.5 H (1.7-2.2) mg/dL Total Bilirubin 0.6 (0.2-1.3) mg/dL AST 52 (15-59) U/L ALT 42 (7-56) U/L Alkaline Phosphatase 61 (38-133) U/L Total Protein 6.6 (5.8-8.3) g/dL Albumin 3.2 (3.0-4.8) g/dL Globulin 3.4 gm/dL Albumin/Globulin Ratio 0.9 L (1.1-1.8) Laboratory Results - last 24 hr 07/20/16 07/20/16 06:00 06:45 WBC 15.3 H D RBC 3.41 L Hgb 11.3 L Hct 33.0 L MCV 96.8 MCH 33.1 MCHC 34.2 RDW 13.6 Plt Count 250 MPV 11.2 H Gran % 79.2 H Lymph % (Auto) 12.4 L [place] % (Auto) 8.2 H Eos % (Auto) 0.1 L Baso % (Auto) 0.1 Gran # 12.12 H Lymph # 1.9 [place] # 1.3 H Eos # 0.0 Baso # 0.02 Sodium 135 Potassium 4.0 Chloride 102 Carbon Dioxide 27 Anion Gap 10 BUN 14 Creatinine 0.7 Est GFR ( Amer) > 60 Est GFR (Non-Af Amer) > 60 Random Glucose 119 H Calcium 8.4 Phosphorus 3.4 Magnesium 2.5 H Total Bilirubin 0.6 AST 52 ALT 42 Alkaline Phosphatase 61 Total Protein 6.6 Albumin 3.2 Globulin 3.4 Albumin/Globulin Ratio 0.9 L Critical Care Progress Note - Nutrition Nutrition: Nutrition Category Date Time Status Heart Healthy Diet [DIET] Diets 07/16/16 Dinner Ordered Attending/Attestation - Attestation I have personally seen and examined this patient.: Yes I have fully participated in the care of the patient.: Yes I have reviewed all pertinent clinical information: Yes Notes (Text): 07/20/16 13:16 The patient was seen and examined at the bedside. Patient care was discussed with resident Medical records, lab studies, and imaging were reviewed and management issues were discussed and formulated. Last 24H events reviewed. Agree with above treatment plans as outlined in 's note with addition of the following: -hemodynamic monitoring to maintain MAP>65; currently stable -repeat ECho shows small pericardial effusion, no tamponade (pls see full read in EMR) -continue ACS medications (Asa, Effient, Statin , BBlocker and TUNG) -pt is chest pain free this am -cardiology team is following closely -o2 supplementation to maintain Spo2>90 Pao2>60; currently on room air -continue incentive spirometry -continue broad spectum Abx as per ID team and f\u cultures -f\u Bun\Cr and U\o -PO diet (cardiac ) and aspiration precautions -Pt\Ot for OOB -DVT \ PUD prophylaxis CCm f\u 25min
[2016-07-20] MEDS ORDERED: POLYETHYLENE GLYCOL 3350 17 GM/Dose PACKET PO PRN (12:18)
--- NOTE | 2016-07-20 23:16 | CP.PCM.PN ---
Subjective - Date & Time of Evaluation Date of Evaluation: 07/20/16 Time of Evaluation: 19:15 - Subjective Subjective: Patient seen and examined at the bedside.Patient was febrile yesterday with new infiltrated on CT chest, no PE. Now on abx for new BL LL PNA. Denies CP. +SOB and tremulousness. Admits to withdrawing from narcotics. Has been tachycardic on Telemonitoring. Objective - Vital Signs/Intake and Output Vital Signs (last 24 hours): Temp Pulse Resp BP Pulse Ox 100.2 F H 112 H 24 130/77 93 L 07/20/16 20:00 07/20/16 22:00 07/20/16 22:00 07/20/16 22:00 07/20/16 22:00 Intake and Output: 07/20/16 07/21/16 18:59 06:59 Intake Total 1948 Output Total 960 Balance 988 - Medications Medications: Current Medications Acetaminophen (Tylenol 325mg Tab) 650 mg PO Q6H PRN PRN Reason: Fever >100.4 F Last Admin: 07/19/16 16:16 Dose: 650 mg Alprazolam (Xanax) 0.5 mg PO Q8 [facility] PRN Reason: Protocol Stop: 07/23/16 18:01 Last Admin: 07/20/16 21:29 Dose: 0.5 mg Aspirin (Aspirin) 325 mg PO DAILY [facility] Last Admin: 07/20/16 09:08 Dose: 325 mg Atorvastatin Calcium (Lipitor) 80 mg PO DIN [facility] Last Admin: 07/20/16 17:15 Dose: 80 mg Benzocaine/Menthol (Cepacol Sore Throat) 1 meera MT Q4H PRN PRN Reason: Sore Throat Last Admin: 07/17/16 19:14 Dose: 1 meera Doxycycline Hyclate (Doryx) 100 mg PO Q12 ELOISA PRN Reason: Protocol Last Admin: 07/20/16 21:27 Dose: 100 mg Famotidine (Pepcid) 40 mg PO HS [facility] Last Admin: 07/20/16 21:28 Dose: 40 mg Sodium Chloride (Sodium Chloride 0.9%) 1,000 mls @ 75 mls/hr IV .[id number] [facility] Last Admin: 07/20/16 06:47 Dose: 75 mls/hr Vancomycin HCl (Vancomycin 1gm) 250 mls @ 167 mls/hr IVPB Q12H ELOISA PRN Reason: Protocol Last Admin: 07/20/16 12:38 Dose: 167 mls/hr Meropenem 1 gm/ Sodium (Chloride) 100 mls @ 100 mls/hr IVPB Q8 ELOISA PRN Reason: Protocol Stop: 07/26/16 22:01 Last Admin: 07/20/16 21:27 Dose: 100 mls/hr Metoprolol Tartrate (Lopressor) 50 mg PO Q6H ELOISA Last Admin: 07/20/16 17:15 Dose: 50 mg Morphine Sulfate (Morphine) 2 mg IVP Q4 PRN PRN Reason: Pain, moderate (4-7) Last Admin: 07/20/16 21:39 Dose: 2 mg Oxcarbazepine (Trileptal) 300 mg PO BID ELOISA PRN Reason: Protocol Last Admin: 07/20/16 17:16 Dose: 300 mg Polyethylene Glycol (Miralax) 17 gm PO DAILY PRN PRN Reason: Constipation Prasugrel (Effient) 10 mg PO DAILY [facility] Last Admin: 07/20/16 09:08 Dose: 10 mg Ramipril (Altace) 5 mg PO DAILY [facility] Last Admin: 07/20/16 09:09 Dose: 5 mg - Labs Labs: 07/20/16 06:45 07/20/16 06:00 PT 10.9 Seconds (9.9-11.8) 07/17/16 19:36 INR 1.01 (0.93-1.08) 07/17/16 19:36 APTT 27.5 Seconds (23.7-30.8) 07/17/16 19:36 Assessment and Plan (1) Acute myocardial infarction Status: Resolved
[2016-07-21] MEDS: Vancomycin 1gm in NS 250ml 250 ML IVPB SCH ×2 (00:04→12:33)
[2016-07-21] MEDS: Morphine 2 mg/ml ISec IVP PRN ×3 (02:50→16:54)
[2016-07-21] MEDS: Meropenem 1 GM in Sodium Chloride 0.9% 100 ML IVPB SCH ×3 (05:48→23:57)
--- NOTE | 2016-07-21 08:16 | CP.PCM.PN ---
Subjective - Date & Time of Evaluation Date of Evaluation: 07/21/16 Time of Evaluation: 08:00 - Subjective Subjective: Stable on 2R now. No CP or SOB now. Occasional twinge of left sided discomfort when turning over in bed. V/S noted. RSR/Sinus tachy. T= 100.2 max PE: Lungs: clear Cor.: S1S2 Abd.: soft Ext.: no edema Neuro.: alert I/U=[id number] Labs 07/20 noted. Trops trending down. ECG 07/19: Sinus tachycardia, LAHB, ILMI with persisting ST elevations F/U Echo 07/19: prelim: Nl. LV fx. with small peric effusion. CT Chest: noted BC x1 NG at 48 hrs. Objective - Vital Signs/Intake and Output Vital Signs (last 24 hours): Temp Pulse Resp BP Pulse Ox 99.1 F 101 H 20 126/83 98 07/21/16 06:59 07/21/16 06:59 07/21/16 06:59 07/21/16 06:59 07/21/16 06:59 Intake and Output: 07/21/16 07/21/16 06:59 18:59 Intake Total 850 Output Total 700 Balance 150 - Medications Medications: Current Medications Acetaminophen (Tylenol 325mg Tab) 650 mg PO Q6H PRN PRN Reason: Fever >100.4 F Last Admin: 07/19/16 16:16 Dose: 650 mg Alprazolam (Xanax) 0.5 mg PO Q8 [facility]LOISA PRN Reason: Protocol Stop: 07/23/16 18:01 Last Admin: 07/21/16 05:49 Dose: 0.5 mg Aspirin (Aspirin) 325 mg PO DAILY [facility] Last Admin: 07/20/16 09:08 Dose: 325 mg Atorvastatin Calcium (Lipitor) 80 mg PO DIN [facility] Last Admin: 07/20/16 17:15 Dose: 80 mg Benzocaine/Menthol (Cepacol Sore Throat) 1 meera MT Q4H PRN PRN Reason: Sore Throat Last Admin: 07/17/16 19:14 Dose: 1 meera Doxycycline Hyclate (Doryx) 100 mg PO Q12 ELOISA PRN Reason: Protocol Last Admin: 07/20/16 21:27 Dose: 100 mg Famotidine (Pepcid) 40 mg PO HS [facility] Last Admin: 07/20/16 21:28 Dose: 40 mg Sodium Chloride (Sodium Chloride 0.9%) 1,000 mls @ 75 mls/hr IV .[id number] [facility] Last Admin: 07/20/16 06:47 Dose: 75 mls/hr Vancomycin HCl (Vancomycin 1gm) 250 mls @ 167 mls/hr IVPB Q12H [facility]LOISA PRN Reason: Protocol Last Admin: 07/21/16 00:04 Dose: 167 mls/hr Meropenem 1 gm/ Sodium (Chloride) 100 mls @ 100 mls/hr IVPB Q8 ELOISA PRN Reason: Protocol Stop: 07/26/16 22:01 Last Admin: 07/21/16 05:48 Dose: 100 mls/hr Metoprolol Tartrate (Lopressor) 100 mg PO BID [facility] Morphine Sulfate (Morphine) 2 mg IVP Q4 PRN PRN Reason: Pain, moderate (4-7) Last Admin: 07/21/16 02:50 Dose: 2 mg Oxcarbazepine (Trileptal) 300 mg PO BID [facility] PRN Reason: Protocol Last Admin: 07/20/16 17:16 Dose: 300 mg Polyethylene Glycol (Miralax) 17 gm PO DAILY PRN PRN Reason: Constipation Prasugrel (Effient) 10 mg PO DAILY [facility] Last Admin: 07/20/16 09:08 Dose: 10 mg Ramipril (Altace) 5 mg PO DAILY [facility] Last Admin: 07/20/16 09:09 Dose: 5 mg - Labs Labs: 07/20/16 06:45 07/20/16 06:00 PT 10.9 Seconds (9.9-11.8) 07/17/16 19:36 INR 1.01 (0.93-1.08) 07/17/16 19:36 APTT 27.5 Seconds (23.7-30.8) 07/17/16 19:36 Assessment and Plan - Assessment and Plan (Free Text) Plan: Assessment. CP s/p NJ with PCIs Pericardial effusion s/p PCI, small on echo, possible cor perf during procedure> hemopericardium. Continued CP>re-cath 07/17/16: thrombosed OM stent> reopened with 2 additional Hector s/p acute ILMI with PCI 2nd OM 3/12/17 Residual large diag br. stenosis Smoker Discogenic disease/back surgery Plan: OOB as sarbjit./PT Make metoprolol tart. 100 BID As per ID Monitor: labs, I/O, sats. Will follow.
--- NOTE | 2016-07-21 14:15 | CP.PCM.PN ---
Subjective - Date & Time of Evaluation Date of Evaluation: 07/21/16 Time of Evaluation: 09:45 - Subjective Subjective: Resting comfortably in bed, afebrile, not in distress, less cough. Objective - Vital Signs/Intake and Output Vital Signs (last 24 hours): Temp Pulse Resp BP Pulse Ox 99.1 F 101 H 20 126/83 98 07/21/16 06:59 07/21/16 06:59 07/21/16 06:59 07/21/16 06:59 07/21/16 06:59 Intake and Output: 07/21/16 07/21/16 06:59 18:59 Intake Total 850 Output Total 700 Balance 150 - Medications Medications: Current Medications Acetaminophen (Tylenol 325mg Tab) 650 mg PO Q6H PRN PRN Reason: Fever >100.4 F Last Admin: 07/19/16 16:16 Dose: 650 mg Alprazolam (Xanax) 0.5 mg PO Q8 [facility]LO[facility] PRN Reason: Protocol Stop: 07/23/16 18:01 Last Admin: 07/21/16 05:49 Dose: 0.5 mg Aspirin (Aspirin) 325 mg PO DAILY [facility] Last Admin: 07/20/16 09:08 Dose: 325 mg Atorvastatin Calcium (Lipitor) 80 mg PO DIN [facility] Last Admin: 07/20/16 17:15 Dose: 80 mg Benzocaine/Menthol (Cepacol Sore Throat) 1 meera MT Q4H PRN PRN Reason: Sore Throat Last Admin: 07/17/16 19:14 Dose: 1 meera Doxycycline Hyclate (Doryx) 100 mg PO Q12 [facility] PRN Reason: Protocol Last Admin: 07/20/16 21:27 Dose: 100 mg Famotidine (Pepcid) 40 mg PO HS [facility] Last Admin: 07/20/16 21:28 Dose: 40 mg Sodium Chloride (Sodium Chloride 0.9%) 1,000 mls @ 75 mls/hr IV .[id number] [facility] Last Admin: 07/20/16 06:47 Dose: 75 mls/hr Vancomycin HCl (Vancomycin 1gm) 250 mls @ 167 mls/hr IVPB Q12H [facility] PRN Reason: Protocol Last Admin: 07/21/16 00:04 Dose: 167 mls/hr Meropenem 1 gm/ Sodium (Chloride) 100 mls @ 100 mls/hr IVPB Q8 [facility] PRN Reason: Protocol Stop: 07/26/16 22:01 Last Admin: 07/21/16 05:48 Dose: 100 mls/hr Metoprolol Tartrate (Lopressor) 100 mg PO BID [facility] Morphine Sulfate (Morphine) 2 mg IVP Q4 PRN PRN Reason: Pain, moderate (4-7) Last Admin: 07/21/16 02:50 Dose: 2 mg Oxcarbazepine (Trileptal) 300 mg PO BID [facility] PRN Reason: Protocol Last Admin: 07/20/16 17:16 Dose: 300 mg Polyethylene Glycol (Miralax) 17 gm PO DAILY PRN PRN Reason: Constipation Prasugrel (Effient) 10 mg PO DAILY [facility], [facility]–1983 Last Admin: 07/20/16 09:08 Dose: 10 mg Ramipril (Altace) 5 mg PO DAILY [facility], [facility]1983 Last Admin: 07/20/16 09:09 Dose: 5 mg - Labs Labs: 07/20/16 06:45 07/20/16 06:00 PT 10.9 Seconds (9.9-11.8) 07/17/16 19:36 INR 1.01 (0.93-1.08) 07/17/16 19:36 APTT 27.5 Seconds (23.7-30.8) 07/17/16 19:36 - Constitutional Appears: Non-toxic, No Acute Distress - Head Exam Head Exam: NORMAL INSPECTION - ENT Exam ENT Exam: Mucous Membranes Moist - Neck Exam Neck Exam: absent: Lymphadenopathy, Meningismus - Respiratory Exam Respiratory Exam: Decreased Breath Sounds - Cardiovascular Exam Cardiovascular Exam: +S1, +S2 - GI/Abdominal Exam GI & Abdominal Exam: Soft. absent: Tenderness Assessment and Plan - Assessment and Plan (Free Text) Plan: Assessment Consider sepsis secondary to bilateral lower lobe healthcare-associated pneumonia with possible gram positive cocci and/or gram negative bacilli, slowly improving ST elevation myocardial infarction S/P cardiac catheterization and intervention heavy smoking lumbar spine disc herniation s/p surgery in 2007 Plan continue Vancomycin and Meropenem (day 2) pending final sputum cx, blood cx results (which are negative so far); urine Legionella Ag ie negative; reviewed CT chest Will continue to follow clinical response, trend fever curve and WBC count
--- NOTE | 2016-07-21 23:07 | CP.PCM.PN ---
Subjective - Date & Time of Evaluation Date of Evaluation: 07/21/16 Time of Evaluation: 10:00 Objective - Vital Signs/Intake and Output Vital Signs (last 24 hours): Temp Pulse Resp BP Pulse Ox 98.1 F 108 H 19 129/77 98 07/21/16 17:54 07/21/16 18:00 07/21/16 17:54 07/21/16 17:54 07/21/16 06:59 - Medications Medications: Current Medications Acetaminophen (Tylenol 325mg Tab) 650 mg PO Q6H PRN PRN Reason: Fever >100.4 F Last Admin: 07/19/16 16:16 Dose: 650 mg Alprazolam (Xanax) 0.5 mg PO Q8 [facility] PRN Reason: Protocol Stop: 07/23/16 18:01 Last Admin: 07/21/16 14:27 Dose: Not Given Aspirin (Aspirin) 325 mg PO DAILY [facility] Last Admin: 07/21/16 10:11 Dose: 325 mg Atorvastatin Calcium (Lipitor) 80 mg PO DIN [facility] Last Admin: 07/21/16 16:53 Dose: 80 mg Benzocaine/Menthol (Cepacol Sore Throat) 1 meera MT Q4H PRN PRN Reason: Sore Throat Last Admin: 07/17/16 19:14 Dose: 1 meera Doxycycline Hyclate (Doryx) 100 mg PO Q12 [facility] PRN Reason: Protocol Last Admin: 07/21/16 10:12 Dose: 100 mg Famotidine (Pepcid) 40 mg PO HS [facility] Last Admin: 07/20/16 21:28 Dose: 40 mg Sodium Chloride (Sodium Chloride 0.9%) 1,000 mls @ 75 mls/hr IV .[id number] [facility] Last Admin: 07/20/16 06:47 Dose: 75 mls/hr Vancomycin HCl (Vancomycin 1gm) 250 mls @ 167 mls/hr IVPB Q12H [facility] PRN Reason: Protocol Last Admin: 07/21/16 12:33 Dose: 167 mls/hr Meropenem 1 gm/ Sodium (Chloride) 100 mls @ 100 mls/hr IVPB Q8 [facility] PRN Reason: Protocol Stop: 07/26/16 22:01 Last Admin: 07/21/16 14:26 Dose: 100 mls/hr Metoprolol Tartrate (Lopressor) 100 mg PO BID [facility] Last Admin: 07/21/16 19:15 Dose: Not Given Morphine Sulfate (Morphine) 2 mg IVP Q4 PRN PRN Reason: Pain, moderate (4-7) Last Admin: 07/21/16 16:54 Dose: 2 mg Oxcarbazepine (Trileptal) 300 mg PO BID [facility] PRN Reason: Protocol Last Admin: 07/21/16 19:14 Dose: Not Given Polyethylene Glycol (Miralax) 17 gm PO DAILY PRN PRN Reason: Constipation Prasugrel (Effient) 10 mg PO DAILY [facility] Last Admin: 07/21/16 10:12 Dose: 10 mg Ramipril (Altace) 5 mg PO DAILY [facility] Last Admin: 07/21/16 10:11 Dose: 5 mg - Labs Labs: 07/20/16 06:45 07/20/16 06:00 PT 10.9 Seconds (9.9-11.8) 07/17/16 19:36 INR 1.01 (0.93-1.08) 07/17/16 19:36 APTT 27.5 Seconds (23.7-30.8) 07/17/16 19:36 Assessment and Plan (1) Acute myocardial infarction Status: Acute
[2016-07-22] MEDS: Meropenem 1 GM in Sodium Chloride 0.9% 100 ML IVPB SCH ×3 (06:34→22:50)
--- NOTE | 2016-07-22 07:58 | CP.PCM.PN ---
Subjective - Date & Time of Evaluation Date of Evaluation: 07/22/16 Time of Evaluation: 08:00 - Subjective Subjective: Stable on 2R. No CP or SOB now. V/S noted. RSR/Sinus tachy. PE: Lungs: clear Cor.: S1S2 Abd.: soft Ext.: no edema Neuro.: alert I/D=[id number] ECG 07/19: Sinus tachycardia, LAHB, ILMI with persisting ST elevations F/U Echo 07/19: prelim: Nl. LV fx. with small peric effusion. 07/21 echo > no change in small peric. effusion CT Chest: noted BC x1 NG at 3 days Objective - Vital Signs/Intake and Output Vital Signs (last 24 hours): Temp Pulse Resp BP Pulse Ox 98.1 F 108 H 19 128/74 98 07/21/16 17:54 07/21/16 18:00 07/21/16 17:54 07/22/16 00:01 07/21/16 06:59 Intake and Output: 07/22/16 07/22/16 06:59 18:59 Intake Total 600 Output Total 1400 Balance -800 - Medications Medications: Current Medications Acetaminophen (Tylenol 325mg Tab) 650 mg PO Q6H PRN PRN Reason: Fever >100.4 F Last Admin: 07/19/16 16:16 Dose: 650 mg Alprazolam (Xanax) 0.5 mg PO Q8 [facility] PRN Reason: Protocol Stop: 07/23/16 18:01 Last Admin: 07/22/16 00:07 Dose: 0.5 mg Aspirin (Aspirin) 325 mg PO DAILY [facility] Last Admin: 07/21/16 10:11 Dose: 325 mg Atorvastatin Calcium (Lipitor) 80 mg PO DIN [facility] Last Admin: 07/21/16 16:53 Dose: 80 mg Benzocaine/Menthol (Cepacol Sore Throat) 1 meera MT Q4H PRN PRN Reason: Sore Throat Last Admin: 07/17/16 19:14 Dose: 1 meera Doxycycline Hyclate (Doryx) 100 mg PO Q12 [facility] PRN Reason: Protocol Last Admin: 07/21/16 23:56 Dose: 100 mg Famotidine (Pepcid) 40 mg PO HS [facility] Last Admin: 07/21/16 23:59 Dose: 40 mg Sodium Chloride (Sodium Chloride 0.9%) 1,000 mls @ 75 mls/hr IV .[id number] [facility] Last Admin: 07/20/16 06:47 Dose: 75 mls/hr Vancomycin HCl (Vancomycin 1gm) 250 mls @ 167 mls/hr IVPB Q12H [facility] PRN Reason: Protocol Last Admin: 07/22/16 00:00 Dose: 167 mls/hr Meropenem 1 gm/ Sodium (Chloride) 100 mls @ 100 mls/hr IVPB Q8 [facility] PRN Reason: Protocol Stop: 07/26/16 22:01 Last Admin: 07/22/16 06:34 Dose: 100 mls/hr Metoprolol Tartrate (Lopressor) 100 mg PO BID [facility] Last Admin: 07/21/16 19:15 Dose: Not Given Morphine Sulfate (Morphine) 2 mg IVP Q4 PRN PRN Reason: Pain, moderate (4-7) Last Admin: 07/21/16 16:54 Dose: 2 mg Oxcarbazepine (Trileptal) 300 mg PO BID [facility] PRN Reason: Protocol Last Admin: 07/21/16 19:14 Dose: Not Given Polyethylene Glycol (Miralax) 17 gm PO DAILY PRN PRN Reason: Constipation Prasugrel (Effient) 10 mg PO DAILY [facility] Last Admin: 07/21/16 10:12 Dose: 10 mg Ramipril (Altace) 5 mg PO DAILY [facility] Last Admin: 07/21/16 10:11 Dose: 5 mg - Labs Labs: 07/20/16 06:45 07/20/16 06:00 PT 10.9 Seconds (9.9-11.8) 07/17/16 19:36 INR 1.01 (0.93-1.08) 07/17/16 19:36 APTT 27.5 Seconds (23.7-30.8) 07/17/16 19:36 Assessment and Plan - Assessment and Plan (Free Text) Plan: Assessment. CP s/p CT with PCIs Pericardial effusion s/p PCI, small on echo, possible cor perf during procedure> hemopericardium. Continued CP>re-cath 07/17/16: thrombosed OM stent> reopened with 2 additional Hector s/p acute ILMI with PCI 2nd OM 07/16/16 Residual large diag br. stenosis Smoker Discogenic disease/back surgery Plan: OOB as sarbjit./PT Continue metoprolol tart. 100 BID As per ID Monitor: labs, I/O, sats. Home soon with out-pt f/u.
--- NOTE | 2016-07-22 08:44 | CARD ---
APPROVED REPORT EXAM: Two-dimensional and M-mode echocardiogram with Doppler and color Doppler. INDICATION Pericardial Effusion pericardial effusion PERICARDIAL EFFUSION There is a small circumferential pericardial effusion. <Conclusion> There is a small circumferential pericardial effusion. No change from echo 07/19/16.
[2016-07-22] MEDS: Morphine 2 mg/ml ISec IVP PRN (08:56)
--- NOTE | 2016-07-22 10:24 | PN ---
DATE: 07/22/2016 The patient is in room 267, bed 1. The patient is seen in bed in no acute distress. PHYSICAL EXAMINATION: VITAL SIGNS: Temperature is 98, blood pressure is 150/90, respiratory rate of 18, heart rate of 108. HEENT: Unremarkable. NECK: Supple. LUNGS: Have decreased breath sounds. HEART: Normal S1, S2. ABDOMEN: Soft, nontender. LABORATORY EXAMINATION: Reveals a white count of 15,000, hemoglobin 11, platelets of 250. BUN of 14 , creatinine of 0.7. Procalcitonin is 0.76. Urinalysis is noted. Serology reveals urine for legion pako antigen is negative. Review of the orders reveals the sputum culture and urine cultures are pen ding. The blood cultures are also no growth. The patient is on p.o. doxycycline, IV meropenem and I V vancomycin. Chest x-ray is noted and the patient had a CAT scan of the chest also which reveals co nsolidation in both lungs, changes with small effusions, negative for PE. ASSESSMENT AND PLAN: A 41-year-old male with sepsis with bilateral lower lobe healthcare-associated pneumonia, possible gram-positive cocci, possible gram-negative mariana with elevated procalcitonin with ST-elevation myocardial infarction, status post cardiac catheterization and intervention in a heavy s moker and lumbar spine disk herniation, surgery in 2007, currently on vancomycin and meropenem day #3 , pending us culture results. We will repeat a procalcitonin. We will also order an HIV. Pending us final culture results. We will follow with you. The patient also had an echocardiogram which re vealed a small pericardial effusion. The addendum to the echo is noted. The patient with a left rona tricular ejection fraction of 55%, normal left ventricular wall thickness, normal overall ejection fr action and normal left ventricular size. Dr. Michele Hutchison's note from this morning is reviewed. We will follow with you. Stefan Norris MD cc: 350 TT: 07/22/2016 10:23:46 Confirmation # [id number] Dictation # [id number]
[2016-07-22] MEDS: Vancomycin 1gm in NS 250ml 250 ML IVPB SCH ×3 (13:06→23:54)
--- NOTE | 2016-07-23 00:28 | CP.PCM.PN ---
Subjective - Date & Time of Evaluation Date of Evaluation: 07/22/16 Time of Evaluation: 18:30 Objective - Vital Signs/Intake and Output Vital Signs (last 24 hours): Temp Pulse Resp BP Pulse Ox 99 F 109 H 18 124/86 98 07/22/16 17:51 07/22/16 18:00 07/22/16 17:51 07/22/16 17:51 07/21/16 06:59 Intake and Output: 07/22/16 07/23/16 18:59 06:59 Intake Total 1250 780 Output Total 950 Balance 1250 -170 - Medications Medications: Current Medications Acetaminophen (Tylenol 325mg Tab) 650 mg PO Q6H PRN PRN Reason: Fever >100.4 F Last Admin: 07/22/16 13:07 Dose: 650 mg Alprazolam (Xanax) 0.5 mg PO Q8 [facility] PRN Reason: Protocol Stop: 07/23/16 18:01 Last Admin: 07/22/16 21:04 Dose: 0.5 mg Aspirin (Aspirin) 325 mg PO DAILY [facility] Last Admin: 07/22/16 09:00 Dose: 325 mg Atorvastatin Calcium (Lipitor) 80 mg PO DIN [facility] Last Admin: 07/22/16 17:45 Dose: 80 mg Benzocaine/Menthol (Cepacol Sore Throat) 1 meera MT Q4H PRN PRN Reason: Sore Throat Last Admin: 07/17/16 19:14 Dose: 1 meera Doxycycline Hyclate (Doryx) 100 mg PO Q12 [facility] PRN Reason: Protocol Last Admin: 07/22/16 21:04 Dose: 100 mg Famotidine (Pepcid) 40 mg PO HS [facility] Last Admin: 07/22/16 21:04 Dose: 40 mg Sodium Chloride (Sodium Chloride 0.9%) 1,000 mls @ 75 mls/hr IV .[id number] [facility] Last Admin: 07/20/16 06:47 Dose: 75 mls/hr Vancomycin HCl (Vancomycin 1gm) 250 mls @ 167 mls/hr IVPB Q12H [facility] PRN Reason: Protocol Last Admin: 07/22/16 23:54 Dose: 167 mls/hr Meropenem 1 gm/ Sodium (Chloride) 100 mls @ 100 mls/hr IVPB Q8 [facility] PRN Reason: Protocol Stop: 07/26/16 22:01 Last Admin: 07/22/16 22:50 Dose: 100 mls/hr Metoprolol Tartrate (Lopressor) 100 mg PO BID [facility] Last Admin: 07/22/16 17:46 Dose: 100 mg Morphine Sulfate (Morphine) 2 mg IVP Q4 PRN PRN Reason: Pain, moderate (4-7) Last Admin: 07/22/16 08:56 Dose: 2 mg Oxcarbazepine (Trileptal) 300 mg PO BID [facility] PRN Reason: Protocol Last Admin: 07/22/16 17:45 Dose: 300 mg Polyethylene Glycol (Miralax) 17 gm PO DAILY PRN PRN Reason: Constipation Prasugrel (Effient) 10 mg PO DAILY [facility] Last Admin: 07/22/16 09:26 Dose: 10 mg Ramipril (Altace) 5 mg PO DAILY [facility] Last Admin: 07/22/16 10:55 Dose: 5 mg - Labs Labs: 07/20/16 06:45 07/20/16 06:00 PT 10.9 Seconds (9.9-11.8) 07/17/16 19:36 INR 1.01 (0.93-1.08) 07/17/16 19:36 APTT 27.5 Seconds (23.7-30.8) 07/17/16 19:36 Assessment and Plan (1) Acute myocardial infarction Assessment & Plan: S/P Stent Status: Acute (2) Sepsis Assessment & Plan: Improving Continue IV Merem/VAncomycin/Doxyxycline CBC with diff Status: Acute (3) Drug withdrawal Assessment & Plan: ANxiety DO Xanax Status: Acute
[2016-07-23] MEDS: Morphine 2 mg/ml ISec IVP PRN ×3 (03:55→22:18)
[2016-07-23 04:36] LABS: URINE BILIRUBIN NEGATIVE (NEGATIVE); URINE BLOOD NEGATIVE (NEGATIVE); URINE GLUCOSE (UA) NEGATIVE (NEGATIVE); URINE KETONE NEGATIVE (NEGATIVE); URINE LEUKOCYTE ESTERASE NEGATIVE Leu/uL (NEGATIVE); URINE PROTEIN TRACE mg/dL (<30 mg/dL)
[2016-07-23 04:38] LABS: URINE APPEARANCE CLEAR (CLEAR); URINE COLOR YELLOW (YELLOW)
[2016-07-23 04:46] LABS: URINE BACTERIA RARE (NEG); URINE EPITHELIAL CELLS 0 - 2 /hpf (0-5); URINE RBC 0 - 2 /hpf (0-2); URINE WBC 0 - 2 /hpf (0-6)
[2016-07-23] MEDS: Meropenem 1 GM in Sodium Chloride 0.9% 100 ML IVPB SCH (05:58)
[2016-07-23 07:35] LABS: ADD MANUAL DIFF? NO
[2016-07-23 07:45] LABS: BASO # 0.08 [, K/mm3] (0.0-2.0); BASO % 0.6 % (0.0-3.0); EOS # 0.2 (0.0-0.7); EOS % 1.7 % (1.5-5.0); GRAN % 71.3 % (50.0-68.0); HEMATOCRIT 35.6 % (42.0-52.0); LYMPH # 2.5 (1.2-3.4); LYMPH % 17.4 % (22.0-35.0); MEAN CELL VOLUME 94.2 fL (80.0-105.0); MEAN CORPUSCULAR HEMOGLOBIN 33.3 pg (25.0-35.0); MEAN CORPUSCULAR HGB CONC 35.4 g/dl (31.0-37.0); MEAN PLATELET VOLUME 10.8 fl (7.0-11.0); MONO # 1.3 (0.1-0.6); PLATELET COUNT 446 [, 10^3/uL] (120.0-450.0); RED CELL DISTRIBUTION WIDTH 13.3 % (11.5-14.5); WHITE BLOOD COUNT 14.2 [, 10^3/ul] (4.5-11.0)
--- NOTE | 2016-07-23 07:59 | CP.PCM.PN ---
Subjective - Date & Time of Evaluation Date of Evaluation: 07/23/16 Time of Evaluation: 08:00 - Subjective Subjective: Stable on 2R. No CP or SOB now. V/S noted. RSR/Sinus tachy. PE: Lungs: clear Cor.: S1S2 Abd.: soft Ext.: no edema Neuro.: alert I/E=6275/1550 ECG 07/19: Sinus tachycardia, LAHB, ILMI with persisting ST elevations F/U Echo 07/19: prelim: Nl. LV fx. with small peric effusion. 07/21 echo > no change in small peric. effusion CT Chest: noted BC x1 NG at 4 days Objective - Vital Signs/Intake and Output Vital Signs (last 24 hours): Temp Pulse Resp BP Pulse Ox 98.9 F 105 H 20 129/87 95 07/23/16 05:44 07/23/16 05:49 07/23/16 05:44 07/23/16 05:44 07/23/16 05:44 Intake and Output: 07/23/16 07/23/16 06:59 18:59 Intake Total 1680 Output Total 1550 Balance 130 - Medications Medications: Current Medications Acetaminophen (Tylenol 325mg Tab) 650 mg PO Q6H PRN PRN Reason: Fever >100.4 F Last Admin: 07/22/16 13:07 Dose: 650 mg Alprazolam (Xanax) 0.5 mg PO Q8 [facility] PRN Reason: Protocol Stop: 07/23/16 18:01 Last Admin: 07/23/16 05:58 Dose: 0.5 mg Aspirin (Aspirin) 325 mg PO DAILY [facility] Last Admin: 07/22/16 09:00 Dose: 325 mg Atorvastatin Calcium (Lipitor) 80 mg PO DIN [facility] Last Admin: 07/22/16 17:45 Dose: 80 mg Benzocaine/Menthol (Cepacol Sore Throat) 1 meera MT Q4H PRN PRN Reason: Sore Throat Last Admin: 07/17/16 19:14 Dose: 1 meera Doxycycline Hyclate (Doryx) 100 mg PO Q12 [facility] PRN Reason: Protocol Last Admin: 07/22/16 21:04 Dose: 100 mg Famotidine (Pepcid) 40 mg PO HS [facility] Last Admin: 07/22/16 21:04 Dose: 40 mg Sodium Chloride (Sodium Chloride 0.9%) 1,000 mls @ 75 mls/hr IV .[id number] [facility] Last Admin: 07/20/16 06:47 Dose: 75 mls/hr Vancomycin HCl (Vancomycin 1gm) 250 mls @ 167 mls/hr IVPB Q12H [facility] PRN Reason: Protocol Last Admin: 07/22/16 23:54 Dose: 167 mls/hr Meropenem 1 gm/ Sodium (Chloride) 100 mls @ 100 mls/hr IVPB Q8 [facility] PRN Reason: Protocol Stop: 07/26/16 22:01 Last Admin: 07/23/16 05:58 Dose: 100 mls/hr Metoprolol Tartrate (Lopressor) 100 mg PO BID [facility] Last Admin: 07/22/16 17:46 Dose: 100 mg Morphine Sulfate (Morphine) 2 mg IVP Q4 PRN PRN Reason: Pain, moderate (4-7) Last Admin: 07/23/16 03:55 Dose: 2 mg Oxcarbazepine (Trileptal) 300 mg PO BID [facility] PRN Reason: Protocol Last Admin: 07/22/16 17:45 Dose: 300 mg Polyethylene Glycol (Miralax) 17 gm PO DAILY PRN PRN Reason: Constipation Prasugrel (Effient) 10 mg PO DAILY [facility] Last Admin: 07/22/16 09:26 Dose: 10 mg Ramipril (Altace) 5 mg PO DAILY [facility] Last Admin: 07/22/16 10:55 Dose: 5 mg - Labs Labs: 07/23/16 07:00 07/20/16 06:00 PT 10.9 Seconds (9.9-11.8) 07/17/16 19:36 INR 1.01 (0.93-1.08) 07/17/16 19:36 APTT 27.5 Seconds (23.7-30.8) 07/17/16 19:36 Assessment and Plan - Assessment and Plan (Free Text) Plan: Assessment. CP s/p [place] with PCIs Pericardial effusion s/p PCI, small on echo, possible cor perf during procedure> hemopericardium. Continued CP>re-cath 07/17/16: thrombosed OM stent> reopened with 2 additional Hector s/p acute ILMI with PCI 2nd OM 07/16/16 Residual large diag br. stenosis Smoker Discogenic disease/back surgery Plan: OOB as sarbjit./PT Continue metoprolol tart. 100 BID As per ID Monitor: labs, I/O, sats. Home soon with out-pt f/u.
[2016-07-23 08:15] LABS: BLOOD UREA NITROGEN 12 mg/dL (7-21); CALCIUM 8.7 mg/dL (8.4-10.5); CARBON DIOXIDE 24 mmol/L (21-33); CHLORIDE 98 mmol/L (98-107); GFR AFRICAN-AMERICAN > 60; GLUCOSE,RANDOM 104 mg/dL (70-110); POTASSIUM 4.6 mmol/L (3.6-5.0); SODIUM 134 mmol/L (132-148)
--- NOTE | 2016-07-23 09:48 | RAD ---
HISTORY: CHEST PAIN. COMPARISON: Chest x-ray performed 07/16/16, CTA chest performed 07/19/16 TECHNIQUE: Chest, one view. FINDINGS: LUNGS: Small left pleural effusion and atelectasis/ infiltrate. No definite pneumothorax. Please note that chest x-ray has limited sensitivity for the detection of pulmonary masses. CARDIOVASCULAR: Cardiomegaly. OSSEOUS STRUCTURES: No acute osseous abnormality identified. VISUALIZED UPPER ABDOMEN: Unremarkable. OTHER FINDINGS: None. IMPRESSION: Cardiomegaly. Small left pleural effusion and atelectasis/ infiltrate.
--- NOTE | 2016-07-23 10:15 | CARD ---
APPROVED REPORT EKG Measurement Heart [id number] <Conclusion> Sinus tachycardia LAB RVCD ILMI, recent Diffuse mild ST elevations.
--- NOTE | 2016-07-23 12:08 | PN ---
DATE: 07/23/2016 The patient seen earlier today in 267, bed 1. The patient states generalized aches and pains. No fe vers. The patient was seen earlier by the patient's nurse caring for him at night and states he had an uneventful night. PHYSICAL EXAMINATION: VITAL SIGNS: Temperature is 98, T-max is 100.3, heart rate of 105, respiratory rate of 20. HEENT: Unremarkable. NECK: Supple. LUNGS: Have decreased breath sounds. HEART: Normal S1, S2. ABDOMEN: Soft and nontender. LABORATORY DATA: Reveals the patient's white count is 14,200, hemoglobin of 12 and platelets of 446. The patient has 71% granulocytosis. Coagulation is noted. INR of 1. D-dimer on the 12th was 0.19 , BUN of 12, creatinine of 0.7. Troponin is elevated at 5.52 and 2170 with a procalcitonin from yest erday 0.36. Urinalysis is unremarkable. Urine for Legionella antigen is negative. Review of the orders reveals HIV is pending and urine culture is pending and sputum culture is pendin g. The blood cultures are negative. The patient is on p.o. doxycycline, IV meropenem and IV vancomy juanpablo. Chest x-ray from this morning, small left pleural effusion, atelectasis/infiltrate. No definite pneu mothorax. Cardiomegaly. EKG from this morning reveals a QTC of 433, diffuse mild ST elevation, sinu s tachycardia. Dr. Greenfield's progress note from this morning is reviewed. He states that the assessme nt is chest pain, status post myocardial infarction with percutaneous coronary intervention, with per icardial effusion. Dr. Dionisio Mcpherson's is note is reviewed. ASSESSMENT AND PLAN: This is a 41-year-old male with sepsis, bilateral lower lobe healthcare-[facility] el[facility] pneumonia, possible gram-positive cocci, possible gram-negative mariana, with mild elevation of proca lcitonin, with ST elevation, myocardial infarction, status post cardiac catheterization in a heavy sm oker, lumbar disk disease, hernia surgery in 2007, currently on vancomycin and meropenem day #4. Rep eat procalcitonin from yesterday is now 0.36. We will discontinue the meropenem and discontinue the vancomycin and complete a short course of doxycycline. Stefan Norris MD cc: 350 TT: 07/23/2016 12:07:53 Confirmation # [id number] Dictation # [id number]
--- NOTE | 2016-07-23 14:13 | CP.PCM.PN ---
Subjective - Date & Time of Evaluation Date of Evaluation: 07/23/16 Time of Evaluation: 14:20 Objective - Vital Signs/Intake and Output Vital Signs (last 24 hours): Temp Pulse Resp BP Pulse Ox 99 F 107 H 22 129/82 95 07/23/16 12:00 07/23/16 12:00 07/23/16 12:00 07/23/16 12:00 07/23/16 05:44 Intake and Output: 07/23/16 07/23/16 06:59 18:59 Intake Total 1680 Output Total 1550 Balance 130 - Medications Medications: Current Medications Acetaminophen (Tylenol 325mg Tab) 650 mg PO Q6H PRN PRN Reason: Fever >100.4 F Last Admin: 07/22/16 13:07 Dose: 650 mg Alprazolam (Xanax) 0.5 mg PO Q8 [facility] PRN Reason: Protocol Stop: 07/23/16 18:01 Last Admin: 07/23/16 05:58 Dose: 0.5 mg Aspirin (Aspirin) 325 mg PO DAILY [facility] Last Admin: 07/23/16 09:08 Dose: 325 mg Atorvastatin Calcium (Lipitor) 80 mg PO DIN [facility] Last Admin: 07/22/16 17:45 Dose: 80 mg Benzocaine/Menthol (Cepacol Sore Throat) 1 meera MT Q4H PRN PRN Reason: Sore Throat Last Admin: 07/17/16 19:14 Dose: 1 meera Doxycycline Hyclate (Doryx) 100 mg PO Q12 [facility] PRN Reason: Protocol Last Admin: 07/23/16 09:08 Dose: 100 mg Famotidine (Pepcid) 40 mg PO HS [facility] Last Admin: 07/22/16 21:04 Dose: 40 mg Sodium Chloride (Sodium Chloride 0.9%) 1,000 mls @ 75 mls/hr IV .[id number] [facility] Last Admin: 07/20/16 06:47 Dose: 75 mls/hr Ketorolac Tromethamine (Toradol) 15 mg IVP ONCE ONE Stop: 07/23/16 14:10 Metoprolol Tartrate (Lopressor) 100 mg PO BID [facility] Last Admin: 07/23/16 09:09 Dose: 100 mg Morphine Sulfate (Morphine) 2 mg IVP Q4 PRN PRN Reason: Pain, moderate (4-7) Last Admin: 07/23/16 09:10 Dose: 2 mg Oxcarbazepine (Trileptal) 300 mg PO BID [facility] PRN Reason: Protocol Last Admin: 07/23/16 09:12 Dose: 300 mg Polyethylene Glycol (Miralax) 17 gm PO DAILY PRN PRN Reason: Constipation Prasugrel (Effient) 10 mg PO DAILY [facility] Last Admin: 07/23/16 09:09 Dose: 10 mg Ramipril (Altace) 5 mg PO DAILY [facility] Last Admin: 07/23/16 09:09 Dose: 5 mg - Labs Labs: 07/23/16 07:00 07/23/16 07:00 PT 10.9 Seconds (9.9-11.8) 07/17/16 19:36 INR 1.01 (0.93-1.08) 07/17/16 19:36 APTT 27.5 Seconds (23.7-30.8) 07/17/16 19:36 Assessment and Plan (1) Acute myocardial infarction Status: Acute (2) Sepsis Status: Acute (3) Drug withdrawal Status: Acute
--- NOTE | 2016-07-24 08:25 | CP.PCM.PN ---
Subjective - Date & Time of Evaluation Date of Evaluation: 07/24/16 Time of Evaluation: 08:00 - Subjective Subjective: Stable on 2R. No CP or SOB now. Still occasional twinges of pleuritic type discomfort. V/S noted. RSR/Sinus tachy. PE: Lungs: clear Cor.: S1S2 Abd.: soft Ext.: no edema Neuro.: alert I/B=[id number]/1550 ECG 07/23: Sinus tachycardia, LAHB, ILPMI with persisting ST elevations CXR 07/23: Small left pl. effusion with atelectasis/infiltrate F/U Echo 07/19: prelim: Nl. LV fx. with small peric effusion. 07/21 echo > no change in small peric. effusion CT Chest: noted BC x1 NG at 5 days Objective - Vital Signs/Intake and Output Vital Signs (last 24 hours): Temp Pulse Resp BP Pulse Ox 97.9 F 110 H 20 139/86 94 L 07/24/16 05:34 07/24/16 06:00 07/24/16 05:34 07/24/16 05:34 07/24/16 05:34 Intake and Output: 07/24/16 07/24/16 06:59 18:59 Intake Total 120 Balance 120 - Medications Medications: Current Medications Acetaminophen (Tylenol 325mg Tab) 650 mg PO Q6H PRN PRN Reason: Fever >100.4 F Last Admin: 07/22/16 13:07 Dose: 650 mg Aspirin (Aspirin) 325 mg PO DAILY [facility] Last Admin: 07/23/16 09:08 Dose: 325 mg Atorvastatin Calcium (Lipitor) 80 mg PO DIN [facility] Last Admin: 07/23/16 17:23 Dose: 80 mg Benzocaine/Menthol (Cepacol Sore Throat) 1 meera MT Q4H PRN PRN Reason: Sore Throat Last Admin: 07/17/16 19:14 Dose: 1 meera Doxycycline Hyclate (Doryx) 100 mg PO Q12 [facility] PRN Reason: Protocol Last Admin: 07/23/16 22:14 Dose: 100 mg Famotidine (Pepcid) 40 mg PO HS [facility] Last Admin: 07/23/16 22:14 Dose: 40 mg Sodium Chloride (Sodium Chloride 0.9%) 1,000 mls @ 75 mls/hr IV .[id number] [facility] Last Admin: 07/20/16 06:47 Dose: 75 mls/hr Metoprolol Tartrate (Lopressor) 100 mg PO BID [facility] Last Admin: 07/23/16 17:24 Dose: 100 mg Morphine Sulfate (Morphine) 2 mg IVP Q4 PRN PRN Reason: Pain, moderate (4-7) Last Admin: 07/23/16 22:18 Dose: 2 mg Ondansetron HCl (Zofran Inj) 4 mg IVP Q6H PRN PRN Reason: Nausea/Vomiting Last Admin: 07/23/16 19:02 Dose: 4 mg Oxcarbazepine (Trileptal) 300 mg PO BID [facility] PRN Reason: Protocol Last Admin: 07/23/16 17:23 Dose: 300 mg Polyethylene Glycol (Miralax) 17 gm PO DAILY PRN PRN Reason: Constipation Prasugrel (Effient) 10 mg PO DAILY [facility] Last Admin: 07/23/16 09:09 Dose: 10 mg Ramipril (Altace) 5 mg PO DAILY [facility] Last Admin: 07/23/16 09:09 Dose: 5 mg - Labs Labs: 07/23/16 07:00 07/23/16 07:00 PT 10.9 Seconds (9.9-11.8) 07/17/16 19:36 INR 1.01 (0.93-1.08) 07/17/16 19:36 APTT 27.5 Seconds (23.7-30.8) 07/17/16 19:36 Assessment and Plan - Assessment and Plan (Free Text) Plan: Assessment. CP s/p [place] with PCIs Pericardial effusion s/p PCI, small on echo, possible cor perf during procedure> hemopericardium. Continued CP>re-cath 07/17/16: thrombosed OM stent> reopened with 2 additional Hector s/p acute ILMI with PCI 2nd OM 07/16/16 Residual large diag br. stenosis Smoker Discogenic disease/back surgery Plan: OOB as sarbjit./PT Continue metoprolol tart. 100 BID As per ID > PO AB Monitor: labs, I/O, sats. Home soon with out-pt f/u. NSAID analgesics for mild pleuritic CP PRN No Smoking.
--- NOTE | 2016-07-24 15:28 | CP.PCM.PN ---
Subjective - Date & Time of Evaluation Date of Evaluation: 07/24/16 Time of Evaluation: 09:55 - Subjective Subjective: Patient is comfortable in bed, not in distress, no fevers, improved breathing, no cough. Objective - Vital Signs/Intake and Output Vital Signs (last 24 hours): Temp Pulse Resp BP Pulse Ox 97.9 F 110 H 20 139/86 94 L 07/24/16 05:34 07/24/16 06:00 07/24/16 05:34 07/24/16 05:34 07/24/16 05:34 Intake and Output: 07/24/16 07/24/16 06:59 18:59 Intake Total 120 Balance 120 - Medications Medications: Current Medications Acetaminophen (Tylenol 325mg Tab) 650 mg PO Q6H PRN PRN Reason: Fever >100.4 F Last Admin: 07/22/16 13:07 Dose: 650 mg Aspirin (Aspirin) 325 mg PO DAILY [facility] Last Admin: 07/23/16 09:08 Dose: 325 mg Atorvastatin Calcium (Lipitor) 80 mg PO DIN [facility] Last Admin: 07/23/16 17:23 Dose: 80 mg Benzocaine/Menthol (Cepacol Sore Throat) 1 meera MT Q4H PRN PRN Reason: Sore Throat Last Admin: 07/17/16 19:14 Dose: 1 meera Doxycycline Hyclate (Doryx) 100 mg PO Q12 [facility] PRN Reason: Protocol Last Admin: 07/23/16 22:14 Dose: 100 mg Famotidine (Pepcid) 40 mg PO HS [facility] Last Admin: 07/23/16 22:14 Dose: 40 mg Sodium Chloride (Sodium Chloride 0.9%) 1,000 mls @ 75 mls/hr IV .[id number] [facility] Last Admin: 07/20/16 06:47 Dose: 75 mls/hr Metoprolol Tartrate (Lopressor) 100 mg PO BID [facility] Last Admin: 07/23/16 17:24 Dose: 100 mg Morphine Sulfate (Morphine) 2 mg IVP Q4 PRN PRN Reason: Pain, moderate (4-7) Last Admin: 07/23/16 22:18 Dose: 2 mg Ondansetron HCl (Zofran Inj) 4 mg IVP Q6H PRN PRN Reason: Nausea/Vomiting Last Admin: 07/23/16 19:02 Dose: 4 mg Oxcarbazepine (Trileptal) 300 mg PO BID [facility] PRN Reason: Protocol Last Admin: 07/23/16 17:23 Dose: 300 mg Polyethylene Glycol (Miralax) 17 gm PO DAILY PRN PRN Reason: Constipation Prasugrel (Effient) 10 mg PO DAILY [facility] Last Admin: 07/23/16 09:09 Dose: 10 mg Ramipril (Altace) 5 mg PO DAILY [facility] Last Admin: 07/23/16 09:09 Dose: 5 mg - Labs Labs: 07/23/16 07:00 07/23/16 07:00 PT 10.9 Seconds (9.9-11.8) 07/17/16 19:36 INR 1.01 (0.93-1.08) 07/17/16 19:36 APTT 27.5 Seconds (23.7-30.8) 07/17/16 19:36 - Constitutional Appears: Non-toxic, No Acute Distress - Head Exam Head Exam: NORMAL INSPECTION - ENT Exam ENT Exam: Mucous Membranes Moist - Neck Exam Neck Exam: absent: Lymphadenopathy, Meningismus - Respiratory Exam Respiratory Exam: Decreased Breath Sounds - Cardiovascular Exam Cardiovascular Exam: +S1, +S2 - GI/Abdominal Exam GI & Abdominal Exam: Soft. absent: Tenderness Assessment and Plan - Assessment and Plan (Free Text) Plan: Assessment sepsis secondary to bilateral lower lobe healthcare-associated pneumonia, clinically improving ST elevation myocardial infarction S/P cardiac catheterization and intervention heavy smoking lumbar spine disc herniation s/p surgery in 2007 Plan continue Doxycycline (day 5) to complete a 7 day course Will continue to monitor clinically
[2016-07-24] MEDS: Morphine 2 mg/ml ISec IVP PRN (17:29)
[2016-07-24] MEDS ORDERED: Morphine 2 mg/ml ISec IVP STA (22:26)
--- NOTE | 2016-07-24 22:27 | CP.PCM.PN ---
Subjective - Date & Time of Evaluation Date of Evaluation: 07/24/16 Time of Evaluation: 22:26 - Subjective Subjective: Patient was seen at bedside because he complained of back pain. As per nurse morphine sulfate fell off MARS. Patient complains of pain in neck area and lower back area. 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 Has good control on bowels and bladder. This 41 year old white male was admitted with chest pain/acute myocardial infarction is S/P stent in circumflex. Objective - Vital Signs/Intake and Output Vital Signs (last 24 hours): Temp Pulse Resp BP Pulse Ox 99.1 F 107 H 20 136/94 H 94 L 07/24/16 18:00 07/24/16 18:00 07/24/16 18:00 07/24/16 18:00 07/24/16 05:34 - Medications Medications: Current Medications Acetaminophen (Tylenol 325mg Tab) 650 mg PO Q6H PRN PRN Reason: Fever >100.4 F Last Admin: 07/22/16 13:07 Dose: 650 mg Aspirin (Aspirin) 325 mg PO DAILY [facility] Last Admin: 07/24/16 09:12 Dose: 325 mg Atorvastatin Calcium (Lipitor) 80 mg PO DIN [facility] Last Admin: 07/24/16 16:54 Dose: 80 mg Benzocaine/Menthol (Cepacol Sore Throat) 1 meera MT Q4H PRN PRN Reason: Sore Throat Last Admin: 07/17/16 19:14 Dose: 1 meera Doxycycline Hyclate (Doryx) 100 mg PO Q12 [facility] PRN Reason: Protocol Last Admin: 07/24/16 09:12 Dose: 100 mg Famotidine (Pepcid) 40 mg PO HS [facility] Last Admin: 07/23/16 22:14 Dose: 40 mg Sodium Chloride (Sodium Chloride 0.9%) 1,000 mls @ 75 mls/hr IV .[id number] [facility] Last Admin: 07/20/16 06:47 Dose: 75 mls/hr Metoprolol Tartrate (Lopressor) 100 mg PO BID [facility] Last Admin: 07/24/16 16:55 Dose: 100 mg Ondansetron HCl (Zofran Inj) 4 mg IVP Q6H PRN PRN Reason: Nausea/Vomiting Last Admin: 03/19/17 19:02 Dose: 4 mg Oxcarbazepine (Trileptal) 300 mg PO BID [facility] PRN Reason: Protocol Last Admin: 07/24/16 16:55 Dose: 300 mg Polyethylene Glycol (Miralax) 17 gm PO DAILY PRN PRN Reason: Constipation Prasugrel (Effient) 10 mg PO DAILY [facility] Last Admin: 07/24/16 09:11 Dose: 10 mg Ramipril (Altace) 5 mg PO DAILY [facility] Last Admin: 07/24/16 09:12 Dose: 5 mg - Labs Labs: 07/23/16 07:00 07/23/16 07:00 PT 10.9 Seconds (9.9-11.8) 07/17/16 19:36 INR 1.01 (0.93-1.08) 07/17/16 19:36 APTT 27.5 Seconds (23.7-30.8) 07/17/16 19:36 - Constitutional Appears: Well, No Acute Distress - Head Exam Head Exam: ATRAUMATIC, NORMAL INSPECTION - Eye Exam Eye Exam: Normal appearance - ENT Exam ENT Exam: Normal External Ear Exam - Neck Exam Neck Exam: Normal Inspection - Respiratory Exam Respiratory Exam: NORMAL BREATHING PATTERN - Cardiovascular Exam Cardiovascular Exam: absent: JVD - Rectal Exam Rectal Exam: Deferred - Extremities Exam Extremities Exam: Normal Inspection - Back Exam Back Exam: NORMAL INSPECTION - Neurological Exam Neurological Exam: Alert, Oriented x3 - Psychiatric Exam Psychiatric exam: Normal Affect, Normal Mood - Skin Skin Exam: Normal Color Assessment and Plan - Assessment and Plan (Free Text) Assessment: A/P: Back pain. Acute myocardial infarction. S/P coronary stent. Tobacco dependence. Morphine 2 mg IV stat.
--- NOTE | 2016-07-24 23:21 | CP.PCM.PN ---
Subjective - Date & Time of Evaluation Date of Evaluation: 07/24/16 Time of Evaluation: 23:15 - Subjective Subjective: Seen and examined at the bed side. Sates feel better. Mild chest pain and back pain. Telemonitoring shows sinus tachycardia in lower 100's. Denies fever or chills. Also c/o Lower back pain with no rqadiation. denies urinary symptom. Objective - Vital Signs/Intake and Output Vital Signs (last 24 hours): Temp Pulse Resp BP Pulse Ox 99.1 F 107 H 20 136/94 H 94 L 07/24/16 18:00 07/24/16 18:00 07/24/16 18:00 07/24/16 18:00 07/24/16 05:34 Intake and Output: 07/24/16 07/25/16 18:59 06:59 Intake Total 240 Balance 240 - Medications Medications: Current Medications Acetaminophen (Tylenol 325mg Tab) 650 mg PO Q6H PRN PRN Reason: Fever >100.4 F Last Admin: 07/22/16 13:07 Dose: 650 mg Aspirin (Aspirin) 325 mg PO DAILY [facility] Last Admin: 07/24/16 09:12 Dose: 325 mg Atorvastatin Calcium (Lipitor) 80 mg PO DIN [facility] Last Admin: 07/24/16 16:54 Dose: 80 mg Benzocaine/Menthol (Cepacol Sore Throat) 1 meera MT Q4H PRN PRN Reason: Sore Throat Last Admin: 07/17/16 19:14 Dose: 1 meera Doxycycline Hyclate (Doryx) 100 mg PO Q12 [facility] PRN Reason: Protocol Last Admin: 07/24/16 22:40 Dose: 100 mg Famotidine (Pepcid) 40 mg PO HS [facility] Last Admin: 07/24/16 22:40 Dose: 40 mg Sodium Chloride (Sodium Chloride 0.9%) 1,000 mls @ 75 mls/hr IV .[id number] [facility] Last Admin: 07/20/16 06:47 Dose: 75 mls/hr Metoprolol Tartrate (Lopressor) 100 mg PO BID [facility] Last Admin: 07/24/16 16:55 Dose: 100 mg Ondansetron HCl (Zofran Inj) 4 mg IVP Q6H PRN PRN Reason: Nausea/Vomiting Last Admin: 07/23/16 19:02 Dose: 4 mg Oxcarbazepine (Trileptal) 300 mg PO BID [facility] PRN Reason: Protocol Last Admin: 07/24/16 16:55 Dose: 300 mg Polyethylene Glycol (Miralax) 17 gm PO DAILY PRN PRN Reason: Constipation Prasugrel (Effient) 10 mg PO DAILY [facility] Last Admin: 07/24/16 09:11 Dose: 10 mg Ramipril (Altace) 5 mg PO DAILY [facility] Last Admin: 07/24/16 09:12 Dose: 5 mg - Labs Labs: 07/23/16 07:00 07/23/16 07:00 PT 10.9 Seconds (9.9-11.8) 07/17/16 19:36 INR 1.01 (0.93-1.08) 07/17/16 19:36 APTT 27.5 Seconds (23.7-30.8) 07/17/16 19:36 - Constitutional Appears: Well, No Acute Distress - Head Exam Head Exam: ATRAUMATIC, NORMAL INSPECTION, NORMOCEPHALIC - Eye Exam Eye Exam: EOMI, Normal appearance, PERRL Pupil Exam: NORMAL ACCOMODATION, PERRL - ENT Exam ENT Exam: Mucous Membranes Moist, Normal Exam - Neck Exam Neck Exam: Full ROM, Normal Inspection. absent: Lymphadenopathy - Respiratory Exam Respiratory Exam: Clear to Ausculation Bilateral, NORMAL BREATHING PATTERN - Cardiovascular Exam Cardiovascular Exam: REGULAR RHYTHM, +S1, +S2. absent: Murmur - GI/Abdominal Exam GI & Abdominal Exam: Soft, Normal Bowel Sounds. absent: Tenderness - Extremities Exam Extremities Exam: Full ROM, Normal Capillary Refill, Normal Inspection. absent : Joint Swelling, Pedal Edema - Back Exam Back Exam: NORMAL INSPECTION - Neurological Exam Neurological Exam: Alert, Awake, CN II-XII Intact, Normal Gait, Oriented x3 - Psychiatric Exam Psychiatric exam: Normal Affect, Normal Mood - Skin Skin Exam: Dry, Intact, Normal Color, Warm Assessment and Plan (1) Acute myocardial infarction Assessment & Plan: S/P stents X2 Troponin trended down Continue Current Care Status: Acute (2) Sepsis Assessment & Plan: Still midl Leukocytosis Complete Doxycycline Monitor with CBC and for fever Status: Resolved (3) Drug withdrawal Status: Inactive (4) Chest pain Assessment & Plan: Pleuritic Tachycardia? Pericarditis Vs Musculoskeletal Pain Management Continue to Monitor Status: Acute
[2016-07-25 07:22] LABS: ADD MANUAL DIFF? NO
[2016-07-25 07:26] LABS: BASO # 0.04 [, K/mm3] (0.0-2.0); BASO % 0.3 % (0.0-3.0); EOS # 0.1 (0.0-0.7); EOS % 0.5 % (1.5-5.0); GRAN # 10.08 (1.4-6.5); GRAN % 73.3 % (50.0-68.0); HEMATOCRIT 33.7 % (42.0-52.0); LYMPH # 2.2 (1.2-3.4); LYMPH % 16.1 % (22.0-35.0); MEAN CELL VOLUME 93.9 fL (80.0-105.0); MEAN CORPUSCULAR HEMOGLOBIN 33.1 pg (25.0-35.0); MEAN CORPUSCULAR HGB CONC 35.3 g/dl (31.0-37.0); MEAN PLATELET VOLUME 10.6 fl (7.0-11.0); MONO # 1.4 (0.1-0.6); MONO % 9.8 % (1.0-6.0); PLATELET COUNT 597 [, 10^3/uL] (120.0-450.0); RED CELL DISTRIBUTION WIDTH 13.6 % (11.5-14.5); WHITE BLOOD COUNT 13.8 [, 10^3/ul] (4.5-11.0)
[2016-07-25 08:12] LABS: BLOOD UREA NITROGEN 16 mg/dL (7-21); CALCIUM 9.2 mg/dL (8.4-10.5); CARBON DIOXIDE 24 mmol/L (21-33); CHLORIDE 99 mmol/L (98-107); GFR AFRICAN-AMERICAN > 60; GLUCOSE,RANDOM 114 mg/dL (70-110); POTASSIUM 4.5 mmol/L (3.6-5.0); SODIUM 136 mmol/L (132-148)
--- NOTE | 2016-07-25 08:23 | CP.PCM.PN ---
Subjective - Date & Time of Evaluation Date of Evaluation: 07/25/16 Time of Evaluation: 08:00 - Subjective Subjective: Stable on 2R. No CP or SOB now. V/S noted. RSR/Sinus tachy. PE: Lungs: clear Cor.: S1S2 Abd.: soft Ext.: no edema Neuro.: alert ECG 07/23: Sinus tachycardia, LAHB, ILPMI with persisting ST elevations CXR 07/23: Small left pl. effusion with atelectasis/infiltrate F/U Echo 07/19: prelim: Nl. LV fx. with small peric effusion. 07/21 echo > no change in small peric. effusion CT Chest: noted BC x1 NG at 5 days Objective - Vital Signs/Intake and Output Vital Signs (last 24 hours): Temp Pulse Resp BP Pulse Ox 98.3 F 96 H 20 132/90 94 L 07/25/16 06:00 07/25/16 06:00 07/25/16 06:00 07/25/16 06:00 07/24/16 05:34 Intake and Output: 07/25/16 07/25/16 06:59 18:59 Intake Total 240 Balance 240 - Medications Medications: Current Medications Acetaminophen (Tylenol 325mg Tab) 650 mg PO Q6H PRN PRN Reason: Fever >100.4 F Last Admin: 07/22/16 13:07 Dose: 650 mg Aspirin (Aspirin) 325 mg PO DAILY [facility] Last Admin: 07/24/16 09:12 Dose: 325 mg Atorvastatin Calcium (Lipitor) 80 mg PO DIN [facility] Last Admin: 07/24/16 16:54 Dose: 80 mg Benzocaine/Menthol (Cepacol Sore Throat) 1 meera MT Q4H PRN PRN Reason: Sore Throat Last Admin: 07/17/16 19:14 Dose: 1 meera Doxycycline Hyclate (Doryx) 100 mg PO Q12 [facility] PRN Reason: Protocol Last Admin: 07/24/16 22:40 Dose: 100 mg Famotidine (Pepcid) 40 mg PO HS [facility] Last Admin: 07/24/16 22:40 Dose: 40 mg Sodium Chloride (Sodium Chloride 0.9%) 1,000 mls @ 75 mls/hr IV .[id number] [facility] Last Admin: 07/20/16 06:47 Dose: 75 mls/hr Metoprolol Tartrate (Lopressor) 100 mg PO BID [facility] Last Admin: 07/24/16 16:55 Dose: 100 mg Ondansetron HCl (Zofran Inj) 4 mg IVP Q6H PRN PRN Reason: Nausea/Vomiting Last Admin: 07/23/16 19:02 Dose: 4 mg Oxcarbazepine (Trileptal) 300 mg PO BID [facility] PRN Reason: Protocol Last Admin: 07/24/16 16:55 Dose: 300 mg Polyethylene Glycol (Miralax) 17 gm PO DAILY PRN PRN Reason: Constipation Prasugrel (Effient) 10 mg PO DAILY [facility] Last Admin: 07/24/16 09:11 Dose: 10 mg Ramipril (Altace) 5 mg PO DAILY [facility] Last Admin: 07/24/16 09:12 Dose: 5 mg - Labs Labs: 07/25/16 06:00 07/23/16 07:00 PT 10.9 Seconds (9.9-11.8) 07/17/16 19:36 INR 1.01 (0.93-1.08) 07/17/16 19:36 APTT 27.5 Seconds (23.7-30.8) 07/17/16 19:36 Assessment and Plan - Assessment and Plan (Free Text) Plan: Assessment. CP s/p CT with PCIs Pericardial effusion s/p PCI, small on echo, possible cor perf during procedure> hemopericardium. Continued CP>re-cath 07/17/16: thrombosed OM stent> reopened with 2 additional Hector s/p acute ILMI with PCI 2nd OM 07/16/16 Residual large diag br. stenosis Smoker Discogenic disease/back surgery/Chronic Pain Plan: OOB as sarbjit./PT Continue metoprolol tart. 100 BID As per ID > PO AB Monitor: labs, I/O, sats. Home soon with out-pt f/u. NSAID analgesics for mild pleuritic CP PRN No Smoking.
--- NOTE | 2016-07-25 11:47 | CP.PCM.PN ---
Subjective - Date & Time of Evaluation Date of Evaluation: 07/25/16 Time of Evaluation: 09:45 Objective - Vital Signs/Intake and Output Vital Signs (last 24 hours): Temp Pulse Resp BP Pulse Ox 98.3 F 98 H 20 129/78 94 L 07/25/16 06:00 07/25/16 10:51 07/25/16 06:00 07/25/16 10:51 07/24/16 05:34 Intake and Output: 07/25/16 07/25/16 06:59 18:59 Intake Total 240 Balance 240 - Medications Medications: Current Medications Acetaminophen (Tylenol 325mg Tab) 650 mg PO Q6H PRN PRN Reason: Fever >100.4 F Last Admin: 07/22/16 13:07 Dose: 650 mg Aspirin (Aspirin) 325 mg PO DAILY [facility] Last Admin: 07/25/16 10:52 Dose: 325 mg Atorvastatin Calcium (Lipitor) 80 mg PO DIN [facility] Last Admin: 07/24/16 16:54 Dose: 80 mg Benzocaine/Menthol (Cepacol Sore Throat) 1 meera MT Q4H PRN PRN Reason: Sore Throat Last Admin: 07/17/16 19:14 Dose: 1 meera Doxycycline Hyclate (Doryx) 100 mg PO Q12 [facility] PRN Reason: Protocol Last Admin: 07/25/16 10:51 Dose: 100 mg Famotidine (Pepcid) 40 mg PO HS [facility] Last Admin: 07/24/16 22:40 Dose: 40 mg Sodium Chloride (Sodium Chloride 0.9%) 1,000 mls @ 75 mls/hr IV .[id number] [facility] Last Admin: 07/20/16 06:47 Dose: 75 mls/hr Ibuprofen (Motrin Tab) 600 mg PO Q8 PRN PRN Reason: Pain, moderate (4-7) Metoprolol Tartrate (Lopressor) 100 mg PO BID [facility] Last Admin: 07/25/16 10:51 Dose: 100 mg Ondansetron HCl (Zofran Inj) 4 mg IVP Q6H PRN PRN Reason: Nausea/Vomiting Last Admin: 07/23/16 19:02 Dose: 4 mg Oxcarbazepine (Trileptal) 300 mg PO BID [facility] PRN Reason: Protocol Last Admin: 07/25/16 10:52 Dose: 300 mg Oxycodone/Acetaminophen (Percocet 5/325 Mg Tab) 2 tab PO Q6H PRN PRN Reason: Pain, severe (8-10) Stop: 07/28/16 10:10 Polyethylene Glycol (Miralax) 17 gm PO DAILY PRN PRN Reason: Constipation Prasugrel (Effient) 10 mg PO DAILY [facility] Last Admin: 07/25/16 10:53 Dose: 10 mg Ramipril (Altace) 5 mg PO DAILY [facility] Last Admin: 07/25/16 10:51 Dose: 5 mg - Labs Labs: 07/25/16 06:00 07/25/16 06:00 PT 10.9 Seconds (9.9-11.8) 07/17/16 19:36 INR 1.01 (0.93-1.08) 07/17/16 19:36 APTT 27.5 Seconds (23.7-30.8) 07/17/16 19:36 Assessment and Plan (1) Acute myocardial infarction Status: Acute (2) Sepsis Status: Resolved (3) Drug withdrawal Status: Inactive (4) Chest pain Status: Acute
--- NOTE | 2016-07-25 12:54 | CP.PCM.PN ---
Subjective - Date & Time of Evaluation Date of Evaluation: 07/25/16 Time of Evaluation: 09:00 - Subjective Subjective: No fevers overnight, comfortable, not in distress. Objective - Vital Signs/Intake and Output Vital Signs (last 24 hours): Temp Pulse Resp BP Pulse Ox 98.3 F 98 H 20 129/78 94 L 07/25/16 06:00 07/25/16 10:51 07/25/16 06:00 07/25/16 10:51 07/24/16 05:34 Intake and Output: 07/25/16 07/25/16 06:59 18:59 Intake Total 240 Balance 240 - Medications Medications: Current Medications Acetaminophen (Tylenol 325mg Tab) 650 mg PO Q6H PRN PRN Reason: Fever >100.4 F Last Admin: 07/22/16 13:07 Dose: 650 mg Aspirin (Aspirin) 325 mg PO DAILY [facility] Last Admin: 07/25/16 10:52 Dose: 325 mg Atorvastatin Calcium (Lipitor) 80 mg PO DIN [facility] Last Admin: 07/24/16 16:54 Dose: 80 mg Benzocaine/Menthol (Cepacol Sore Throat) 1 meera MT Q4H PRN PRN Reason: Sore Throat Last Admin: 07/17/16 19:14 Dose: 1 meera Doxycycline Hyclate (Doryx) 100 mg PO Q12 [facility] PRN Reason: Protocol Last Admin: 07/25/16 10:51 Dose: 100 mg Famotidine (Pepcid) 40 mg PO HS [facility] Last Admin: 07/24/16 22:40 Dose: 40 mg Sodium Chloride (Sodium Chloride 0.9%) 1,000 mls @ 75 mls/hr IV .[id number] [facility] Last Admin: 07/20/16 06:47 Dose: 75 mls/hr Ibuprofen (Motrin Tab) 600 mg PO Q8 PRN PRN Reason: Pain, moderate (4-7) Metoprolol Tartrate (Lopressor) 100 mg PO BID [facility] Last Admin: 07/25/16 10:51 Dose: 100 mg Ondansetron HCl (Zofran Inj) 4 mg IVP Q6H PRN PRN Reason: Nausea/Vomiting Last Admin: 07/23/16 19:02 Dose: 4 mg Oxcarbazepine (Trileptal) 300 mg PO BID [facility] PRN Reason: Protocol Last Admin: 07/25/16 10:52 Dose: 300 mg Oxycodone/Acetaminophen (Percocet 5/325 Mg Tab) 2 tab PO Q6H PRN PRN Reason: Pain, severe (8-10) Stop: 07/28/16 10:10 Polyethylene Glycol (Miralax) 17 gm PO DAILY PRN PRN Reason: Constipation Prasugrel (Effient) 10 mg PO DAILY [facility] Last Admin: 07/25/16 10:53 Dose: 10 mg Ramipril (Altace) 5 mg PO DAILY [facility] Last Admin: 07/25/16 10:51 Dose: 5 mg - Labs Labs: 07/25/16 06:00 07/25/16 06:00 PT 10.9 Seconds (9.9-11.8) 07/17/16 19:36 INR 1.01 (0.93-1.08) 07/17/16 19:36 APTT 27.5 Seconds (23.7-30.8) 07/17/16 19:36 - Constitutional Appears: Non-toxic, No Acute Distress - Head Exam Head Exam: NORMAL INSPECTION - Respiratory Exam Respiratory Exam: Decreased Breath Sounds - Cardiovascular Exam Cardiovascular Exam: +S1, +S2 - GI/Abdominal Exam GI & Abdominal Exam: Soft. absent: Tenderness Assessment and Plan - Assessment and Plan (Free Text) Plan: Assessment sepsis secondary to bilateral lower lobe healthcare-associated pneumonia; patient continues to clinically improve ST elevation myocardial infarction S/P cardiac catheterization and intervention heavy smoking lumbar spine disc herniation s/p surgery in 2007 Plan continue Doxycycline (day 6) to complete a 7 day course Will continue to follow clinically
[2016-07-25] MEDS: Oxycodone/Acetaminophen 5/325 mg Tab PO PRN ×2 (13:04→18:23)
[2016-07-26] MEDS: Oxycodone/Acetaminophen 5/325 mg Tab PO PRN ×2 (00:15→09:23)
[2016-07-26 07:25] LABS: BASO # 0.03 [, K/mm3] (0.0-2.0); BASO % 0.1 % (0.0-3.0); GRAN # 19.39 (1.4-6.5); GRAN % 86.6 % (50.0-68.0); LYMPH # 1.4 (1.2-3.4); MEAN CELL VOLUME 94.9 fL (80.0-105.0); MEAN CORPUSCULAR HEMOGLOBIN 33.8 pg (25.0-35.0); MEAN CORPUSCULAR HGB CONC 35.7 g/dl (31.0-37.0); MEAN PLATELET VOLUME 10.8 fl (7.0-11.0); MONO # 1.6 (0.1-0.6); MONO % 7.3 % (1.0-6.0); RED CELL DISTRIBUTION WIDTH 13.8 % (11.5-14.5); WHITE BLOOD COUNT 22.4 [, 10^3/ul] (4.5-11.0)
[2016-07-26 07:29] LABS: ADD MANUAL DIFF? NO
[2016-07-26 07:47] LABS: BLOOD UREA NITROGEN 16 mg/dL (7-21); CALCIUM 9.7 mg/dL (8.4-10.5); CARBON DIOXIDE 23 mmol/L (21-33); CHLORIDE 96 mmol/L (98-107); GFR AFRICAN-AMERICAN > 60; GLUCOSE,RANDOM 144 mg/dL (70-110); SODIUM 135 mmol/L (132-148)
[2016-07-26 07:51] LABS: PLATELET COUNT 753 [, 10^3/uL] (120.0-450.0)
--- NOTE | 2016-07-26 10:23 | PN ---
DATE: 07/26/2016 The patient is seen lying in bed on telemetry. He remains extremely anxious. He wants to be dischar ged. He has intermittent sinus tachycardia which appears to be associated with anxiety. He denies a ny chest pain at present. CURRENT MEDICATIONS: Include Altace 5 mg daily, aspirin 325 mg daily, doxycycline, Effient 10 mg arabella ly, Lipitor 80 mg daily, metoprolol 100 mg b.i.d., MiraLax p.r.n., Pepcid 40 mg daily, Percocet p.r.n ., Trileptal 300 mg b.i.d. OBJECTIVE: GENERAL: He is a middle-aged man who appears extremely anxious. His blood pressure is 164/100, puls e is 90-120, respirations are 22. He is afebrile. HEENT: No JVD. CHEST: Few scattered rhonchi. HEART: PMI in normal position. No rub heard. Mild tachycardia present. No murmur heard. ABDOMEN: Soft, nontender, normoactive bowel sounds. EXTREMITIES: No edema. DIAGNOSTIC DATA: Potassium 5.0, BUN and creatinine 16 and 0.4. Hematocrit 13.2 and 37.0. White cou nt 22.9, platelet count 753,000. IMPRESSION: 1. Status post inferolateral myocardial infarction treated with emergency percutaneous coronary inte rvention of left circumflex complicated by acute stent thrombosis and repeat intervention. 2. A small pericardial effusion, likely due to perforation with PCI wire, clinically stable. 3. Hospital-acquired pneumonia. 4. History of tobacco abuse. RECOMMENDATIONS: Altace will be increased for better blood pressure control. From a cardiac standpo int, he appears stable for discharge home today with close outpatient followup. He continues smoking , abstinence was encouraged, anxiolytic therapy may be necessary. Will continue to follow along as w nena as provide outpatient followup. Hector Dejesus MD cc: [id number] TT: 07/26/2016 10:22:39 Confirmation # [id number] Dictation # [id number] an
[2016-07-26 12:12] LABS: BASO # 0.03 [, K/mm3] (0.0-2.0); BASO % 0.1 % (0.0-3.0); GRAN # 20.52 (1.4-6.5); HEMATOCRIT 34.2 % (42.0-52.0); LYMPH # 2.4 (1.2-3.4); LYMPH % 9.7 % (22.0-35.0); MEAN CELL VOLUME 94.5 fL (80.0-105.0); MEAN CORPUSCULAR HEMOGLOBIN 33.4 pg (25.0-35.0); MEAN CORPUSCULAR HGB CONC 35.4 g/dl (31.0-37.0); MEAN PLATELET VOLUME 10.4 fl (7.0-11.0); MONO # 2.1 (0.1-0.6); MONO % 8.5 % (1.0-6.0); RED CELL DISTRIBUTION WIDTH 13.6 % (11.5-14.5)
[2016-07-26 12:14] LABS: GRAN % 81.7 % (50.0-68.0)
[2016-07-26 12:16] LABS: PLATELET COUNT 716 [, 10^3/uL] (120.0-450.0); WHITE BLOOD COUNT 25.1 [, 10^3/ul] (4.5-11.0)
[2016-07-26 12:17] LABS: ADD MANUAL DIFF? NO
[2016-07-26] MEDS ORDERED: Barium Sulfate Susp 2.1% w/v, 2.0% w/w 450 mL Bottle PO ONE (12:49)
--- NOTE | 2016-07-26 15:06 | CP.PCM.PN ---
Subjective - Date & Time of Evaluation Date of Evaluation: 07/26/16 Time of Evaluation: 09:10 - Subjective Subjective: Complaining of loose bowel movement last night and 2 times this morning; noted his WBC count to be more elevated than yesterday. No fevers. Objective - Vital Signs/Intake and Output Vital Signs (last 24 hours): Temp Pulse Resp BP Pulse Ox 98.2 F 87 20 97/49 L 94 L 07/26/16 11:55 07/26/16 11:55 07/26/16 11:55 07/26/16 11:55 07/24/16 05:34 Intake and Output: 07/26/16 07/26/16 06:59 18:59 Intake Total 120 Output Total 0 Balance 120 - Medications Medications: Current Medications Acetaminophen (Tylenol 325mg Tab) 650 mg PO Q6H PRN PRN Reason: Fever >100.4 F Last Admin: 07/25/16 22:04 Dose: 650 mg Aspirin (Aspirin) 325 mg PO DAILY [facility] Last Admin: 07/26/16 09:21 Dose: 325 mg Atorvastatin Calcium (Lipitor) 80 mg PO DIN [facility] Last Admin: 07/25/16 18:20 Dose: 80 mg Benzocaine/Menthol (Cepacol Sore Throat) 1 meera MT Q4H PRN PRN Reason: Sore Throat Last Admin: 07/17/16 19:14 Dose: 1 meera Famotidine (Pepcid) 40 mg PO HS [facility] Last Admin: 07/25/16 22:04 Dose: 40 mg Sodium Chloride (Sodium Chloride 0.9%) 1,000 mls @ 75 mls/hr IV .[id number] [facility] Last Admin: 07/20/16 06:47 Dose: 75 mls/hr Ibuprofen (Motrin Tab) 600 mg PO Q8 PRN PRN Reason: Pain, moderate (4-7) Metoprolol Tartrate (Lopressor) 100 mg PO BID [facility] Last Admin: 07/26/16 09:25 Dose: 100 mg Ondansetron HCl (Zofran Inj) 4 mg IVP Q6H PRN PRN Reason: Nausea/Vomiting Last Admin: 07/23/16 19:02 Dose: 4 mg Oxcarbazepine (Trileptal) 300 mg PO BID [facility] PRN Reason: Protocol Last Admin: 07/26/16 09:21 Dose: 300 mg Oxycodone/Acetaminophen (Percocet 5/325 Mg Tab) 2 tab PO Q6H PRN PRN Reason: Pain, severe (8-10) Stop: 07/28/16 10:10 Last Admin: 07/26/16 09:23 Dose: 2 tab Polyethylene Glycol (Miralax) 17 gm PO DAILY PRN PRN Reason: Constipation Prasugrel (Effient) 10 mg PO DAILY [facility] Last Admin: 07/26/16 09:20 Dose: 10 mg Ramipril (Altace) 10 mg PO DAILY [facility] Last Admin: 07/26/16 09:30 Dose: 10 mg - Labs Labs: 07/26/16 12:00 07/26/16 06:30 PT 10.9 Seconds (9.9-11.8) 07/17/16 19:36 INR 1.01 (0.93-1.08) 07/17/16 19:36 APTT 27.5 Seconds (23.7-30.8) 07/17/16 19:36 - Constitutional Appears: Non-toxic, No Acute Distress - Head Exam Head Exam: NORMAL INSPECTION - Neck Exam Neck Exam: absent: Meningismus - Respiratory Exam Respiratory Exam: Decreased Breath Sounds - Cardiovascular Exam Cardiovascular Exam: +S1, +S2 - GI/Abdominal Exam GI & Abdominal Exam: Soft. absent: Tenderness Assessment and Plan - Assessment and Plan (Free Text) Plan: Assessment severe sepsis with marked leukocytosis, consider C diff colitis; also being treated for bilateral lower lobe healthcare-associated pneumonia ST elevation myocardial infarction S/P cardiac catheterization and intervention heavy smoking lumbar spine disc herniation s/p surgery in 2007 Plan Will start PO Vancomycin and IV Flagyl pending stool for Cdiff, CT abdomen and pelvis and repeat PCT, Blood and urine cx; on Doxycycline (day 7) to complete a 7 day course Will continue to follow clinically
[2016-07-26] MEDS ORDERED: Iohexol 350 MG/100 ML VIAL ONE (15:24)
--- NOTE | 2016-07-26 16:36 | CT ---
PROCEDURE: CT Abdomen and Pelvis with contrast HISTORY: rule out intra-abdominal infection COMPARISON: 07/19/2016 TECHNIQUE: Contrast dose: Omnipaque 351 100 mL ; Readi-Cat 2 bottles Radiation dose: Total exam DLP = 444 mGy-cm. FINDINGS: LOWER THORAX: Dependent bilateral pleural effusions with passive compressive atelectasis and/or infiltrates at both posterior lower lobes. Pericardial effusion. The pleural and pericardial effusions appear slightly increased compared to before LIVER: Unremarkable. No gross lesion or ductal dilatation. GALLBLADDER AND BILE DUCTS: Unremarkable. PANCREAS: Unremarkable. No gross lesion or ductal dilatation. SPLEEN: Unremarkable. ADRENALS: Unremarkable. No mass. KIDNEYS AND URETERS: Unremarkable. No hydronephrosis. No solid mass. VASCULATURE: Unremarkable. No aortic aneurysm. BOWEL: Unremarkable. No obstruction. No gross mural thickening. APPENDIX: Normal appendix. PERITONEUM: Unremarkable. No free fluid. No free air. LYMPH NODES: Unremarkable. No enlarged lymph nodes. BLADDER: Unremarkable. REPRODUCTIVE: Unremarkable. BONES: No acute fracture. OTHER FINDINGS: None. IMPRESSION: No intra-abdominal abscess sees or phlegmon seen. No obstructing hydroureter or hydro nephrosis Bilateral dependent pleural effusions with passive compressive atelectasis and/or depended infiltrates the pleural effusion and pericardial effusions appear slightly increased compared to the prior study. If the patient has not yet had a cardiology consultation, consider this.
[2016-07-26] MEDS: Vancomycin 25 MG/ML PO SCH ×2 (17:45→22:04)
[2016-07-26] MEDS: metroNIDAZOLE IV 500 mg/100 ml 100 ML IVPB SCH (17:45)
--- NOTE | 2016-07-26 20:18 | CP.PCM.PN ---
Subjective - Date & Time of Evaluation Date of Evaluation: 07/26/16 Time of Evaluation: 20:05 Objective - Vital Signs/Intake and Output Vital Signs (last 24 hours): Temp Pulse Resp BP Pulse Ox 98.7 F 113 H 20 145/94 H 94 L 07/26/16 18:00 07/26/16 18:00 07/26/16 18:00 07/26/16 18:00 07/24/16 05:34 - Medications Medications: Current Medications Acetaminophen (Tylenol 325mg Tab) 650 mg PO Q6H PRN PRN Reason: Fever >100.4 F Last Admin: 07/25/16 22:04 Dose: 650 mg Aspirin (Aspirin) 325 mg PO DAILY [facility] Last Admin: 07/26/16 09:21 Dose: 325 mg Atorvastatin Calcium (Lipitor) 80 mg PO DIN [facility] Last Admin: 07/26/16 17:48 Dose: 80 mg Benzocaine/Menthol (Cepacol Sore Throat) 1 meera MT Q4H PRN PRN Reason: Sore Throat Last Admin: 07/17/16 19:14 Dose: 1 meera Famotidine (Pepcid) 40 mg PO HS [facility] Last Admin: 07/25/16 22:04 Dose: 40 mg Sodium Chloride (Sodium Chloride 0.9%) 1,000 mls @ 75 mls/hr IV .[id number] [facility] Last Admin: 07/20/16 06:47 Dose: 75 mls/hr Metronidazole (Flagyl) 100 mls @ 100 mls/hr IVPB Q8 [facility] PRN Reason: Protocol Stop: 08/02/16 15:16 Last Admin: 07/26/16 17:45 Dose: 100 mls/hr Ibuprofen (Motrin Tab) 600 mg PO Q8 PRN PRN Reason: Pain, moderate (4-7) Metoprolol Tartrate (Lopressor) 100 mg PO BID [facility] Last Admin: 07/26/16 17:49 Dose: 100 mg Ondansetron HCl (Zofran Inj) 4 mg IVP Q6H PRN PRN Reason: Nausea/Vomiting Last Admin: 07/23/16 19:02 Dose: 4 mg Oxcarbazepine (Trileptal) 300 mg PO BID [facility] PRN Reason: Protocol Last Admin: 07/26/16 17:45 Dose: 300 mg Oxycodone/Acetaminophen (Percocet 5/325 Mg Tab) 2 tab PO Q6H PRN PRN Reason: Pain, severe (8-10) Stop: 07/28/16 10:10 Last Admin: 07/26/16 09:23 Dose: 2 tab Polyethylene Glycol (Miralax) 17 gm PO DAILY PRN PRN Reason: Constipation Prasugrel (Effient) 10 mg PO DAILY [facility] Last Admin: 07/26/16 09:20 Dose: 10 mg Ramipril (Altace) 10 mg PO DAILY [facility] Last Admin: 07/26/16 09:30 Dose: 10 mg Vancomycin HCl (Vancocin 25 Mg/Ml (Oral Use)) 125 mg PO QID [facility] PRN Reason: Protocol Last Admin: 07/26/16 17:45 Dose: 125 mg - Labs Labs: 07/26/16 12:00 07/26/16 06:30 PT 10.9 Seconds (9.9-11.8) 07/17/16 19:36 INR 1.01 (0.93-1.08) 07/17/16 19:36 APTT 27.5 Seconds (23.7-30.8) 07/17/16 19:36 Assessment and Plan (1) Acute myocardial infarction Status: Acute (2) Sepsis Status: Resolved (3) Drug withdrawal Status: Inactive (4) Chest pain Status: Acute
[2016-07-27] MEDS: metroNIDAZOLE IV 500 mg/100 ml 100 ML IVPB SCH ×2 (05:23→13:05)
[2016-07-27 08:12] LABS: BASO # 0.04 [, K/mm3] (0.0-2.0); BASO % 0.2 % (0.0-3.0); EOS % 0.1 % (1.5-5.0); GRAN # 15.15 (1.4-6.5); GRAN % 83.2 % (50.0-68.0); HEMATOCRIT 35.1 % (42.0-52.0); LYMPH # 1.6 (1.2-3.4); LYMPH % 8.8 % (22.0-35.0); MEAN CELL VOLUME 94.4 fL (80.0-105.0); MEAN CORPUSCULAR HEMOGLOBIN 33.1 pg (25.0-35.0); MEAN PLATELET VOLUME 10.5 fl (7.0-11.0); MONO # 1.4 (0.1-0.6); MONO % 7.7 % (1.0-6.0); RED CELL DISTRIBUTION WIDTH 13.8 % (11.5-14.5); WHITE BLOOD COUNT 18.2 [, 10^3/ul] (4.5-11.0)
[2016-07-27 09:03] LABS: ADD MANUAL DIFF? NO; PLATELET COUNT 738 [, 10^3/uL] (120.0-450.0)
[2016-07-27 09:05] LABS: ALB/GLOB RATIO 0.7 (1.1-1.8); ALKALINE PHOSPHATASE 147 U/L (38-133); ALT/SGPT 129 U/L (7-56); AST/SGOT 132 U/L (15-59); BLOOD UREA NITROGEN 17 mg/dL (7-21); CALCIUM 9.4 mg/dL (8.4-10.5); CARBON DIOXIDE 25 mmol/L (21-33); CHLORIDE 93 mmol/L (98-107); GFR AFRICAN-AMERICAN > 60; GLUCOSE,RANDOM 118 mg/dL (70-110); POTASSIUM 4.5 mmol/L (3.6-5.0); SODIUM 133 mmol/L (132-148); TOTAL PROTEIN 8.9 g/dL (5.8-8.3)
[2016-07-27] MEDS: Oxycodone/Acetaminophen 5/325 mg Tab PO PRN ×2 (09:21→18:05)
[2016-07-27] MEDS: Vancomycin 25 MG/ML PO SCH ×4 (09:24→22:16)
[2016-07-27] MEDS ORDERED: Morphine 2 mg/ml ISec IVP STA (12:55)
--- NOTE | 2016-07-27 14:24 | CP.PCM.PN ---
Subjective - Date & Time of Evaluation Date of Evaluation: 07/27/16 Time of Evaluation: 09:35 - Subjective Subjective: Comfortable in bed, not in distress, afebrile, no bowel movements yet today. No abdominal pain, no nausea. Objective - Vital Signs/Intake and Output Vital Signs (last 24 hours): Temp Pulse Resp BP Pulse Ox 98.5 F 116 H 20 144/95 H 95 07/27/16 06:03 07/27/16 06:03 07/27/16 06:03 07/27/16 06:03 07/27/16 06:03 Intake and Output: 07/27/16 07/27/16 06:59 18:59 Intake Total 220 Output Total 400 Balance -180 - Medications Medications: Current Medications Acetaminophen (Tylenol 325mg Tab) 650 mg PO Q6H PRN PRN Reason: Fever >100.4 F Last Admin: 07/25/16 22:04 Dose: 650 mg Aspirin (Aspirin) 325 mg PO DAILY [facility] Last Admin: 07/26/16 09:21 Dose: 325 mg Atorvastatin Calcium (Lipitor) 80 mg PO DIN [facility] Last Admin: 07/26/16 17:48 Dose: 80 mg Benzocaine/Menthol (Cepacol Sore Throat) 1 meera MT Q4H PRN PRN Reason: Sore Throat Last Admin: 07/17/16 19:14 Dose: 1 meera Famotidine (Pepcid) 40 mg PO HS [facility] Last Admin: 07/26/16 22:04 Dose: 40 mg Sodium Chloride (Sodium Chloride 0.9%) 1,000 mls @ 75 mls/hr IV .[id number] [facility] Last Admin: 07/20/16 06:47 Dose: 75 mls/hr Metronidazole (Flagyl) 100 mls @ 100 mls/hr IVPB Q8 [facility] PRN Reason: Protocol Stop: 08/02/16 15:16 Last Admin: 07/27/16 05:23 Dose: 100 mls/hr Ibuprofen (Motrin Tab) 600 mg PO Q8 PRN PRN Reason: Pain, moderate (4-7) Metoprolol Tartrate (Lopressor) 100 mg PO BID [facility] Last Admin: 07/26/16 17:49 Dose: 100 mg Ondansetron HCl (Zofran Inj) 4 mg IVP Q6H PRN PRN Reason: Nausea/Vomiting Last Admin: 07/23/16 19:02 Dose: 4 mg Oxcarbazepine (Trileptal) 300 mg PO BID [facility] PRN Reason: Protocol Last Admin: 07/26/16 17:45 Dose: 300 mg Oxycodone/Acetaminophen (Percocet 5/325 Mg Tab) 2 tab PO Q6H PRN PRN Reason: Pain, severe (8-10) Stop: 07/28/16 10:10 Last Admin: 07/26/16 09:23 Dose: 2 tab Polyethylene Glycol (Miralax) 17 gm PO DAILY PRN PRN Reason: Constipation Prasugrel (Effient) 10 mg PO DAILY [facility] Last Admin: 07/26/16 09:20 Dose: 10 mg Ramipril (Altace) 10 mg PO DAILY [facility] Last Admin: 07/26/16 09:30 Dose: 10 mg Vancomycin HCl (Vancocin 25 Mg/Ml (Oral Use)) 125 mg PO QID [facility] PRN Reason: Protocol Last Admin: 07/26/16 22:04 Dose: 125 mg - Labs Labs: 07/26/16 12:00 07/26/16 06:30 PT 10.9 Seconds (9.9-11.8) 07/17/16 19:36 INR 1.01 (0.93-1.08) 07/17/16 19:36 APTT 27.5 Seconds (23.7-30.8) 07/17/16 19:36 - Constitutional Appears: Non-toxic, No Acute Distress - Head Exam Head Exam: NORMAL INSPECTION - ENT Exam ENT Exam: Mucous Membranes Moist - Neck Exam Neck Exam: absent: Lymphadenopathy, Meningismus - Respiratory Exam Respiratory Exam: Decreased Breath Sounds - Cardiovascular Exam Cardiovascular Exam: +S1, +S2 - GI/Abdominal Exam GI & Abdominal Exam: Soft. absent: Tenderness Assessment and Plan - Assessment and Plan (Free Text) Plan: Assessment severe sepsis with marked leukocytosis, R/O C diff colitis;S/P treatment for bilateral lower lobe healthcare-associated pneumonia ST elevation myocardial infarction S/P cardiac catheterization and intervention heavy smoking lumbar spine disc herniation s/p surgery in 2007 Plan continue PO Vancomycin (day 2) pending stool for Cdiff; reviewed CT abdomen and pelvis which did not show any acute pathology; follow up repeat PCT; Blood cx are negative so far; patient has completed 7 days of PO Doxycycline Will continue to follow clinically
--- NOTE | 2016-07-27 22:26 | CP.PCM.PN ---
Subjective - Date & Time of Evaluation Date of Evaluation: 07/27/16 Time of Evaluation: 05:10 Objective - Vital Signs/Intake and Output Vital Signs (last 24 hours): Temp Pulse Resp BP Pulse Ox 99.9 F H 111 H 20 124/74 95 07/27/16 18:00 07/27/16 18:00 07/27/16 18:00 07/27/16 18:00 07/27/16 06:03 - Medications Medications: Current Medications Acetaminophen (Tylenol 325mg Tab) 650 mg PO Q6H PRN PRN Reason: Fever >100.4 F Last Admin: 07/25/16 22:04 Dose: 650 mg Aspirin (Aspirin) 325 mg PO DAILY [facility] Last Admin: 07/27/16 09:20 Dose: 325 mg Atorvastatin Calcium (Lipitor) 80 mg PO DIN [facility] Last Admin: 07/27/16 17:17 Dose: 80 mg Benzocaine/Menthol (Cepacol Sore Throat) 1 meera MT Q4H PRN PRN Reason: Sore Throat Last Admin: 07/17/16 19:14 Dose: 1 meera Famotidine (Pepcid) 40 mg PO HS [facility] Last Admin: 07/27/16 22:15 Dose: 40 mg Sodium Chloride (Sodium Chloride 0.9%) 1,000 mls @ 75 mls/hr IV .[id number] [facility] Last Admin: 07/20/16 06:47 Dose: 75 mls/hr Ibuprofen (Motrin Tab) 600 mg PO Q8 PRN PRN Reason: Pain, moderate (4-7) Metoprolol Tartrate (Lopressor) 100 mg PO BID [facility] Last Admin: 07/27/16 17:17 Dose: 100 mg Ondansetron HCl (Zofran Inj) 4 mg IVP Q6H PRN PRN Reason: Nausea/Vomiting Last Admin: 07/23/16 19:02 Dose: 4 mg Oxcarbazepine (Trileptal) 300 mg PO BID [facility] PRN Reason: Protocol Last Admin: 07/27/16 17:22 Dose: 300 mg Oxycodone/Acetaminophen (Percocet 5/325 Mg Tab) 2 tab PO Q6H PRN PRN Reason: Pain, severe (8-10) Stop: 07/28/16 10:10 Last Admin: 07/27/16 18:05 Dose: 2 tab Polyethylene Glycol (Miralax) 17 gm PO DAILY PRN PRN Reason: Constipation Prasugrel (Effient) 10 mg PO DAILY [facility] Last Admin: 07/27/16 09:20 Dose: 10 mg Ramipril (Altace) 10 mg PO DAILY [facility] Last Admin: 07/27/16 09:20 Dose: 10 mg Vancomycin HCl (Vancocin 25 Mg/Ml (Oral Use)) 125 mg PO QID [facility] PRN Reason: Protocol Last Admin: 07/27/16 22:16 Dose: 125 mg - Labs Labs: 07/27/16 07:45 07/27/16 07:45 PT 10.9 Seconds (9.9-11.8) 07/17/16 19:36 INR 1.01 (0.93-1.08) 07/17/16 19:36 APTT 27.5 Seconds (23.7-30.8) 07/17/16 19:36 Assessment and Plan (1) Acute myocardial infarction Status: Acute (2) Sepsis Status: Resolved (3) Drug withdrawal Status: Inactive (4) Chest pain Status: Acute
--- NOTE | 2016-07-28 00:12 | CP.PCM.PN ---
Subjective - Date & Time of Evaluation Date of Evaluation: 07/28/16 Time of Evaluation: 00:11 - Subjective Subjective: Patient was evaluated at bedside because he complained of chest pain. 132/90 86 99.2* 98%. I took help of [employer] service , person who interpreted gave ID # [id number]. Patient states that he has pain across lower anterior chest, sharp, constant pain for more than past 2 hours, 7/10, similar pain that he came in with, had nausea, no sweating , no palpitation. This 89 year old male was admitted with retrosternal discomfort/Inferiolateral STEMI,S/P RCA stent. Has PMH of HTN, smoking, lumbar spine disc herniation,surgery for same. Objective - Vital Signs/Intake and Output Vital Signs (last 24 hours): Temp Pulse Resp BP Pulse Ox 99.9 F H 111 H 20 124/74 95 07/27/16 18:00 07/27/16 22:00 07/27/16 18:00 07/27/16 18:00 07/27/16 06:03 - Medications Medications: Current Medications Acetaminophen (Tylenol 325mg Tab) 650 mg PO Q6H PRN PRN Reason: Fever >100.4 F Last Admin: 07/25/16 22:04 Dose: 650 mg Aspirin (Aspirin) 325 mg PO DAILY [facility] Last Admin: 07/27/16 09:20 Dose: 325 mg Atorvastatin Calcium (Lipitor) 80 mg PO DIN [facility] Last Admin: 07/27/16 17:17 Dose: 80 mg Benzocaine/Menthol (Cepacol Sore Throat) 1 meera MT Q4H PRN PRN Reason: Sore Throat Last Admin: 07/17/16 19:14 Dose: 1 meera Famotidine (Pepcid) 40 mg PO HS [facility] Last Admin: 07/27/16 22:15 Dose: 40 mg Sodium Chloride (Sodium Chloride 0.9%) 1,000 mls @ 75 mls/hr IV .[id number] [facility] Last Admin: 07/20/16 06:47 Dose: 75 mls/hr Ibuprofen (Motrin Tab) 600 mg PO Q8 PRN PRN Reason: Pain, moderate (4-7) Metoprolol Tartrate (Lopressor) 100 mg PO BID [facility] Last Admin: 07/27/16 17:17 Dose: 100 mg Ondansetron HCl (Zofran Inj) 4 mg IVP Q6H PRN PRN Reason: Nausea/Vomiting Last Admin: 07/23/16 19:02 Dose: 4 mg Oxcarbazepine (Trileptal) 300 mg PO BID [facility] PRN Reason: Protocol Last Admin: 07/27/16 17:22 Dose: 300 mg Oxycodone/Acetaminophen (Percocet 5/325 Mg Tab) 2 tab PO Q6H PRN PRN Reason: Pain, severe (8-10) Stop: 07/28/16 10:10 Last Admin: 07/27/16 18:05 Dose: 2 tab Polyethylene Glycol (Miralax) 17 gm PO DAILY PRN PRN Reason: Constipation Prasugrel (Effient) 10 mg PO DAILY [facility] Last Admin: 07/27/16 09:20 Dose: 10 mg Ramipril (Altace) 10 mg PO DAILY [facility] Last Admin: 07/27/16 09:20 Dose: 10 mg Vancomycin HCl (Vancocin 25 Mg/Ml (Oral Use)) 125 mg PO QID [facility] PRN Reason: Protocol Last Admin: 07/27/16 22:16 Dose: 125 mg - Labs Labs: 07/27/16 07:45 07/27/16 07:45 PT 10.9 Seconds (9.9-11.8) 07/17/16 19:36 INR 1.01 (0.93-1.08) 07/17/16 19:36 APTT 27.5 Seconds (23.7-30.8) 07/17/16 19:36 - Constitutional Appears: Well, No Acute Distress - Head Exam Head Exam: ATRAUMATIC, NORMAL INSPECTION, NORMOCEPHALIC - Eye Exam Eye Exam: Normal appearance - ENT Exam ENT Exam: Normal External Ear Exam - Neck Exam Neck Exam: Normal Inspection - Respiratory Exam Respiratory Exam: Clear to Ausculation Bilateral, NORMAL BREATHING PATTERN. absent: Accessory Muscle Use, Chest Wall Tenderness, Rales, Rhonchi, Wheezes, Respiratory Distress, Stridor - Cardiovascular Exam Cardiovascular Exam: REGULAR RHYTHM, +S1 (Normal.), +S2 (Normal.). absent: JVD - Rectal Exam Rectal Exam: Deferred - Extremities Exam Extremities Exam: Normal Inspection - Neurological Exam Neurological Exam: Alert, Oriented x3 - Psychiatric Exam Psychiatric exam: Normal Affect, Normal Mood - Skin Skin Exam: Normal Color Assessment and Plan - Assessment and Plan (Free Text) Assessment: A/P: Chest pain. S/P RCA stent. S/P inferiolateral STEMI. Hypertension. Sublingual NTG-0.4 mg x 3. Morphine sulfate 4 mg IV x 1. EKG-NSR, RBBB. EKG in AM. Troponin stat. Troponin in AM. NPO. 02:28. Chest pain has subsided. Troponin-3.15.
[2016-07-28] MEDS ORDERED: Morphine 4 mg/ml ISec IVP STA (01:10)
--- NOTE | 2016-07-28 09:50 | CP.PCM.PN ---
Subjective - Date & Time of Evaluation Date of Evaluation: 07/28/16 Time of Evaluation: 08:00 - Subjective Subjective: Stable on 2R. Recurrence of CP last night. Now left lower chest discomfort. V/S noted. RSR/Sinus tachy. PE: Lungs: clear Cor.: S1S2 Abd.: soft Ext.: no edema Neuro.: alert Labs noted. trops trending down: 3.15, 2.61 ECG 07/23: Sinus tachycardia, LAHB, ILPMI with persisting ST elevations. No change CXR 07/23: Small left pl. effusion with atelectasis/infiltrate F/U Echo 07/19: prelim: Nl. LV fx. with small peric effusion. 07/21 echo > no change in small peric. effusion CT Chest: noted BC x1 NG at 5 days BC x2 NG at 24 hrs. Objective - Vital Signs/Intake and Output Vital Signs (last 24 hours): Temp Pulse Resp BP Pulse Ox 98.7 F 116 H 20 137/97 H 98 07/28/16 05:51 07/28/16 05:51 07/28/16 05:51 07/28/16 05:51 07/28/16 05:51 Intake and Output: 07/28/16 07/28/16 06:59 18:59 Intake Total 0 Output Total 200 Balance -200 - Medications Medications: Current Medications Acetaminophen (Tylenol 325mg Tab) 650 mg PO Q6H PRN PRN Reason: Fever >100.4 F Last Admin: 07/25/16 22:04 Dose: 650 mg Aspirin (Aspirin) 325 mg PO DAILY [facility] Last Admin: 07/27/16 09:20 Dose: 325 mg Atorvastatin Calcium (Lipitor) 80 mg PO DIN [facility] Last Admin: 07/27/16 17:17 Dose: 80 mg Benzocaine/Menthol (Cepacol Sore Throat) 1 meera MT Q4H PRN PRN Reason: Sore Throat Last Admin: 07/17/16 19:14 Dose: 1 meera Famotidine (Pepcid) 40 mg PO HS [facility] Last Admin: 07/27/16 22:15 Dose: 40 mg Sodium Chloride (Sodium Chloride 0.9%) 1,000 mls @ 75 mls/hr IV .[id number] [facility] Last Admin: 07/20/16 06:47 Dose: 75 mls/hr Ibuprofen (Motrin Tab) 600 mg PO Q8 PRN PRN Reason: Pain, moderate (4-7) Metoprolol Tartrate (Lopressor) 100 mg PO BID [facility] Last Admin: 07/27/16 17:17 Dose: 100 mg Ondansetron HCl (Zofran Inj) 4 mg IVP Q6H PRN PRN Reason: Nausea/Vomiting Last Admin: 07/28/16 05:12 Dose: 4 mg Oxcarbazepine (Trileptal) 300 mg PO BID [facility] PRN Reason: Protocol Last Admin: 07/27/16 17:22 Dose: 300 mg Oxycodone/Acetaminophen (Percocet 5/325 Mg Tab) 2 tab PO Q6H PRN PRN Reason: Pain, severe (8-10) Stop: 07/28/16 10:10 Last Admin: 07/27/16 18:05 Dose: 2 tab Polyethylene Glycol (Miralax) 17 gm PO DAILY PRN PRN Reason: Constipation Prasugrel (Effient) 10 mg PO DAILY [facility] Last Admin: 07/27/16 09:20 Dose: 10 mg Ramipril (Altace) 10 mg PO DAILY [facility] Last Admin: 07/27/16 09:20 Dose: 10 mg Vancomycin HCl (Vancocin 25 Mg/Ml (Oral Use)) 125 mg PO QID [facility] PRN Reason: Protocol Last Admin: 07/27/16 22:16 Dose: 125 mg - Labs Labs: 07/27/16 07:45 07/27/16 07:45 PT 10.9 Seconds (9.9-11.8) 07/17/16 19:36 INR 1.01 (0.93-1.08) 07/17/16 19:36 APTT 27.5 Seconds (23.7-30.8) 07/17/16 19:36 Assessment and Plan - Assessment and Plan (Free Text) Plan: Assessment. CP s/p NC with PCIs Pericardial effusion s/p PCI, small on echo, possible cor perf during procedure> hemopericardium. Continued CP>re-cath 07/17/16: thrombosed OM stent> reopened with 2 additional Hector s/p acute ILMI with PCI 2nd OM 07/16/16 Residual large diag br. stenosis Smoker Discogenic disease/back surgery/Chronic Pain Plan: Check echo Trend trops. CXR Motrin 600 TID trial
--- NOTE | 2016-07-28 09:57 | CP.PCM.PN ---
Subjective - Date & Time of Evaluation Date of Evaluation: 07/28/16 Time of Evaluation: 08:25 - Subjective Subjective: Patient developed left sided chest pain yesterday associated with nausea and shortness of breath. No fevers overnight. Currently has had no BM's yet but had 3-4 BM's the previous days which were loose according to the patient. Objective - Vital Signs/Intake and Output Vital Signs (last 24 hours): Temp Pulse Resp BP Pulse Ox 98.7 F 116 H 20 137/97 H 98 07/28/16 05:51 07/28/16 05:51 07/28/16 05:51 07/28/16 05:51 07/28/16 05:51 Intake and Output: 07/28/16 07/28/16 06:59 18:59 Intake Total 0 Output Total 200 Balance -200 - Medications Medications: Current Medications Acetaminophen (Tylenol 325mg Tab) 650 mg PO Q6H PRN PRN Reason: Fever >100.4 F Last Admin: 07/25/16 22:04 Dose: 650 mg Aspirin (Aspirin) 325 mg PO DAILY [facility] Last Admin: 07/27/16 09:20 Dose: 325 mg Atorvastatin Calcium (Lipitor) 80 mg PO DIN [facility] Last Admin: 07/27/16 17:17 Dose: 80 mg Benzocaine/Menthol (Cepacol Sore Throat) 1 meera MT Q4H PRN PRN Reason: Sore Throat Last Admin: 07/17/16 19:14 Dose: 1 meera Famotidine (Pepcid) 40 mg PO HS [facility] Last Admin: 07/27/16 22:15 Dose: 40 mg Sodium Chloride (Sodium Chloride 0.9%) 1,000 mls @ 75 mls/hr IV .[id number] [facility] Last Admin: 07/20/16 06:47 Dose: 75 mls/hr Ibuprofen (Motrin Tab) 600 mg PO Q8 PRN PRN Reason: Pain, moderate (4-7) Metoprolol Tartrate (Lopressor) 100 mg PO BID [facility] Last Admin: 07/27/16 17:17 Dose: 100 mg Ondansetron HCl (Zofran Inj) 4 mg IVP Q6H PRN PRN Reason: Nausea/Vomiting Last Admin: 07/28/16 05:12 Dose: 4 mg Oxcarbazepine (Trileptal) 300 mg PO BID [facility] PRN Reason: Protocol Last Admin: 07/27/16 17:22 Dose: 300 mg Oxycodone/Acetaminophen (Percocet 5/325 Mg Tab) 2 tab PO Q6H PRN PRN Reason: Pain, severe (8-10) Stop: 07/28/16 10:10 Last Admin: 07/27/16 18:05 Dose: 2 tab Polyethylene Glycol (Miralax) 17 gm PO DAILY PRN PRN Reason: Constipation Prasugrel (Effient) 10 mg PO DAILY [facility] Last Admin: 07/27/16 09:20 Dose: 10 mg Ramipril (Altace) 10 mg PO DAILY [facility] Last Admin: 07/27/16 09:20 Dose: 10 mg Vancomycin HCl (Vancocin 25 Mg/Ml (Oral Use)) 125 mg PO QID [facility] PRN Reason: Protocol Last Admin: 07/27/16 22:16 Dose: 125 mg - Labs Labs: 07/27/16 07:45 07/27/16 07:45 PT 10.9 Seconds (9.9-11.8) 07/17/16 19:36 INR 1.01 (0.93-1.08) 07/17/16 19:36 APTT 27.5 Seconds (23.7-30.8) 07/17/16 19:36 - Constitutional Appears: Non-toxic, No Acute Distress - Head Exam Head Exam: NORMAL INSPECTION - ENT Exam ENT Exam: Mucous Membranes Moist - Neck Exam Neck Exam: absent: Lymphadenopathy, Meningismus - Respiratory Exam Respiratory Exam: Decreased Breath Sounds - Cardiovascular Exam Cardiovascular Exam: +S1, +S2 - GI/Abdominal Exam GI & Abdominal Exam: Soft. absent: Tenderness Assessment and Plan - Assessment and Plan (Free Text) Plan: Assessment severe sepsis with marked leukocytosis, R/O C diff colitis;S/P treatment for bilateral lower lobe healthcare-associated pneumonia ST elevation myocardial infarction S/P cardiac catheterization and intervention heavy smoking lumbar spine disc herniation s/p surgery in 2007 Plan continue PO Vancomycin (day 3) pending stool for Cdiff - patient has no BM's now but had 3-4 loose BM's the previous days as per patient but no stool yet collected; reviewed CT abdomen and pelvis which did not show any acute pathology ; follow up repeat PCT; Blood cx are negative so far; patient has completed 7 days of PO Doxycycline Patient continues to be managed for his ST elevation myocardial infarction Will continue to follow clinically
[2016-07-28] MEDS: Vancomycin 25 MG/ML PO SCH ×4 (10:20→21:59)
[2016-07-28 11:35] LABS: ADD MANUAL DIFF? NO; BASO # 0.02 [, K/mm3] (0.0-2.0); BASO % 0.1 % (0.0-3.0); GRAN # 19.12 (1.4-6.5); HEMATOCRIT 31.8 % (42.0-52.0); LYMPH # 1.3 (1.2-3.4); LYMPH % 5.9 % (22.0-35.0); MEAN CELL VOLUME 93.8 fL (80.0-105.0); MEAN CORPUSCULAR HGB CONC 35.2 g/dl (31.0-37.0); MEAN PLATELET VOLUME 10.1 fl (7.0-11.0); MONO # 1.3 (0.1-0.6); RED CELL DISTRIBUTION WIDTH 13.8 % (11.5-14.5); WHITE BLOOD COUNT 21.7 [, 10^3/ul] (4.5-11.0)
[2016-07-28 11:38] LABS: PLATELET COUNT 823 [, 10^3/uL] (120.0-450.0)
[2016-07-28 11:44] LABS: ALB/GLOB RATIO 0.8 (1.1-1.8); ALKALINE PHOSPHATASE 119 U/L (38-133); ALT/SGPT 109 U/L (7-56); AST/SGOT 131 U/L (15-59); BILIRUBIN,TOTAL 0.8 mg/dL (0.2-1.3); BLOOD UREA NITROGEN 15 mg/dL (7-21); CARBON DIOXIDE 23 mmol/L (21-33); CHLORIDE 98 mmol/L (98-107); GFR AFRICAN-AMERICAN > 60; GLUCOSE,RANDOM 131 mg/dL (70-110); POTASSIUM 4.5 mmol/L (3.6-5.0); SODIUM 134 mmol/L (132-148); TOTAL PROTEIN 7.7 g/dL (5.8-8.3)
[2016-07-28] MEDS: Dextrose 5%/0.9% NS 1,000 ML IV SCH (12:24)
--- NOTE | 2016-07-28 13:18 | RAD ---
HISTORY: Chest pain COMPARISON: 07/23/2016 TECHNIQUE: Chest PA and lateral FINDINGS: LUNGS: There is interval worsening of left pleural effusion. The right lung is clear. PLEURA: No significant pleural effusion identified. No pneumothorax apparent. CARDIOVASCULAR: There is persistent mild cardiomegaly. OSSEOUS STRUCTURES: No significant abnormalities. VISUALIZED UPPER ABDOMEN: Normal. OTHER FINDINGS: None. IMPRESSION: Moderate pleural effusion, worse since the prior examination. Underlying airspace disease cannot be excluded.
--- NOTE | 2016-07-28 15:41 | CARD ---
APPROVED REPORT EXAM: Two-dimensional and M-mode echocardiogram with Doppler and color Doppler. INDICATION Chest Pain 2D DIMENSIONS Left Atrium (2D)3.4 (1.6-4.0cm)IVSd1.2 (0.7-1.1cm) LVDd4.7 (3.9-5.9cm)PWd1.3 (0.7-1.1cm) LVDs3.5 (2.5-4.0cm)FS (%) 25.7 % LVEF (%)50.6 (>50%) M-Mode DIMENSIONS Aortic Root3.10 (2.2-3.7cm)Aortic Cusp Exc.2.10 (1.5-2.0cm) Aortic Valve AoV Peak Qwumcbyo058.0cm/Jacob Peak GR.6mmHg Mitral Valve MV E Qxhnnegf20.2cm/sMV A Azejfymt33.3cm/sE/A ratio1.2 TDI E/Lateral E'0.0E/Medial E'0.0 Tricuspid Valve TR Peak Liclrjmo612wf/sRAP QYPZPKIC74lzExLM Peak Gr.21mmHg [id number] LEFT VENTRICLE The left ventricle is normal size. There is mild concentric left ventricular hypertrophy. The left ventricular function is normal. The left ventricular ejection fraction is within the normal range. There is normal LV segmental wall motion. RIGHT VENTRICLE The right ventricle is normal size. The right ventricular systolic function is normal. ATRIA The left atrium size is normal. The right atrium size is normal. The interatrial septum is intact with no evidence for an atrial septal defect. AORTIC VALVE The aortic valve is normal in structure. No aortic regurgitation is present. There is no aortic valvular stenosis. MITRAL VALVE The mitral valve is normal in structure. There is no mitral valve regurgitation noted. TRICUSPID VALVE The tricuspid valve is normal in structure. There is no tricuspid valve regurgitation noted. PULMONIC VALVE The pulmonary valve is normal in structure. GREAT VESSELS The aortic root is normal in size. The IVC is normal in size and collapses >50% with inspiration. PERICARDIAL EFFUSION There is small left pleural effusion. There is a small circumferential pericardial effusion. <Conclusion> Small pericardial effusion. Compared to study of 07/21/16, findings are unchanged.
--- NOTE | 2016-07-28 18:35 | CARD ---
APPROVED REPORT EKG Measurement Heart [id number] GA [id number] <Conclusion> Sinus tachycardia Possible Left atrial enlargement Lateral infarct, possibly acute Inferior-posterior infarct, possibly acute ACUTE [place] Abnormal ECG
--- NOTE | 2016-07-28 18:38 | CARD ---
APPROVED REPORT EKG Measurement Heart [id number] [place] 136P40 [id number] <Conclusion> Sinus tachycardia Possible Left atrial enlargement RSR' or QR pattern in V1 suggests right ventricular conduction delay Left anterior fascicular block Lateral infarct, age undetermined Inferior-posterior infarct, possibly acute ACUTE [place] Abnormal ECG
--- NOTE | 2016-07-29 00:30 | CP.PCM.PN ---
Subjective - Date & Time of Evaluation Date of Evaluation: 07/28/16 Time of Evaluation: 23:40 - Subjective Subjective: Patient developed left sided chest pain yesterday associated with nausea and shortness of breath. No fevers or chills overnight. Currently has had no BM's yet but had 3-4 BM's the previous days which were loose according to the patient. Objective - Vital Signs/Intake and Output Vital Signs (last 24 hours): Temp Pulse Resp BP Pulse Ox 97.6 F 86 20 119/84 98 07/28/16 18:00 07/28/16 18:17 07/28/16 18:00 07/28/16 18:17 07/28/16 05:51 Intake and Output: 07/28/16 07/29/16 18:59 06:59 Intake Total 300 600 Output Total 650 Balance -350 600 - Medications Medications: Current Medications Acetaminophen (Tylenol 325mg Tab) 650 mg PO Q6H PRN PRN Reason: Fever >100.4 F Last Admin: 07/25/16 22:04 Dose: 650 mg Aspirin (Ecotrin) 81 mg PO DAILY [facility] Last Admin: 07/28/16 10:14 Dose: 81 mg Atorvastatin Calcium (Lipitor) 80 mg PO DIN [facility] Last Admin: 07/28/16 18:16 Dose: 80 mg Benzocaine/Menthol (Cepacol Sore Throat) 1 meera MT Q4H PRN PRN Reason: Sore Throat Last Admin: 07/17/16 19:14 Dose: 1 meera Famotidine (Pepcid) 40 mg PO HS [facility] Last Admin: 07/28/16 21:33 Dose: 40 mg Sodium Chloride (Sodium Chloride 0.9%) 1,000 mls @ 75 mls/hr IV .[id number] [facility] Last Admin: 07/20/16 06:47 Dose: 75 mls/hr Dextrose/Sodium Chloride (Dextrose 5%/0.9% Ns 1000 Ml) 1,000 mls @ 100 mls/hr IV .Q10H [facility] Last Admin: 07/28/16 12:24 Dose: 100 mls/hr Ibuprofen (Motrin Tab) 600 mg PO TID [facility] Last Admin: 07/28/16 18:16 Dose: 600 mg Metoprolol Tartrate (Lopressor) 100 mg PO BID [facility] Last Admin: 07/28/16 18:17 Dose: 100 mg Ondansetron HCl (Zofran Inj) 4 mg IVP Q6H PRN PRN Reason: Nausea/Vomiting Last Admin: 07/28/16 05:12 Dose: 4 mg Oxcarbazepine (Trileptal) 300 mg PO BID [facility] PRN Reason: Protocol Last Admin: 07/28/16 18:17 Dose: 300 mg Polyethylene Glycol (Miralax) 17 gm PO DAILY PRN PRN Reason: Constipation Prasugrel (Effient) 10 mg PO DAILY [facility] Last Admin: 07/28/16 10:14 Dose: 10 mg Ramipril (Altace) 10 mg PO DAILY [facility] Last Admin: 07/28/16 10:15 Dose: 10 mg Vancomycin HCl (Vancocin 25 Mg/Ml (Oral Use)) 125 mg PO QID [facility] PRN Reason: Protocol Last Admin: 07/28/16 21:59 Dose: 125 mg - Labs Labs: 07/28/16 11:30 07/28/16 11:30 PT 10.9 Seconds (9.9-11.8) 07/17/16 19:36 INR 1.01 (0.93-1.08) 07/17/16 19:36 APTT 27.5 Seconds (23.7-30.8) 07/17/16 19:36 - Constitutional Appears: Well, Non-toxic, No Acute Distress - Head Exam Head Exam: ATRAUMATIC, NORMAL INSPECTION, NORMOCEPHALIC - Eye Exam Eye Exam: EOMI, Normal appearance, PERRL Pupil Exam: NORMAL ACCOMODATION, PERRL - ENT Exam ENT Exam: Mucous Membranes Moist, Normal Exam - Neck Exam Neck Exam: Full ROM, Normal Inspection. absent: Lymphadenopathy - Respiratory Exam Respiratory Exam: Clear to Ausculation Bilateral, NORMAL BREATHING PATTERN - Cardiovascular Exam Cardiovascular Exam: REGULAR RHYTHM, +S1, +S2. absent: Murmur - GI/Abdominal Exam GI & Abdominal Exam: Soft, Normal Bowel Sounds. absent: Tenderness - Extremities Exam Extremities Exam: Full ROM, Normal Capillary Refill, Normal Inspection. absent : Joint Swelling, Pedal Edema - Back Exam Back Exam: Full ROM, NORMAL INSPECTION. absent: CVA tenderness (L), CVA tenderness (R) - Neurological Exam Neurological Exam: Alert, Awake, CN II-XII Intact, Normal Gait, Oriented x3 - Psychiatric Exam Psychiatric exam: Normal Affect, Normal Mood - Skin Skin Exam: Dry, Intact, Normal Color, Warm Assessment and Plan (1) Acute myocardial infarction Assessment & Plan: Was complicated with Pericardial Effussion with possible Perforation. S/P stent on stent Continue Current Care Status: Resolved (2) Sepsis, CAP- Resolved Empiric RX for C. diff Colitis Assessment & Plan: Continue PO Vancomycin Status: Acute (3) Drug withdrawal Assessment & Plan: Tachycardia resoved Status: Resolved
[2016-07-29] MEDS: Dextrose 5%/0.9% NS 1,000 ML IV SCH ×4 (01:39→23:45)
--- NOTE | 2016-07-29 09:46 | PN ---
DATE: 07/29/2016 SUBJECTIVE: The patient is seen lying in bed on telemetry. He states he is comfortable. He has no further chest pain. He has had no cough either. He remains afebrile. A repeat echocardiogram revea led a persistent small pericardial effusion with some evidence of organization. No unexpected findin gs were seen. CURRENT MEDICATIONS: Include Altace 10 mg daily, IV fluids, Ecotrin 81 mg daily, Effient 10 mg daily , Lipitor 80 mg daily, Lopressor 100 mg b.i.d., Motrin, Pepcid, Trileptal. OBJECTIVE: GENERAL: He is a middle-aged man who appears comfortable at the present time. VITAL SIGNS: His blood pressure is 124/90 with a pulse of 90 in sinus. Respirations are 16. He is afebrile. HEENT: No JVD. CHEST: A few scattered rhonchi. HEART: PMI normal position. No pathologic murmur, gallops or rubs are heard. ABDOMEN: Soft, nontender, normoactive bowel sounds. EXTREMITIES: No edema. DIAGNOSTIC DATA: Troponin was 1.51. Last hemoglobin and hematocrit were 11.2 and 31.8 with a white count of 21.7, platelet count 823,000. Electrocardiogram reveals sinus rhythm with left anterior hem iblock. An inferoposterior wall myocardial infarction pattern is present. IMPRESSION: 1. Coronary artery disease, status post recent inferior lateral myocardial infarction with percutane ous coronary intervention of his left circumflex and acute thrombosis requiring repeat intervention a nd repeat stenting. 2. Small pericardial effusion, likely due to microperforation with intervention with cardiology wire s at second procedure. 3. History of tobacco abuse. 4. Hospital-acquired pneumonia. 5. Residual diagonal disease. RECOMMENDATIONS: From a cardiac standpoint, he appears stable for discharge home at this time. Smok ing cessation should be continued. His current medications should be continued as well. Close outpa tient followup will be arranged. Eventual staged PCI of his diagonal branch will be planned. Hector Dejesus MD cc: [id number] TT: 07/29/2016 09:45:29 Confirmation # [id number] Dictation # [id number]
--- NOTE | 2016-07-29 09:51 | PN ---
DATE: 07/29/2016 The patient is in bed in no acute distress, nontoxic in room 266, bed 2. The patient was seen torres blanco this morning. PHYSICAL EXAMINATION: VITAL SIGNS: Temperature is 98. Blood pressure is 120/80, respiratory rate 16. HEENT: Unremarkable. NECK: Supple. LUNGS: Have decreased breath sounds. HEART: Normal S1, S2. ABDOMEN: Soft, nontender. LABORATORY EXAMINATION : Reveals a white count of 21,000, hemoglobin of 11, platelets of 823. Coagu lation is noted. Chemistries reveal the BUN of 15, creatinine of 0.8, and procalcitonin is 0.37. Ur inalysis is noted. HIV is negative. Urine for legionella antigen is negative. Blood cultures are n egative. Urine cultures are negative. 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 Currently on p.o. vancomycin, and stool for Clostridium difficile is pending. The patient did have a CAT scan of the abdomen and pelvis on the . No evidence of retroperitonea l hematoma or fluid collection was noted. Yesterday's white count was 21,000 with hemoglobin of 11, with platelets of 823, with liver function test elevations. Differential in the white count is 88% granulocytosis. We will follow closely with you. The patient does not appear to be toxic. We will check on the stoo l for Clostridium difficile. Stefan Norris MD cc: [id number] TT: 07/29/2016 09:50:58 Confirmation # [id number] Dictation # [id number] jaymie
[2016-07-29] MEDS: Vancomycin 25 MG/ML PO SCH ×4 (10:17→21:18)
[2016-07-29 14:18] LABS: HEMATOCRIT 31.2 % (42.0-52.0); MEAN CELL VOLUME 95.4 fL (80.0-105.0); MEAN CORPUSCULAR HEMOGLOBIN 32.7 pg (25.0-35.0); MEAN CORPUSCULAR HGB CONC 34.3 g/dl (31.0-37.0); MEAN PLATELET VOLUME 10.1 fl (7.0-11.0); RED CELL DISTRIBUTION WIDTH 13.9 % (11.5-14.5); WHITE BLOOD COUNT 13.3 [, 10^3/ul] (4.5-11.0)
[2016-07-29 14:24] LABS: ALB/GLOB RATIO 0.7 (1.1-1.8); ALKALINE PHOSPHATASE 105 U/L (38-133); ALT/SGPT 136 U/L (7-56); AST/SGOT 152 U/L (15-59); BILIRUBIN,TOTAL 0.5 mg/dL (0.2-1.3); BLOOD UREA NITROGEN 10 mg/dL (7-21); CALCIUM 8.5 mg/dL (8.4-10.5); CARBON DIOXIDE 24 mmol/L (21-33); CHLORIDE 102 mmol/L (98-107); GFR AFRICAN-AMERICAN > 60; GLUCOSE,RANDOM 129 mg/dL (70-110); POTASSIUM 4.3 mmol/L (3.6-5.0); SODIUM 137 mmol/L (132-148); TOTAL PROTEIN 6.9 g/dL (5.8-8.3)
--- NOTE | 2016-07-29 14:55 | CARD ---
APPROVED REPORT EKG Measurement Heart [id number] NE 134P45 [id number] <Conclusion> Sinus tachycardia Possible Left atrial enlargement Left anterior fascicular block Lateral infarct, possibly acute Inferior-posterior infarct, possibly recent Abnormal ECG
--- NOTE | 2016-07-29 16:28 | RAD ---
HISTORY: inc wbc 19k COMPARISON: 07/28/2016 TECHNIQUE: Chest PA and lateral FINDINGS: LUNGS: There is a left retrocardiac opacity. The right lung is clear. PLEURA: There is a moderate left pleural effusion, slightly decreased in size since the prior examination. No significant right pleural effusion identified. No pneumothorax apparent. CARDIOVASCULAR: There is persistent moderate cardiomegaly OSSEOUS STRUCTURES: No significant abnormalities. VISUALIZED UPPER ABDOMEN: Normal. OTHER FINDINGS: None. IMPRESSION: Interval decrease in size of left pleural effusion. Persistent left retrocardiac opacity which may represent consolidation or atelectasis.
[2016-07-29 20:53] VITALS: RESP 20
--- NOTE | 2016-07-29 23:36 | CP.PCM.PN ---
Subjective - Date & Time of Evaluation Date of Evaluation: 07/29/16 Time of Evaluation: 20:00 - Subjective Subjective: Seen and examined at the bed side. states feeling better. denies any Chest pain, diarrhea, fever or chills. Tolerating diet welll Objective - Vital Signs/Intake and Output Vital Signs (last 24 hours): Temp Pulse Resp BP Pulse Ox 97.6 F 85 20 130/95 H 95 07/29/16 20:52 07/29/16 22:00 07/29/16 20:52 07/29/16 20:52 07/29/16 06:00 Intake and Output: 07/29/16 07/30/16 18:59 06:59 Intake Total 480 Output Total 400 Balance 80 - Medications Medications: Current Medications Acetaminophen (Tylenol 325mg Tab) 650 mg PO Q6H PRN PRN Reason: Fever >100.4 F Last Admin: 07/25/16 22:04 Dose: 650 mg Aspirin (Ecotrin) 81 mg PO DAILY [facility] Last Admin: 07/29/16 10:15 Dose: 81 mg Atorvastatin Calcium (Lipitor) 80 mg PO DIN [facility] Last Admin: 07/29/16 18:34 Dose: 80 mg Benzocaine/Menthol (Cepacol Sore Throat) 1 meera MT Q4H PRN PRN Reason: Sore Throat Last Admin: 07/17/16 19:14 Dose: 1 meera Famotidine (Pepcid) 40 mg PO HS [facility] Last Admin: 07/29/16 21:18 Dose: 40 mg Sodium Chloride (Sodium Chloride 0.9%) 1,000 mls @ 75 mls/hr IV .[id number] [facility] Last Admin: 07/20/16 06:47 Dose: 75 mls/hr Dextrose/Sodium Chloride (Dextrose 5%/0.9% Ns 1000 Ml) 1,000 mls @ 100 mls/hr IV .Q10H [facility] Last Admin: 07/29/16 18:37 Dose: 100 mls/hr Ibuprofen (Motrin Tab) 600 mg PO TID [facility] Last Admin: 07/29/16 18:35 Dose: 600 mg Metoprolol Tartrate (Lopressor) 100 mg PO BID [facility] Last Admin: 07/29/16 18:34 Dose: 100 mg Ondansetron HCl (Zofran Inj) 4 mg IVP Q6H PRN PRN Reason: Nausea/Vomiting Last Admin: 07/28/16 05:12 Dose: 4 mg Oxcarbazepine (Trileptal) 300 mg PO BID [facility] PRN Reason: Protocol Last Admin: 07/29/16 18:35 Dose: 300 mg Polyethylene Glycol (Miralax) 17 gm PO DAILY PRN PRN Reason: Constipation Prasugrel (Effient) 10 mg PO DAILY [facility] Last Admin: 07/29/16 10:15 Dose: 10 mg Ramipril (Altace) 10 mg PO DAILY [facility] Last Admin: 07/29/16 10:15 Dose: 10 mg Vancomycin HCl (Vancocin 25 Mg/Ml (Oral Use)) 125 mg PO QID [facility] PRN Reason: Protocol Last Admin: 07/29/16 21:18 Dose: 125 mg - Labs Labs: 07/29/16 14:10 07/29/16 14:10 PT 10.9 Seconds (9.9-11.8) 07/17/16 19:36 INR 1.01 (0.93-1.08) 07/17/16 19:36 APTT 27.5 Seconds (23.7-30.8) 07/17/16 19:36 - Constitutional Appears: Well, No Acute Distress - Head Exam Head Exam: ATRAUMATIC, NORMAL INSPECTION, NORMOCEPHALIC - Eye Exam Eye Exam: EOMI, Normal appearance, PERRL Pupil Exam: NORMAL ACCOMODATION, PERRL - ENT Exam ENT Exam: Mucous Membranes Moist, Normal Exam - Neck Exam Neck Exam: Full ROM, Normal Inspection. absent: Lymphadenopathy - Respiratory Exam Respiratory Exam: Clear to Ausculation Bilateral, NORMAL BREATHING PATTERN - Cardiovascular Exam Cardiovascular Exam: REGULAR RHYTHM, +S1, +S2. absent: Murmur - GI/Abdominal Exam GI & Abdominal Exam: Soft, Normal Bowel Sounds. absent: Tenderness - Extremities Exam Extremities Exam: absent: Joint Swelling, Pedal Edema - Back Exam Back Exam: NORMAL INSPECTION. absent: CVA tenderness (L), CVA tenderness (R) - Neurological Exam Neurological Exam: Alert, Awake, CN II-XII Intact, Normal Gait, Oriented x3 - Psychiatric Exam Psychiatric exam: Normal Affect, Normal Mood - Skin Skin Exam: Dry, Intact, Normal Color, Warm Assessment and Plan (1) Acute myocardial infarction Assessment & Plan: Was complicated with Pericardial Effussion with possible Perforation. S/P stent on stent Continue Current Care Status: Resolved (2) Sepsis Assessment & Plan: Resolved on RX for C.diff Colitis Continue PO Vancomycin Status: Acute (3) Drug withdrawal Assessment & Plan: Tachycardia resoved Status: Inactive
[2016-07-30 00:14] VITALS: O2SAT 96
[2016-07-30 06:59] LABS: BASO # 0.02 [, K/mm3] (0.0-2.0); BASO % 0.2 % (0.0-3.0); EOS # 0.1 (0.0-0.7); EOS % 0.8 % (1.5-5.0); GRAN # 9.03 (1.4-6.5); GRAN % 80.5 % (50.0-68.0); LYMPH # 1.4 (1.2-3.4); LYMPH % 12.4 % (22.0-35.0); MEAN CELL VOLUME 96.4 fL (80.0-105.0); MEAN CORPUSCULAR HEMOGLOBIN 32.8 pg (25.0-35.0); MEAN CORPUSCULAR HGB CONC 34.1 g/dl (31.0-37.0); MEAN PLATELET VOLUME 10.2 fl (7.0-11.0); MONO # 0.7 (0.1-0.6); MONO % 6.1 % (1.0-6.0); RED CELL DISTRIBUTION WIDTH 14.1 % (11.5-14.5); WHITE BLOOD COUNT 11.2 [, 10^3/ul] (4.5-11.0)
[2016-07-30 07:07] LABS: BLOOD UREA NITROGEN 8 mg/dL (7-21); CALCIUM 8.8 mg/dL (8.4-10.5); CARBON DIOXIDE 25 mmol/L (21-33); CHLORIDE 104 mmol/L (98-107); GFR AFRICAN-AMERICAN > 60; GLUCOSE,RANDOM 127 mg/dL (70-110); POTASSIUM 4.4 mmol/L (3.6-5.0); SODIUM 138 mmol/L (132-148)
[2016-07-30 07:09] LABS: ADD MANUAL DIFF? NO; PLATELET COUNT 799 [, 10^3/uL] (120.0-450.0)
--- NOTE | 2016-07-30 09:32 | PN ---
DATE: 07/30/2016 The patient is in bed, in no acute distress, nontoxic. PHYSICAL EXAMINATION: VITAL SIGNS: Temperature is 98, blood pressure is 119/70, respiratory rate of 18, a heart rate of 72 . HEENT: Unremarkable. NECK: Supple. LUNGS: Have decreased breath sounds. HEART: Normal S1, S2. ABDOMEN: Soft, nontender. LABORATORY EXAMINATION: Reveals a white count of 11,000, hemoglobin of 10. Chemistries reveals the BUN of 8, creatinine of 0.7. Procalcitonin 0.37. HIV is negative. Microbiology reveals the blood c ultures are negative, urine cultures are negative. This morning's white count is down to 11,200. The patient had a chest x-ray yesterday, moderate left pleural effusion, slightly decreased in size p rior exam, no significant right pleural effusion and persistent left retrocardiac opacity which may r epresent consolidation or atelectasis. Dr. Dionisio Mcpherson's note from yesterday is reviewed. The patie nt also had an ultrasound of the lower extremity, no evidence of DVT in the lower extremities. ASSESSMENT AND PLAN: A 41-year-old male with severe sepsis, marked leukocytosis, no Clostridium diff icile, no diarrhea and was treated for bilateral lower healthcare-associated pneumonia. The patient initially with ST elevation myocardial infarction, status post cardiac catheterization, a heavy smoke r, lumbar spine disk disease and status post surgery, disk herniation status post surgery in 2007, mi ld leukocytosis appears to be improving. Currently, the patient is on p.o. vancomycin, awaiting for the stool Clostridium difficile. We will check on the repeat blood cultures and will follow the whit e count. As of today, it is down to 11,200. The patient does need a workup because of the anemia an d an elevated platelets of 799 and GI and heme workup recommended. Stefan Norris MD cc: 350 TT: 07/30/2016 09:31:30 Confirmation # [id number] Dictation # [id number]
[2016-07-30] MEDS: Vancomycin 25 MG/ML PO SCH ×4 (09:58→21:30)
[2016-07-30] MEDS: Dextrose 5%/0.9% NS 1,000 ML IV SCH (10:00)
--- NOTE | 2016-07-30 10:59 | PN ---
DATE: 07/30/2016 SUBJECTIVE: The patient is seen lying in bed on telemetry. He states he feels well. He has no chest pain at present. He was ambulating yesterday. He remains afebrile. CURRENT MEDICATIONS: Include Altace 10 mg daily, aspirin once daily, Effient 10 mg daily, Lipitor 80 mg daily, metoprolol 100 mg b.i.d., MiraLax, Motrin p.r.n., Trileptal, and oral vancomycin. PHYSICAL EXAMINATION: GENERAL: He is a middle-aged man who appears comfortable at rest. VITAL SIGNS: His blood pressure is 120/70 with a pulse of 80-100 in sinus. Respirations are 16. He is afebrile. HEENT: No JVD. CHEST: Diminished breath sounds at the left base. HEART: PMI in normal position. No pathologic gallops, murmurs, or rubs are heard. ABDOMEN: Soft, nontender, normoactive bowel sounds. EXTREMITIES: No edema. DIAGNOSTIC DATA: Potassium 4.4. BUN and creatinine 8 and 0.7. White count 11.2, hemoglobin and hematocrit 10.9 and 32.0, platelet count 799,000. IMPRESSION: 1. Status post recent inferior lateral wall myocardial infarction and acute stent thrombosis. 2. Community-acquired pneumonia, improved, currently off antibiotics except for oral vancomycin. 3. Left pleural effusion. 4. Small pericardial effusion, unchanged. RECOMMENDATIONS: From cardiac standpoint, his current medication should continue. He does have mild elevations in his transaminases. This will need to be monitored as an outpatient. If they rise further, a statin therapy may need to be withheld. From a cardiac standpoint, he is stable for discharge home with outpatient followup. Smoking abstinence was encouraged. Staged PCI of the moderate-sized diagonal branch will be planned at a later date. We will continue to see as needed. Hector Dejesus MD cc: [id number] TT: 07/30/2016 10:58:11 Confirmation # [id number] Dictation # [id number] SENT[facility]
[2016-07-30 18:01] VITALS: BP 128/98
--- NOTE | 2016-07-30 20:20 | CP.PCM.DIS ---
Provider - Provider Date of Admission: 07/16/16 10:30 Attending physician: Dionisio Mcpherson MD Primary care physician: Paula Crain MD Time Spent in preparation of Discharge (in minutes): 35 Diagnosis - Discharge Diagnosis (1) Acute myocardial infarction Status: Resolved Priority: High (2) Sepsis Status: Acute (3) Drug withdrawal Status: Inactive Hospital Course - Lab Results Lab Results: Micro Results 07/26/16 13:03 Blood-Venous Blood Culture - Preliminary NO GROWTH AFTER 4 DAYS 07/26/16 13:03 Blood-Venous Blood Culture - Preliminary NO GROWTH AFTER 4 DAYS 07/27/16 18:01 Urine Urine Culture - Final No Growth (<1,000 CFU/ML) 07/23/16 04:00 Urine Urine Culture - Final No Growth (<1,000 CFU/ML) 07/18/16 10:00 Blood Blood Culture - Final NO GROWTH AFTER 5 DAYS 07/18/16 10:00 Blood Gram Stain - Final TEST NOT PERFORMED Most Recent Lab Values WBC 11.2 10^3/ul (4.5-11.0) H 07/30/16 06:10 RBC 3.32 10^6/uL (3.5-6.1) L 07/30/16 06:10 Hgb 10.9 gm/dL (14.0-18.0) L 07/30/16 06:10 Hct 32.0 % (42.0-52.0) L 07/30/16 06:10 MCV 96.4 fL (80.0-105.0) 07/30/16 06:10 MCH 32.8 pg (25.0-35.0) 07/30/16 06:10 MCHC 34.1 g/dl (31.0-37.0) 07/30/16 06:10 RDW 14.1 % (11.5-14.5) 07/30/16 06:10 Plt Count 799 10^3/uL (120.0-450.0) H* 07/30/16 06:10 MPV 10.2 fl (7.0-11.0) 07/30/16 06:10 Gran % 80.5 % (50.0-68.0) H 07/30/16 06:10 Lymph % (Auto) 12.4 % (22.0-35.0) L 07/30/16 06:10 [place] % (Auto) 6.1 % (1.0-6.0) H 07/30/16 06:10 Eos % (Auto) 0.8 % (1.5-5.0) L 07/30/16 06:10 Baso % (Auto) 0.2 % (0.0-3.0) 07/30/16 06:10 Gran # 9.03 (1.4-6.5) H 07/30/16 06:10 Lymph # 1.4 (1.2-3.4) 07/30/16 06:10 [place] # 0.7 (0.1-0.6) H 07/30/16 06:10 Eos # 0.1 (0.0-0.7) 07/30/16 06:10 Baso # 0.02 K/mm3 (0.0-2.0) 07/30/16 06:10 PT 10.9 Seconds (9.9-11.8) 07/17/16 19:36 INR 1.01 (0.93-1.08) 07/17/16 19:36 APTT 27.5 Seconds (23.7-30.8) 07/17/16 19:36 D-Dimer, Quantitative 0.19 mg/L FEU (0-0.50) 07/16/16 09:02 pCO2 27 mm/Hg (35-45) L 07/18/16 13:21 pO2 115.0 mm/Hg (80-100) H 07/18/16 13:21 HCO3 24.7 mmol/L (21-28) 07/18/16 13:21 ABG pH 7.57 (7.35-7.45) H 07/18/16 13:21 ABG Total CO2 25.5 mmol.L (22-28) 07/18/16 13:21 ABG O2 Saturation 98.7 % (95-98) H 07/18/16 13:21 ABG O2 Content 14.4 ML/dl (15-23) L 07/18/16 13:21 ABG Base Excess 3.2 mmol/L (-2.0-3.0) H 07/18/16 13:21 ABG Hemoglobin 10.5 g/dL (11.7-17.4) L 07/18/16 13:21 ABG Carboxyhemoglobin 2.1 % (0.5-1.5) H 07/18/16 13:21 POC ABG HHb (Measured) 1.3 % (0-5) 07/18/16 13:21 ABG Methemoglobin 0.7 % (0.0-3.0) 07/18/16 13:21 ABG O2 Capacity 14.6 mL/dl (16-24) L 07/18/16 13:21 Hgb O2 Saturation 96.0 % (95.0-98.0) 07/18/16 13:21 FiO2 100.0 % 07/18/16 13:21 Sodium 138 mmol/L (132-148) 07/30/16 06:10 Potassium 4.4 mmol/L (3.6-5.0) 07/30/16 06:10 Chloride 104 mmol/L (98-107) 07/30/16 06:10 Carbon Dioxide 25 mmol/L (21-33) 07/30/16 06:10 Anion Gap 13 (10-20) 07/30/16 06:10 BUN 8 mg/dL (7-21) 07/30/16 06:10 Creatinine 0.7 mg/dL (0.5-1.4) 07/30/16 06:10 Est GFR ( Amer) > 60 07/30/16 06:10 Est GFR (Non-Af Amer) > 60 07/30/16 06:10 POC Glucose (mg/dL) 103 mg/dL (65-110) 07/25/16 11:51 Random Glucose 127 mg/dL (70-110) H 07/30/16 06:10 Hemoglobin A1c 6.0 % (4.2-6.5) 07/17/16 05:50 Calcium 8.8 mg/dL (8.4-10.5) 07/30/16 06:10 Phosphorus 3.4 mg/dL (2.5-4.5) 07/20/16 06:00 Magnesium 2.5 mg/dL (1.7-2.2) H 07/20/16 06:00 Total Bilirubin 0.5 mg/dL (0.2-1.3) 07/29/16 14:10 AST 152 U/L (15-59) H 07/29/16 14:10 ALT 136 U/L (7-56) H 07/29/16 14:10 Alkaline Phosphatase 105 U/L (38-133) 07/29/16 14:10 Lactate Dehydrogenase 2717 U/L (333-699) H 07/18/16 07:45 Total Creatine Kinase 1534 U/L (35-230) H 07/18/16 07:45 CK-MB (CK-2) 33.4 ng/mL (0.0-3.6) H 07/18/16 07:45 CK-MB (CK-2) % 2.2 % (2.5-3.0) L 07/18/16 07:45 Troponin I 1.51 ng/mL H* D 07/29/16 06:15 Total Protein 6.9 g/dL (5.8-8.3) 07/29/16 14:10 Albumin 2.9 g/dL (3.0-4.8) L 07/29/16 14:10 Globulin 4.0 gm/dL 07/29/16 14:10 Albumin/Globulin Ratio 0.7 (1.1-1.8) L 07/29/16 14:10 Triglycerides 164 mg/dL (35-160) H 07/17/16 06:36 Cholesterol 118 mg/dL (130-200) L 07/17/16 06:36 LDL Cholesterol Direct 61 mg/dL (0-129) 07/17/16 06:36 HDL Cholesterol 30 mg/dL (29-60) 07/17/16 06:36 Procalcitonin 0.37 NG/ML (0.19-0.49) 07/27/16 07:45 TSH 3rd Generation 1.35 mIU/mL (0.46-4.68) 07/16/16 11:10 Urine Color Yellow (YELLOW) 07/23/16 04:00 Urine Appearance Clear (CLEAR) 07/23/16 04:00 Urine pH 7.0 (4.7-8.0) 07/23/16 04:00 Ur Specific [place] 1.020 (1.005-1.035) 07/23/16 04:00 Urine Protein Trace mg/dL (<30 mg/dL) H 07/23/16 04:00 Urine Glucose (UA) Negative mg/dL (NEGATIVE) 07/23/16 04:00 Urine Ketones Negative mg/dL (NEGATIVE) 07/23/16 04:00 Urine Blood Negative (NEGATIVE) 07/23/16 04:00 Urine Nitrate Negative (NEGATIVE) 07/23/16 04:00 Urine Bilirubin Negative (NEGATIVE) 07/23/16 04:00 Urine Urobilinogen 1.0 E.U./dL (<1 E.U./dL) H 07/23/16 04:00 Ur Leukocyte Esterase Negative [place]/uL (NEGATIVE) 07/23/16 04:00 Urine RBC 0 - 2 /hpf (0-2) 07/23/16 04:00 Urine WBC 0 - 2 /hpf (0-6) 07/23/16 04:00 Ur Epithelial Cells 0 - 2 /hpf (0-5) 07/23/16 04:00 Urine Bacteria Rare (NEG) 07/23/16 04:00 HIV 1&2 Ag/Ab, 4th Gen Nonreactive (Nonreactive) 07/22/16 10:30 Ur L.pneumophila Ag Negative (NEGATIVE) 07/20/16 11:58 Discharge Exam - Head Exam Head Exam: ATRAUMATIC, NORMAL INSPECTION, NORMOCEPHALIC Discharge Plan - Discharge Medications Prescriptions: Ramipril [Altace] 10 mg PO DAILY 30 Days Aspirin [Ecotrin] 81 mg PO DAILY 30 Days Prasugrel [Effient] 10 mg PO DAILY 30 Days metroNIDAZOLE [Flagyl] 500 mg PO Q8 #21 tab Atorvastatin [Lipitor] 80 mg PO DIN 30 Days Ibuprofen [Motrin Tab] 600 mg PO TID 7 Days - Follow Up Plan Condition: CRITICAL Disposition: HOME/ ROUTINE Instructions: Myocardial Infarction (DC), Coronary Artery Disease (DC), Chest Pain (DC), How to Stop Smoking (DC), Heart Healthy Diet (DC), Cigarette Smoking and Your Health (GEN), Sepsis (GEN), Community Acquired Pneumonia (DC), Leukocytosis (DC), Coronary Intravascular Stent Placement (DC) Referrals: Paula Crain MD [Primary Care Provider] -
[2016-07-30 21:07] VITALS: PULSE 89; TEMP 98
== END 2016-07-30 23:16 | disposition home or self-care (01) | DRG 246 ==
LOC: ED 08:17 → ERH 10:30 → CCU 11:38 → 2RNO 07-21 07:02
PROVIDERS: ADMIT Internal Medicine; ATTEND Internal Medicine
PROC: 027034Z Dilation of Coronary Artery, One Artery with Drug-eluting Intraluminal Device, Percutaneous Approach (ICD-10-PCS; principal; 2016-07-16)
PROC: 4A023N7 Measurement of Cardiac Sampling and Pressure, Left Heart, Percutaneous Approach (ICD-10-PCS; 2016-07-16)
PROC: B2011ZZ Plain Radiography of Multiple Coronary Arteries using Low Osmolar Contrast (ICD-10-PCS; 2016-07-16)
PROC: B2051ZZ Plain Radiography of Left Heart using Low Osmolar Contrast (ICD-10-PCS; 2016-07-16)
PROC: 027034Z Dilation of Coronary Artery, One Artery with Drug-eluting Intraluminal Device, Percutaneous Approach (ICD-10-PCS; 2016-07-17)
DX: I21.19 ST elevation (STEMI) myocardial infarction involving other coronary artery of inferior wall (principal); A41.9 Sepsis, unspecified organism; J90 Pleural effusion, not elsewhere classified; J18.9 Pneumonia, unspecified organism; I31.3 Pericardial effusion (noninflammatory); T82.867A Thrombosis due to cardiac prosthetic devices, implants and grafts, initial encounter; F19.939 Other psychoactive substance use, unspecified with withdrawal, unspecified; I10 Essential (primary) hypertension; I25.10 Atherosclerotic heart disease of native coronary artery without angina pectoris; F17.210 Nicotine dependence, cigarettes, uncomplicated; Y71.3 Surgical instruments, materials and cardiovascular devices (including sutures) associated with adverse incidents; R00.0 Tachycardia, unspecified; G89.18 Other acute postprocedural pain; R07.9 Chest pain, unspecified

== ENCOUNTER 2016-09-13 06:11 | Day surgery (SDC) | payer OTHER ==
[2016-09-11 10:17] VITALS: BMI 27.0
[2016-09-13] MEDS ORDERED: Iodixanol 320 MG/ML 100 ML BOTTLE IV ONE (06:36)
[2016-09-13] MEDS ORDERED: Phenylephrine 10 mg/ml Inj ONE (06:36)
[2016-09-13] MEDS ORDERED: Lidocaine 2% Inj (20ml) ONE (06:36)
[2016-09-13] MEDS ORDERED: Nitroglycerin 50mg in D5W 0 MG/0 ML BOTTLE IV ONE (06:36)
[2016-09-13] MEDS ORDERED: Iohexol 350mgl/ml 50 ML ONE (06:36)
[2016-09-13] MEDS ORDERED: Iodixanol 320 MG/ML 200 ML BOTTLE IV ONE (06:36)
[2016-09-13] MEDS ORDERED: Midazolam 2 MG/2 ML VIAL ONE ×2 (07:16→07:39)
[2016-09-13 07:50] VITALS: O2SAT 98
[2016-09-13] MEDS ORDERED: Sodium Chloride 0.9% 1,000 ML IV SCH (08:30)
--- NOTE | 2016-09-13 09:27 | CARDCATH ---
PROCEDURE DATE: 09/13/2016 HISTORY: This is a 41-year-old male with known coronary artery disease, status post recent inferior posterior wall myocardial infarction who underwent PCI of his left circumflex artery and suffered acu te stent thrombosis requiring repeat intervention. He has had persistent chest pain over the past se veral weeks. He does have known moderate-sized diagonal lesion with a significant lesion and repeat catheterization was advised to assess the status of his circumflex stents as well as plan a possible intervention on the diagonal branch. INDICATION: Persistent angina, known coronary artery disease. FINDINGS: HEMODYNAMICS: The aortic pressure was 130/90. The left ventricular pressure was not measured. CORONARY ANATOMY: 1. The left main stem was normal. 2. The left anterior descending artery had minimal irregularities. The first diagonal branch was mo derate to large size with an 80% proximal stenosis. 3. Left circumflex artery had widely patent stents in its mid and distal segment. One small obtuse marginal branch was slow filling in the mid portion of the vessel. VLAD grade 3 flow was noted in th e distal circumflex. 4. The right coronary artery was not injected. Prior catheterization revealed minimal disease. CORONARY INTERVENTION: 4000 units of intravenous heparin was administered and the ACT was greater t nicholson 270 seconds during the procedure. A 3.5 EBU guide catheter had been utilized for cannulation. T he lesion in the diagonal branch was easily crossed with a [place] wire. Following this, initial infl ations were performed with a 2.5 x 10 mm balloon. Following this, a 2.75 x 14 mm Resolute drug-eluti ng stent was advanced into the proximal diagonal branch and inflated to 12 atmospheres. There was 0% residual stenosis following the intervention. VLAD grade 3 flow was present following the procedure . CONCLUSION: 1. Successful percutaneous coronary intervention of first diagonal branch. 2. Patent left circumflex artery stents. RECOMMENDATIONS: Aspirin and Plavix therapy should be continued for at least 1 year. His beta block er, statin and TUNG inhibitor will be continued as well. Continued smoking abstinence and risk factor control will be recommended. Hector Dejesus MD cc:Erin Figueroa MD [id number] TT: 09/13/2016 09:26:50 tn
[2016-09-13] MEDS ORDERED: Metoprolol Succinate 100 mg XL Tab PO SCH (10:00)
--- NOTE | 2016-09-13 13:23 | CARD ---
APPROVED REPORT EKG Measurement Heart [id number] 140P4 [id number] <Conclusion> Normal sinus rhythm Left anterior fascicular block Possible Lateral infarct, age undetermined Inferior-posterior infarct, age undetermined STTW changes
[2016-09-13 13:39] LABS: HEMATOCRIT 40.3 % (42.0-52.0)
[2016-09-13 17:29] VITALS: BP 121/78; PULSE 91; RESP 20; TEMP 98.3
== END 2016-09-13 18:37 | disposition home or self-care (01) ==
LOC: CATH 06:11 → 2RSO 08:54 → CATH 18:37
PROVIDERS: ATTEND Internal Medicine Cardiovascular Disease
DX: I25.118 Atherosclerotic heart disease of native coronary artery with other forms of angina pectoris (principal); I25.2 Old myocardial infarction; I10 Essential (primary) hypertension
CPT/HCPCS: 36415; 85014; 85018; 85175; 86850; 86900; 93005; 99152; C1725; C1760; C1769 ×2; C1874; C1887; C2629; C9600; J1644 ×2; J2250; J3010; J7040 ×2; Q9967

== ENCOUNTER 2016-10-11 09:47 | Observation (INO) | payer OTHER ==
[2016-10-11 09:50] VITALS: BMI 27.3
--- NOTE | 2016-10-11 10:15 | ED PDOC ---
Arrival/HPI - General Chief Complaint: Chest Pain Time Seen by Provider: 10/11/16 10:15 Historian: Patient - History of Present Illness Narrative History of Present Illness (Text): 10/11/16 10:15 41 year old male whose past medical history includes 4 stents, presents to the emergency department with chest pain since yesterday. Patient states it is exertional, feels like a pressure. Denies shortness of breath. Time/Duration: 24 hours Symptom Onset: Sudden Symptom Course: Unchanged Quality: Pressure Past Medical History - Provider Review Nursing Documentation Reviewed: Yes - Infectious Disease Hx of Infectious Diseases: None - Tetanus Immunization Tetanus Immunization: Unknown - Cardiac Hx AL: Yes Hx Hypertension: Yes Hx Pacemaker: No - Hematological/Oncological Hx Blood Transfusions: No Hx Blood Transfusion Reaction: No - Integumentary Other/Comment: lump on left forehead pt stated "I have had that for years" 2cm x 2cm - Musculoskeletal/Rheumatological Hx Musculoskeletal Disorders: No - Psychiatric Hx Psychophysiologic Disorder: Yes Hx Depression: Yes Hx Emotional Abuse: No Hx Physical Abuse: No Hx Substance Use: No - Surgical History Hx Cardiac Catheterization: Yes Hx Coronary Stent: Yes - Anesthesia Hx Anesthesia: Yes Hx Anesthesia Reactions: No Hx Malignant Hyperthermia: No - Suicidal Assessment Feels Threatened In Home Enviroment: No Family/Social History Family/Social History: Unknown Family HX Smoking Status: Heavy Smoker > 10 Cigarettes Daily Hx Alcohol Use: No Hx Substance Use: No Hx Substance Use Treatment: No Allergies/Home Meds Allergies/Adverse Reactions: Allergies No Known Allergies Allergy (Verified 10/11/16 10:00) Home Medications: Home Meds Medication Instructions Recorded Confirmed amLODIPine [Norvasc] 5 mg PO QPM 07/16/16 10/11/16 Aspirin [Ecotrin] 81 mg PO QAM 09/11/16 10/11/16 Atorvastatin [Lipitor] 80 mg PO QAM 09/11/16 10/11/16 Metoprolol Succinate [Metoprolol 100 mg PO QPM 09/11/16 10/11/16 Succinate Xl] Prasugrel [Effient] 10 mg PO QAM 09/11/16 10/11/16 Ramipril [Altace] 10 mg PO QAM 09/11/16 10/11/16 Sertraline [Zoloft] 50 mg PO QPM 09/11/16 10/11/16 Review of Systems - Physician Review All systems were reviewed & negative as marked: Yes Physical Exam - Physical Exam Narrative Physical Exam (Text): - Review of Systems Constitutional: Normal. absent: Fatigue, Weight Change, Fevers Eyes: Normal ENT: Normal Respiratory: Normal absent: SOB, Cough, Sputum Cardiovascular: Chest pain absent: Palpitations, Syncope Gastrointestinal: Normal absent: Abdominal pain, Diarrhea, Nausea, Vomiting Genitourinary: Normal. absent: Dysuria, Frequency, Hematuria Musculoskeletal: Normal. absent: Arthralgias, Back Pain, Neck Pain Skin: Normal Neurological: Normal absent: Focal Weakness Endocrine: Normal Hemo/Lymphatic: Normal Psychiatric: Normal - Physical exam Patient appears age appropriate, speaking full sentences without difficulty - Systems Exam Head: Present: Atraumatic, Normocephalic Pupils: Present: PERRL Extraocular Muscles: Present: EOMI Conjunctiva: Present: Normal Mouth: Present: Moist Mucous Membranes Neck: Present: Normal Range of Motion. No: MIDLINE TENDERNESS, Paraspinal Tenderness Respiratory/Chest: Present: Clear to Auscultation, Good Air Exchange. No: Respiratory Distress, Accessory Muscle Use, Tachypneic Cardiovascular: Present: Regular Rate and Rhythm, Normal S1, S2, Peripheral Pulses Present. No: Murmurs Abdomen: Present: Normal Bowel Sounds, No: Tenderness, Peritoneal Signs, Rebound, Guarding, Distention Back: Present: Normal Inspection. No: Midline Tenderness, Paraspinal Tenderness Upper Extremity: Present: Normal Inspection. No: Cyanosis, Edema Lower Extremity: Present: Normal Inspection. No: Edema Neurological: Present: GCS=15, Speech Normal, cranial nerves II through XII fully intact with no cerebellar abnormality, neuro-sensory fully intact. No focal neurological deficits. Skin: Present: Warm, Dry, Normal Color. No: Rashes Lymphatic: Present: OX3, NI, NC Psychiatric: Present: Alert, Oriented x 3, Normal Insight, Normal Concentration Vital Signs Reviewed: Yes Vital Signs Temp Pulse Resp BP Pulse Ox 10/11/16 15:35 67 16 116/67 99 10/11/16 14:00 67 18 103/61 98 10/11/16 12:03 65 18 101/58 L 98 10/11/16 11:24 66 17 96/53 L 98 10/11/16 09:58 97.5 F L 77 18 129/83 98 Temperature: Afebrile Blood Pressure: Normal Pulse: Regular Respiratory Rate: Normal Appearance: Positive for: Well-Appearing, Non-Toxic Mental Status: Positive for: Alert and Oriented X 3 Medical Decision Making ED Course and Treatment: Impression: 41 year old male whose past medical history includes 4 stents, presents to the emergency department with chest pain since yesterday. On physical exam, patient has no acute findings. Differential Diagnosis include but are not limited to: ACS, PNA Plan: -- EKG, Chest x-ray -- Aspirin, NTG -- Labs -- Reassess and disposition Prior Visits: Notes and results from previous visits were reviewed. Patient was discharged from the hospital on 07/30/16 after being treated for acute AL. Progress Notes: EKG shows NSR at [address]-segment elevations, normal intervals. Interpreted by me. Repeat EKG shows no evolving changes. Interpreted by me. 10/11/16 11:[address] Dejesus who recommends observation in the hospital. 10/11/16 13:[address] Lemus, accepted pt to her service pt aware of and agrees with plan - Lab Interpretations Lab Results: 10/11/16 10:25 10/11/16 10:25 Lab Results 10/11/16 10:25: Sodium 137, Potassium 3.7, Chloride 103, Carbon Dioxide 24, Anion Gap 14, BUN 9, Creatinine 0.7, Est GFR ( Amer) > 60, Est GFR (Non- Af Amer) > 60, Random Glucose 133 H, Calcium 9.7, Total Bilirubin 0.7, AST 26, ALT 75 H, Alkaline Phosphatase 76, Lactate Dehydrogenase 297 L, Total Creatine Kinase 41, Troponin I < 0.01 D, Total Protein 7.2, Albumin 4.2, Globulin 3.0, Albumin/Globulin Ratio 1.4 10/11/16 10:25: PT 10.8, INR 1.00, APTT 28.1 10/11/16 10:25: WBC 13.0 H, RBC 4.37, Hgb 14.5, Hct 41.2 L, MCV 94.3, MCH 33.2, MCHC 35.2, RDW 13.4, Plt Count 282, MPV 10.5, Gran % 75.3 H, Lymph % (Auto) 17.1 L, [place] % (Auto) 6.9 H, Eos % (Auto) 0.5 L, Baso % (Auto) 0.2, Gran # 9.80 H, Lymph # 2.2, [place] # 0.9 H, Eos # 0.1, Baso # 0.03 - RAD Interpretation Radiology Orders: 10/11/16 10:09 CHEST PORTABLE [RAD] Stat - Medication Orders Current Medication Orders: Amlodipine Besylate (Norvasc) 5 mg PO DAILY ELOISA Aspirin (Ecotrin) 81 mg PO DAILY ELOISA Metoprolol Succinate (Toprol Xl) 100 mg PO BRK ELOISA Oxycodone/Acetaminophen (Percocet 5/325 Mg Tab) 1 tab PO Q4 PRN PRN Reason: Pain, moderate (4-7) Stop: 10/14/16 20:01 Prasugrel (Effient) 10 mg PO DAILY ELOISA Sertraline HCl (Zoloft) 100 mg PO DAILY ELOISA Discontinued Medications Aspirin (Aspirin Chewable) 324 mg PO STAT STA Stop: 10/11/16 10:22 Last Admin: 10/11/16 10:39 Dose: 324 mg Nitroglycerin (Nitrostat Sl Tab) 0.3 mg SL STAT STA Stop: 10/11/16 10:22 Last Admin: 10/11/16 10:39 Dose: 0.3 mg - Scribe Statement The provider has reviewed the documentation as recorded by the Shilo Galarza Provider Scribe Attestation: All medical record entries made by the Betoibgilberto were at my direction and personally dictated by me. I have reviewed the chart and agree that the record accurately reflects my personal performance of the history, physical exam, medical decision making, and the department course for this patient. I have also personally directed, reviewed, and agree with the discharge instructions and disposition. Disposition/Present on Arrival - Present on Arrival Any Indicators Present on Arrival: No History of DVT/PE: No History of Uncontrolled Diabetes: No Urinary Catheter: No History of Decub. Ulcer: No History Surgical Site Infection Following: None - Disposition Have Diagnosis and Disposition been Completed?: Yes Diagnosis: Chest pain Disposition: HOSPITALIZED Disposition Time: 12:00 Patient Plan: Observation Patient Problems: Current Active Problems Problem Status Onset Chest pain Acute Condition: FAIR
[2016-10-11 10:26] LABS: ADD MANUAL DIFF? NO
[2016-10-11 10:30] LABS: BASO # 0.03 K/mm3 (0.0-2.0); BASO % 0.2 % (0.0-3.0); EOS # 0.1 (0.0-0.7); EOS % 0.5 % (1.5-5.0); GRAN % 75.3 % (50.0-68.0); HEMATOCRIT 41.2 % (42.0-52.0); LYMPH # 2.2 (1.2-3.4); LYMPH % 17.1 % (22.0-35.0); MEAN CELL VOLUME 94.3 fL (80.0-105.0); MEAN CORPUSCULAR HEMOGLOBIN 33.2 pg (25.0-35.0); MEAN CORPUSCULAR HGB CONC 35.2 g/dl (31.0-37.0); MEAN PLATELET VOLUME 10.5 fl (7.0-11.0); MONO # 0.9 (0.1-0.6); MONO % 6.9 % (1.0-6.0); PLATELET COUNT 282 10^3/uL (120.0-450.0); RED CELL DISTRIBUTION WIDTH 13.4 % (11.5-14.5)
[2016-10-11 10:40] LABS: PARTIAL THROMBOPLASTIN TIME 28.1 Seconds (23.7-30.8)
[2016-10-11 10:41] LABS: ALB/GLOB RATIO 1.4 (1.1-1.8); ALKALINE PHOSPHATASE 76 U/L (38-133); ALT/SGPT 75 U/L (7-56); AST/SGOT 26 U/L (15-59); BILIRUBIN,TOTAL 0.7 mg/dL (0.2-1.3); BLOOD UREA NITROGEN 9 mg/dL (7-21); CALCIUM 9.7 mg/dL (8.4-10.5); CARBON DIOXIDE 24 mmol/L (21-33); CHLORIDE 103 mmol/L (98-107); GFR AFRICAN-AMERICAN > 60; GLUCOSE,RANDOM 133 mg/dL (70-110); POTASSIUM 3.7 mmol/L (3.6-5.0); SODIUM 137 mmol/L (132-148); TOTAL PROTEIN 7.2 g/dL (5.8-8.3)
--- NOTE | 2016-10-11 10:48 | RAD ---
HISTORY: chest pain COMPARISON: 07/29/2016 FINDINGS: LUNGS: No active pulmonary disease. PLEURA: No significant pleural effusion identified, no pneumothorax apparent. CARDIOVASCULAR: Normal. OSSEOUS STRUCTURES: No significant abnormalities. VISUALIZED UPPER ABDOMEN: Normal. OTHER FINDINGS: None. IMPRESSION: No active disease.
[2016-10-11 10:54] LABS: TROPONIN I < 0.01 ng/mL
--- NOTE | 2016-10-11 16:38 | CARD ---
APPROVED REPORT EKG Measurement Heart [id number] [id number] <Conclusion> Normal sinus rhythm Left axis deviation/LAHB Inferior-posterior infarct, age undetermined STTW changes
--- NOTE | 2016-10-11 16:52 | CON ---
DATE: 10/11/2016 REQUESTING PHYSICIAN: Dr. Mendoza. REASON FOR CONSULTATION: Chest pain. HISTORY OF PRESENT ILLNESS: This is a 41-year-old man well known to me with a history of coronary ar kit disease, status post recent myocardial infarction and multivessel stenting, who presented to the Emergency Room complaining of chest discomfort. He states he has had pain. His pain began yesterda y and describes this as, at times, pressure-like sensation, other times a pinching sensation in his c hest. He states his discomfort persisted throughout most of the day yesterday. His symptoms did see m to worsen to some degree with exertion. He had mild chest discomfort this morning and became ronnie rned, and presented to Emergency Room. He initially presented in July with an acute inferolateral m yocardial infarction. Underwent emergency catheterization and stenting of a large left circumflex ve ssel. He had recurrent pain the following day and was brought back to the general labor and found to have acute thrombosis of his stents. Balloon angioplasty was then performed. He had a prolonged hospita l stay with evidence of post-myocardial infarction pericarditis, which eventually resolved. He was b rought back last month for a staged PCI of his large diagonal branch, at which time this went unevent fully, and he was found to have a widely patent circumflex stent. PAST MEDICAL HISTORY: Notable for the problems mentioned above. He has a history of hypertension, h yperlipidemia. He was a smoker, but quit in July. He also has a history of lumbar and cervical dis k disease and has undergone prior back surgery. MEDICATIONS: At home include aspirin, Effient 10 mg daily, Lipitor 80 mg daily, ramipril 10 mg daily , amlodipine 5 mg daily, metoprolol 150 mg daily. ALLERGIES: None. SOCIAL HISTORY: As mentioned. He is , lives with his family. He denies alcohol abuse. FAMILY HISTORY: Both parents are alive and well. 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 REVIEW OF SYSTEMS: Ten-point review of systems is notable mainly for the problems mentioned above. PHYSICAL EXAMINATION: GENERAL: He is an anxious-appearing middle-aged man. VITAL SIGNS: His blood pressure is 101/60 with a pulse of 66, respirations are 16. He is afebrile. HEENT: Normocephalic, atraumatic. NECK: Supple, no JVD noted. CHEST: Few scattered rhonchi heard. HEART: PMI in normal position. No pathologic murmur or gallops noted. ABDOMEN: Soft, nontender, normoactive bowel sounds. EXTREMITIES: No clubbing, cyanosis, or edema. SKIN: Warm and dry. PSYCHIATRIC: Mild anxiety, but otherwise normal mood and affect. NEUROLOGIC: Alert and oriented x 3. No gross motor or sensory deficits appreciated. DIAGNOSTIC DATA: Initial troponin is negative. CK is 41, potassium 3.7, BUN and creatinine 9 and 0. 7. White count 13.0; hemoglobin and hematocrit of 14.5 and 41.2; with a platelet count of 282,000. Electrocardiogram reveals sinus rhythm with inferior wall myocardial infarction pattern and prominent T waves across the precardium, which are unchanged from prior tracings. Chest x-ray reveals normal cardiac silhouette with clear lung barboza. IMPRESSION: 1. Chest pain, etiology uncertain. Some aspects of his pain sound suspicious for a cardiac cause; h owever, some component also appears somewhat atypical. He does have significant anxiety, which may p ossibly be contributing to his current symptomatology. 2. Coronary artery disease, status post remote myocardial infarction and multivessel percutaneous co ronary intervention. 3. History of hypertension, hyperlipidemia. RECOMMENDATIONS: At this time, admission to observation floor would be reasonable. Followup enzymes will be obtained. If he has recurrent chest pain, electrocardiogram can be repeated. Unless he has clear exertional symptoms or a pattern more consistent with true angina, I would recommend deferring catheterization at this time and continue with his current medications and some anxiolytic therapy, as well. Thank you for this consultation. I am happy to follow him through his hospital course. Hector Dejesus MD cc: [id number] TT: 10/11/2016 16:51:32 Confirmation # [id number] Dictation # [id number] gunnar
--- NOTE | 2016-10-11 18:25 | CT ---
PROCEDURE: CT scan chest dated 10/11/2016 HISTORY: Left-sided chest pain COMPARISON: No prior TECHNIQUE: Contiguous axial images were obtained through the chest without intravenous contrast enhancement. Sagittal and coronal reconstructions were performed. Radiation dose (DLP): 700.13 mGy-cm. This CT exam was performed using one or more of the following dose reduction techniques: Automated exposure control, adjustment of the mA and/or kV according to patient size, and/or use of iterative reconstruction technique. FINDINGS: LUNGS: Mild linear atelectasis and or scarring seen in both lung bases and to a lesser degree lingular and middle lobe regions. There is also some mild passive atelectasis both posterior lower lung barboza. No focal consolidation. . No obvious masses or nodules. MEDIASTINUM: The heart size is within range of normal. There is a small pericardial effusion with slight irregularity along the peripheral margin of the at anterior component of the pericardial effusion. The Hounsfield units (HU) range between single to upper teens which is suspicious for proteinaceous material (simple pericardial effusion Hounsfield units HU) usually are close to fluid attenuation - HU = 0 . Rule out exudative pericardial effusion or pericarditis. Clinical correlation recommended. Followup cardiology consultation and endoscopy echocardiogram recommended. Coronary artery calcifications are present. . Ascending thoracic aorta measures approximately 2.96 cm and descending thoracic aorta measures approximately 2.3 cm. Pulmonary trunk measures approximately 2.36 cm. Multiple small nonspecific mediastinal lymph nodes are present. Central airways are midline and patent. No endoluminal lesions are seen. . There is a tiny hiatal hernia. PLEURA: No evidence of pleural effusion or pneumothorax. BONES: Very minor multilevel degenerative spondylosis of the thoracic spine. No acute or chronic compression fractures nor retropulsed fragments. . No suspicious lytic or blastic lesions identified. Visualized ribs appear intact. UPPER ABDOMEN: Mild nonspecific infiltration changes seen within the perinephric fat. Note made of a small accessory spleen- splenule. The remaining visualized upper abdominal structures appear grossly unremarkable. OTHER FINDINGS: None. IMPRESSION: There is a small pericardial effusion with slight irregularity along the peripheral margin of the at anterior component of the pericardial effusion. The Hounsfield units (HU) range between single to upper teens which is suspicious for proteinaceous material (simple pericardial effusion Hounsfield units HU) usually are close to fluid attenuation - HU = 0 . Rule out exudative pericardial effusion or pericarditis. Clinical correlation recommended. Followup cardiology consultation and endoscopy echocardiogram recommended. Mild linear atelectasis and or scarring both lung bases including the lingular and middle lobe regions. There are also mild passive atelectatic changes seen in the posterior lung barboza. Small hiatal hernia. Mild infiltration changes seen in the perinephric fat nonspecific. Findings discussed with Emergency room SHONNA Cunningham at approximately 6:15 p.m. with written down and read back verification.
[2016-10-11] MEDS ORDERED: Pneumococcal 23-Valent Vaccine IM ONE (22:55)
[2016-10-11] MEDS: Oxycodone/Acetaminophen 5/325 mg Tab PO PRN (23:05)
--- NOTE | 2016-10-12 00:35 | HP ---
CHIEF COMPLAINT: Left anterior chest pain for 2 days. HISTORY OF PRESENT ILLNESS: A 41-year-old male with history of coronary artery disease, status post acute myocardial infarct in 07/2016 and hypertension who presented to Emergency Room with left substernal chest pain started yesterday. The patient described this pain as sharp, worse on lying on the left side and movement. The patient denies any pain radiation to arms. He denies any heart palpitations, diaphoresis. He denies any fever. He denies any shortness of breath. The pain is severe and intermittently 10 on scale of 1-10. PAST MEDICAL HISTORY: Significant for recent myocardial infarction in 07/2016, patient was at that time treated and underwent 2 cardiac catheterizations with angioplasty and stent. He also developed pneumonia and pericarditis. He had repeated cardiac catheterization 3 weeks ago due to recurrence of his chest pain and had another stent. He has history of hypertension, hyperlipidemia, anxiety. ALLERGIES: He has no known allergies. CURRENT MEDICATIONS: Atorvastatin, amlodipine, ramipril, sertraline, Effient and metoprolol. FAMILY HISTORY: History of coronary artery disease on father's side and mother , chronic low back pain. SOCIAL HISTORY: The patient is an ex-smoker. He quit smoking 3 months ago. He used to smoke 1 pack a day for the past 20 years. The patient has a history of alcohol use socially. He denies any drug use. The patient is single, lives with mother. 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 He is independent of activity of daily living. REVIEW OF SYSTEMS: He denies any fever, weight loss, loss of appetite. He denies any sore throat, headache. He denies cough, shortness of breath, wheezing. He complains of left substernal chest pain, but denies any shortness of breath, palpitation or diaphoresis. He denies any epigastric pain, abdominal pain, nausea, vomiting, diarrhea or constipation. He denies any flank pain, dysuria, or hematuria. The patient denies any neurological symptoms of muscle weakness or neuropathy. He denies any tremor or headache. The patient has history of anxiety and insomnia, as well as depressed mood. PHYSICAL EXAMINATION: VITAL SIGNS: Stable. Temperature 98.4, blood pressure 129/83, pulse rate 77 and regular, respiratory rate 18, oxygen saturation is 98% on room air. HEAD: Normocephalic, atraumatic. EYES: Pupils reactive to light. Oral mucosa is moist. NECK: Supple, no neck masses. LUNGS: With decreased breath sounds in bases. No rales, wheezing or crackles. HEART: Regular rhythm and rate. ABDOMEN: Soft, nontender, nondistended. Bowel sounds are positive. There is no muscle tenderness on palpation. EXTREMITIES: With no edema, cyanosis or clubbing. NEUROLOGIC: Normal. CARDIOVASCULAR: Normal. DIAGNOSTIC TESTS: CBC with WBC 13, hemoglobin 14.5, hematocrit 41.2 and platelet count 282. PT, PTT is normal. Chemistry with normal electrolytes. His BUN is 9, creatinine 0.7, random glucose was 133. Troponin level was negative. EKG showed normal sinus rhythm, left axis deviation, old inferior posterior infarct and ST-T changes, nonspecific. Chest x-ray showed no active pulmonary disease. ASSESSMENT: 1. A 41-year-old male with history of coronary artery disease and recent cardiac catheterization and a myocardial infarction who presented with a new onset of left and substernal chest pain with abnormal and nonspecific EKG changes. Must rule out new acute coronary syndrome. 2. Nonspecific left side chest pain. Must rule out pericarditis. 3. Hypertension. 4. Hyperlipidemia. 5. Anxiety. PLAN OF TREATMENT: The patient will be admitted for observation. Will repeat troponin. Will continue his chronic medication, atorvastatin, Effient, beta jose and ramipril. I will order CT scan of the chest for better evaluation of chest pain, considering other etiologies as lung pathology. Erin Figueroa MD cc: [id number] TT: 10/12/2016 00:34:29 james NDIAYE
[2016-10-12 07:08] LABS: HEMATOCRIT 42.8 % (42.0-52.0); MEAN CELL VOLUME 95.1 fL (80.0-105.0); MEAN CORPUSCULAR HEMOGLOBIN 33.1 pg (25.0-35.0); MEAN CORPUSCULAR HGB CONC 34.8 g/dl (31.0-37.0); RED CELL DISTRIBUTION WIDTH 13.5 % (11.5-14.5); WHITE BLOOD COUNT 12.3 10^3/ul (4.5-11.0)
[2016-10-12] MEDS ORDERED: Metoprolol Succinate 100 mg XL Tab PO SCH (08:00)
[2016-10-12] MEDS: Oxycodone/Acetaminophen 5/325 mg Tab PO PRN (08:22)
--- NOTE | 2016-10-12 09:03 | CP.PCM.PN ---
Subjective - Date & Time of Evaluation Date of Evaluation: 10/12/16 Time of Evaluation: 07:00 - Subjective Subjective: Stable on 2R. Still CP on and off. Pleuritic. No SOB. V/S noted. PE: Lungs: clear Cor.: S1S2 Abd.: soft Ext.: no edema Neuro.: alert Labs noted: WBC= 12,300, trops neg x 2 ECG 10/11: RSR, LAHB, IPMI, ST changes CT Chest noted: Small peric. effusion, etc. Objective - Vital Signs/Intake and Output Vital Signs (last 24 hours): Temp Pulse Resp BP Pulse Ox 98.4 F 82 20 117/85 99 10/12/16 06:00 10/12/16 06:00 10/12/16 06:00 10/12/16 06:00 10/12/16 06:00 Intake and Output: 10/12/16 10/12/16 06:59 18:59 Intake Total 180 Output Total 450 Balance -270 - Medications Medications: Current Medications Amlodipine Besylate (Norvasc) 5 mg PO DAILY [facility] Aspirin (Ecotrin) 81 mg PO DAILY [facility] Atorvastatin Calcium (Lipitor) 80 mg PO DIN [facility] Last Admin: 10/11/16 18:46 Dose: Not Given Ibuprofen (Motrin Tab) 600 mg PO Q6H [facility] Metoprolol Succinate (Toprol Xl) 100 mg PO BRK [facility] Oxycodone/Acetaminophen (Percocet 5/325 Mg Tab) 1 tab PO Q4 PRN PRN Reason: Pain, moderate (4-7) Stop: 10/14/16 20:01 Last Admin: 10/12/16 08:22 Dose: 1 tab Prasugrel (Effient) 10 mg PO DAILY [facility] Sertraline HCl (Zoloft) 100 mg PO DAILY [facility] - Labs Labs: 10/12/16 05:30 PT 10.8 Seconds (9.9-11.8) 10/11/16 10:25 INR 1.00 (0.93-1.08) 10/11/16 10:25 APTT 28.1 Seconds (23.7-30.8) 10/11/16 10:25 Assessment and Plan - Assessment and Plan (Free Text) Plan: Assessment: 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 and Diagonal br. HBP HLD Former Smoker Discogenic Disease with back surgery Plan: Echo today Trial ibuprophen Check ECG and trop today OOB as sarbjit.
[2016-10-12 09:22] LABS: ALB/GLOB RATIO 1.4 (1.1-1.8); ALKALINE PHOSPHATASE 90 U/L (38-133); ALT/SGPT 61 U/L (7-56); AST/SGOT 21 U/L (15-59); BILIRUBIN,TOTAL 0.8 mg/dL (0.2-1.3); BLOOD UREA NITROGEN 11 mg/dL (7-21); CALCIUM 9.8 mg/dL (8.4-10.5); CARBON DIOXIDE 24 mmol/L (21-33); CHLORIDE 101 mmol/L (98-107); GFR AFRICAN-AMERICAN > 60; GLUCOSE,RANDOM 130 mg/dL (70-110); POTASSIUM 4.1 mmol/L (3.6-5.0); SODIUM 137 mmol/L (132-148); TOTAL PROTEIN 7.8 g/dL (5.8-8.3)
--- NOTE | 2016-10-12 10:15 | CARD ---
APPROVED REPORT EKG Measurement Heart [id number] <Conclusion> Normal sinus rhythm Left anterior fascicular block Inferior-posterior infarct, age undetermined T wave inverted V 6 now
[2016-10-12 10:30] LABS: TROPONIN I < 0.01 ng/mL
--- NOTE | 2016-10-12 13:46 | CARD ---
APPROVED REPORT EKG Measurement Heart [id number] MI [id number] <Conclusion> Normal sinus rhythm Left axis deviation Possible Lateral infarct, age undetermined Inferior-posterior infarct, age undetermined STTW changes c/w ischemia
--- NOTE | 2016-10-12 20:48 | PN ---
DATE: 10/12/2016 SUBJECTIVE: The patient was admitted for substernal left lateral chest pain. He is feeling better, but continues with some pain when lying down, especially on the left side. He denies any shortness of breath. PHYSICAL EXAMINATION: VITAL SIGNS: Temperature normal 98.4, blood pressure 117/85, pulse 82, respiratory rate 20. GENERAL: The patient is comfortable, lying in bed, alert, awake, oriented. HEENT: Head is normocephalic, atraumatic. Oral mucosa is moist. NECK: Supple. LUNGS: Clear to auscultation. HEART: Regular rhythm and rate. ABDOMEN: Soft, nontender, nondistended. EXTREMITIES: With no edema. DIAGNOSTIC TESTS: CBC this morning shows persistent elevation of WBC at 12.3, hemoglobin 14.9. Chemistry with normal electrolytes. Troponin negative, all 3 sets. He has elevated CRP at 15. His sed rate is normal. CT scan of chest showed small pericardial effusion with some irregularities of the margin with possibility of pericarditis. There are also small atelectasis in the posterior lungs barboza. No other acute pathology of lungs. Echocardiogram done this morning is still pending. ASSESSMENT: 1. 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 2. Hypertension. 3. Coronary artery disease with negative troponins. PLAN OF TREATMENT: Follow up echocardiogram for evaluation of the size of pericardial effusion. We will continue present therapy. 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 Will continue with gastric protection with Pepcid. Erin Figueroa MD cc: [id number] TT: 10/12/2016 20:48:03 Confirmation # [id number] Dictation # [id number] reggie NDIAYE
[2016-10-13 06:29] VITALS: BP 124/95; PULSE 90; RESP 19; TEMP 98.3; O2SAT 97
--- NOTE | 2016-10-13 07:59 | CP.PCM.PN ---
Subjective - Date & Time of Evaluation Date of Evaluation: 10/13/16 Time of Evaluation: 07:00 - Subjective Subjective: Stable on 2R. Still pleuritic CP on and off but better with ibuprophen and Percocet. No SOB. Was OOB to BR yesterday. V/S noted. PE: Lungs: clear Cor.: S1S2 Abd.: soft Ext.: no edema Neuro.: alert Labs noted: WBC= 12,300, trops neg x 3 ECG 10/12: RSR, LAHB, IPLMI, ST changes CT Chest noted: Small peric. effusion, etc. Echo pending: Prelim: very small peric. effusion only Objective - Vital Signs/Intake and Output Vital Signs (last 24 hours): Temp Pulse Resp BP Pulse Ox 98.3 F 90 19 124/95 H 97 10/13/16 06:00 10/13/16 06:00 10/13/16 06:00 10/13/16 06:00 10/13/16 06:00 Intake and Output: 10/13/16 10/13/16 06:59 18:59 Intake Total 720 Balance 720 - Medications Medications: Current Medications Amlodipine Besylate (Norvasc) 5 mg PO DAILY [facility] Last Admin: 10/12/16 10:45 Dose: 5 mg Aspirin (Ecotrin) 81 mg PO DAILY [facility] Last Admin: 10/12/16 10:45 Dose: 81 mg Atorvastatin Calcium (Lipitor) 80 mg PO DIN [facility] Last Admin: 10/12/16 17:51 Dose: 80 mg Famotidine (Pepcid) 20 mg PO 1000,2200 [facility] Last Admin: 10/12/16 22:27 Dose: 20 mg Ibuprofen (Motrin Tab) 600 mg PO Q6H [facility] Last Admin: 10/13/16 04:00 Dose: Not Given Metoprolol Succinate (Toprol Xl) 100 mg PO BRK [facility] Last Admin: 10/12/16 08:00 Dose: Not Given Oxycodone/Acetaminophen (Percocet 5/325 Mg Tab) 1 tab PO Q4 PRN PRN Reason: Pain, moderate (4-7) Stop: 10/14/16 20:01 Last Admin: 10/12/16 08:22 Dose: 1 tab Prasugrel (Effient) 10 mg PO DAILY [facility] Last Admin: 10/12/16 10:46 Dose: 10 mg Sertraline HCl (Zoloft) 100 mg PO DAILY [facility] Last Admin: 10/12/16 10:45 Dose: 100 mg - Labs Labs: 10/12/16 05:30 10/12/16 08:10 PT 10.8 Seconds (9.9-11.8) 10/11/16 10:25 INR 1.00 (0.93-1.08) 10/11/16 10:25 APTT 28.1 Seconds (23.7-30.8) 10/11/16 10:25 Assessment and Plan - Assessment and Plan (Free Text) Plan: Assessment: CP/Possible Lillaina's Syndrome CAD/recent [place]/Post [place] pericarditis PCI's C.A. and Diagonal br. HBP HLD Former Smoker Discogenic Disease with back surgery Plan: Increase ibuprophen 800 Q6H Decrease Percocet as able OOB as sarbjit./ PT
--- NOTE | 2016-10-13 08:41 | CARD ---
APPROVED REPORT EXAM: Two-dimensional and M-mode echocardiogram with Doppler and color Doppler. Other Information Quality : GoodRhythm : INDICATION Chest Pain 2D DIMENSIONS Left Atrium (2D)3.5 (1.6-4.0cm)IVSd1.1 (0.7-1.1cm) LVDd4.4 (3.9-5.9cm)PWd1.0 (0.7-1.1cm) LVDs2.8 (2.5-4.0cm)FS (%) 37.4 % LVEF (%)67.0 (>50%) M-Mode DIMENSIONS Aortic Root2.90 (2.2-3.7cm)Aortic Cusp Exc.2.10 (1.5-2.0cm) Aortic Valve AoV Peak Dnlaajiy584.0cm/s Mitral Valve MV E Buykqnud25.9cm/sMV A Mfvqtobk58.8cm/sE/A ratio0.6 TDI E/Lateral E'0.0E/Medial E'0.0 LEFT VENTRICLE The left ventricle is normal size. There is normal left ventricular wall thickness. The left ventricular function is normal. The left ventricular ejection fraction is within the normal range. There is normal LV segmental wall motion. RIGHT VENTRICLE The right ventricle is normal size. ATRIA The left atrium size is normal. The right atrium size is normal. The interatrial septum is intact with no evidence for an atrial septal defect. AORTIC VALVE The aortic valve is normal in structure. MITRAL VALVE The mitral valve is normal in structure. TRICUSPID VALVE The tricuspid valve is normal in structure. There is trace tricuspid regurgitation. PULMONIC VALVE The pulmonary valve is normal in structure. PERICARDIAL EFFUSION Trivial pericardial effusion present. <Conclusion> The left ventricle is normal size. There is normal left ventricular wall thickness. The left ventricular function is normal. Trivial pericardial effusion present.
[2016-10-13 08:59] LABS: HEMATOCRIT 42.9 % (42.0-52.0); MEAN CELL VOLUME 95.3 fL (80.0-105.0); MEAN CORPUSCULAR HEMOGLOBIN 33.6 pg (25.0-35.0); MEAN CORPUSCULAR HGB CONC 35.2 g/dl (31.0-37.0); MEAN PLATELET VOLUME 10.7 fl (7.0-11.0); RED CELL DISTRIBUTION WIDTH 13.2 % (11.5-14.5); WHITE BLOOD COUNT 11.3 10^3/ul (4.5-11.0)
--- NOTE | 2016-10-13 09:41 | DS ---
The patient was admitted for left substernal and lateral chest pain. His troponin set was negative during hospitalization and electrocardiogram showed normal sinus rhythm with nonspecific ST-T changes. The patient is feeling much better. He was started on anti-inflammatory medication, ibuprofen 600 mg yesterday. He tolerates medication. PHYSICAL EXAMINATION: VITAL SIGNS: Normal with temperature 98.3, blood pressure 124/95, respiratory rate 20 and pulse 76. GENERAL: He is alert, awake, oriented. HEENT: Head is normocephalic, atraumatic. Oral mucosa is moist. NECK: Supple. LUNGS: Clear to auscultation. HEART: With regular rhythm and rate. ABDOMEN: Soft, nontender, nondistended. EXTREMITIES: With no edema. LABORAORY DATA: His CRP is elevated, 15. Echocardiogram showed left ventricle with normal size and contractility. There is still a small pericardial effusion , not hemodynamically significant. ASSESSMENT: 1. Left substernal chest pain with small pericardial effusion and signs of pericarditis, Lilliana syndrome type. 2. Coronary artery disease. No acute coronary event. 3. Hypertension. 4. Hyperlipidemia. 5. Anxiety. PLAN OF TREATMENT: Case was discussed with roll scale man. We will discharge patient home today. The patient will be maintained on his chronic medicines, Effient, amlodipine, metoprolol, sertraline, atorvastatin, aspirin. The patient will be maintained on ibuprofen 600 mg 3 times a day and Pepcid 20 mg twice a day for gastric protection. The patient was advised to follow up with primary care doctor next week. Erin Figueroa MD cc: [id number] TT: 10/13/2016 09:40:44 loretta MTDEthan
== END 2016-10-13 10:52 | disposition home or self-care (01) ==
LOC: ED 09:47 → ERH 13:17 → 2RNO 23:22
PROVIDERS: ADMIT Family Medicine; ATTEND Family Medicine
DX: I24.1 Dressler's syndrome (principal); E78.5 Hyperlipidemia, unspecified; I10 Essential (primary) hypertension; F41.9 Anxiety disorder, unspecified; Z87.891 Personal history of nicotine dependence; I25.2 Old myocardial infarction; I25.10 Atherosclerotic heart disease of native coronary artery without angina pectoris; J98.11 Atelectasis; K44.9 Diaphragmatic hernia without obstruction or gangrene; Z79.82 Long term (current) use of aspirin; Z79.899 Other long term (current) drug therapy; Z82.49 Family history of ischemic heart disease and other diseases of the circulatory system; Z95.5 Presence of coronary angioplasty implant and graft; F32.89 Other specified depressive episodes; R40.2412 Glasgow coma scale score 13-15, at arrival to emergency department
CPT/HCPCS: 36415; 71010; 71250; 80053; 82550; 83615; 84484; 85025; 85027; 85610; 85651; 85730; 86140; 93005; 93306; 99282; G0378